=== PATIENT | female | born 1960 | race Caucasian/White ===

== ENCOUNTER 2017-09-23 06:08 | Day surgery (SDC) | payer OTHER ==
[~2017-09-23 06:08] MED LIST: Buffered Lidocaine 0.9% SYRIN* 5 ML/SYR SYRINGE INTRADERM ONE
[2017-09-23] MEDS ORDERED: Buffered Lidocaine 0.9% SYRIN* 5 ML/SYR SYRINGE ONE (06:41)
[2017-09-23] MEDS ORDERED: CeFAZolin 1 GM PREMIX(*) 1 GM BAG (REFRIGERATE) IVPB ONE (07:05)
[2017-09-23] MEDS ORDERED: ceFAZolin 2 GM PREMIX (*) 2 GM/50 ML BAG IVPB ONE (07:05)
[2017-09-23] MEDS ORDERED: Clindamycin 900 MG IVPREMIX(* 0 MG/0 ML SDV IV ONE (07:05)
[2017-09-23] MEDS ORDERED: Lidocaine 1% INJ* 10 MG/ML 30 ML SDV ONE (07:08)
[2017-09-23] MEDS ORDERED: fentaNYL* 50 MCG/ML 2 ML VIAL (100 MCG VIAL) ONE ×2 (07:51→08:31)
[2017-09-23] MEDS ORDERED: Midazolam* 1 MG/ML 5 ML VIAL (5 MG) ONE (07:51)
[2017-09-23] MEDS ORDERED: Propofol* 10 MG/ML 20 ML BTL IV PUSH ONE (08:05)
--- NOTE | 2017-09-23 09:02 | SURGPN ---
Brief Operative Note - Surgery Procedures: Procedures OPERATIVE REPORT PRE-OP: Uterine Sarcoma POST-OP: Same PROCEDURE: Insertion of left chest wall 8F percutaneous PowerPort, needle in SURGEON: MD Jessica ANESTHESIA:Local with MAC Dr. Christina ASST: none IVF: min EBL:min SPECIMEN: none DRAIN: none WOUND CLASS: One COMPLICATIONS: none TO PACU
[2017-09-23] MEDS ORDERED: oxyCODONE/Acetamin 5/325 MG* TAB ONE ×2 (09:05→09:27)
[2017-09-23] MEDS: oxyCODONE/Acetamin 5/325 MG* TAB PO PRN ×2 (09:07→09:27)
--- NOTE | 2017-09-23 09:44 | RAD ---
Indication: Central venous catheter placement. Single frontal view of the chest performed at 0915 hours was reviewed. Comparison is made with previous exam dated November 07, 2016. No mediastinal shift is noted. Cardiomegaly is noted. Central catheter is in place with the tip in the superior vena cava. No pneumothorax is noted. IMPRESSION: NO ACTIVE CARDIOPULMONARY DISEASE IS NOTED. CENTRAL CATHETER IN PLACE WITH NO PNEUMOTHORAX.
[2017-09-23 09:57] VITALS: BP 129/73
--- NOTE | 2017-09-23 10:10 | RAD ---
INDICATION: Power port placement. COMPARISON: Comparison is made with a prior chest x-ray study from November 07, 2016. TECHNIQUE: 59.8 seconds of intermittent fluoroscopic guidance were provided and 2 spot films of the chest were obtained in the operating room. FINDINGS: The films demonstrate a power port central venous catheter. The port is on the left side. The catheter tip projects over the right atrium. IMPRESSION: INTRAOPERATIVE CONTROL FILMS. CPT II Codes: 6045F
--- NOTE | 2017-09-24 04:02 | OP ---
CC: Dr. Viet Atkinson * DATE OF OPERATION: 09/23/17 - [facility] DATE OF : 64 SURGEON: Sachin Lopez MD DIE GRINDER: None. ANESTHESIOLOGIST: Dr. Christina. ANESTHESIA: Local with monitored anesthesia care. PRE-OP DIAGNOSIS: Uterine sarcoma. POST-OP DIAGNOSIS: Uterine sarcoma. OPERATIVE PROCEDURE: Insertion of a left chest wall percutaneous 8-Polish PowerPort, needle-in. ESTIMATED BLOOD LOSS: Minimal. SPECIMENS: None. DRAINS: None. COMPLICATIONS: None. WOUND CLASSIFICATION: I. DESCRIPTION OF PROCEDURE: Written and informed consent was obtained, preoperative antibiotics were administered and the left chest was marked with indelible ink. The patient was taken to the operating room and placed in the supine position. Sequential compression devices and a warming blanket were applied. The left and right chest and neck were prepped and draped in the usual sterile fashion. Time-out verification was completed. The patient was then placed in Trendelenburg position and 1% lidocaine with epinephrine was infiltrated in the left infraclavicular area at the midline and using an 18-gauge Tuohy needle after about 3 to 4 passes underneath the clavicle , I was able to puncture the subclavian vein with good blood return. The guidewire was inserted without difficulty and was then confirmed to be in the superior vena cava. Additional lidocaine was infiltrated inferior on the chest wall below the stick site and a transverse incision was made and subcutaneous pocket was made large enough to permit the port. The catheter was then tunnelled from the port pocket to the puncture site and using the sheath peel away device, the catheter was inserted into the right atrium under direct fluoroscopic vision. The catheter was pulled back slightly to optimize its position in the right part of the junction with the superior vena cava. The catheter was then cut to the appropriate length, attached to the port, which was then placed within the pocket. The catheter flushed well and withdrew blood with a Mandel needle without difficulty. Hemostasis was assured. The pocket site and the puncture site were then closed in 3-0 and 4-0 Polysorb suture. Steri-Strips were applied. At the completion of the case, a right angled Mandel needle was used to access the port and this was flushed with saline with subsequent heparin and a sterile dressing was applied. This was done in the anticipation of chemotherapy administration today. The patient tolerated the procedure well and was sent to the recovery room in stable condition. Postprocedural chest x-ray showed the catheter to be in good position without evidence of pneumothorax. [id number]/[facility] #: [id number] MTDD
== END 2017-09-23 09:57 | disposition home or self-care (01) ==
LOC: OR 06:08
PROVIDERS: ATTEND Surgery
DX: C54.2 Malignant neoplasm of myometrium (principal); E66.9 Obesity, unspecified; I10 Essential (primary) hypertension; J45.909 Unspecified asthma, uncomplicated; F41.9 Anxiety disorder, unspecified; Z88.1 Allergy status to other antibiotic agents; Z87.891 Personal history of nicotine dependence; E11.9 Type 2 diabetes mellitus without complications; Z68.42 Body mass index [BMI] 45.0-49.9, adult
CPT/HCPCS: 71010; A9270-GY; C1788; J0690; J1642; J2001; J2250; J2704; J3010

== ENCOUNTER 2018-01-16 09:22 | Inpatient (IN) | payer OTHER ==
[2018-01-16 09:57] LABS: Hematocrit 33 % (35-47); Hemoglobin 10.9 g/dl (12.0-16.0); Mean Corpuscular HGB Conc 34 g/dl (31-36); Mean Corpuscular Hemoglobin 31 pg (27-31); Mean Corpuscular Volume 93 fL (80-97); Mean Platelet Volume 9 um3 (7.4-10.4); Platelet Count 150 10^3/ul (150-450); Red Cell Distribution Width 21 % (10.5-15); White Blood Count 3.6 10^3/ul (3.5-10.8)
[2018-01-16 10:05] LABS: INR 1.21 (0.77-1.02)
[2018-01-16 10:12] LABS: EGFR Non-African American 117.2 (>60)
--- NOTE | 2018-01-16 10:30 | RAD ---
Indication: Shortness of breath. Single frontal view of the chest performed at 1010 hours was reviewed. Comparison is made with previous exam dated September 23, 2017. Cardiomegaly is noted. Interstitial edema consistent with vascular congestion is noted. Pacemaker leads are in place. IMPRESSION: CARDIOMEGALY WITH INTERSTITIAL EDEMA CONSISTENT WITH VASCULAR CONGESTION. CENTRAL LINE IN PLACE.
[2018-01-16 10:32] LABS: ABS Basophils 0 10^3/ul (0-0.2); ABS Eosinophils 0 10^3/ul (0-0.6); ABS Lymphocytes 1.1 10^3/ul (1.0-4.8); ABS Monocytes 1.3 10^3/ul (0-0.8); ABS Neutrophils 1.2 10^3/ul (1.5-7.7); ABS Nucleated RBC 0 10^3/ul; Eosinophil % 0.3 % (0-6); Lymphocyte % 30.4 % (25-47); Nucleated Red Blood Cells % 0
[2018-01-16] MEDS ORDERED: Furosemide IV* 10 MG/ML 10 ML VIAL (100 MG) IV ONE (10:44)
--- NOTE | 2018-01-16 11:00 | RAD ---
Indication: Shortness of breath. 2 views of the chest including dual energy PA views demonstrates cardiomegaly. Interstitial edema consistent with vascular congestion is noted. Central catheter is in place. When compared to September 23, 2017 increased interstitial edema is noted. IMPRESSION: Increased interstitial edema and cardiomegaly consistent with vascular congestion.
[2018-01-16] MEDS ORDERED: Nitroglycerin 2% OINT* 1 GM PAK TOPICAL ONE (11:06)
[2018-01-16] MEDS ORDERED: Docusate CAP* 100 MG PO PRN (11:46)
[2018-01-16] MEDS ORDERED: guaiFENesin/CODIEN 100MG-10MG* 5 ML UDC PO PRN (11:46)
[2018-01-16] MEDS ORDERED: Acetaminophen TAB* 325 MG PO PRN (11:49)
[2018-01-16] MEDS ORDERED: Ondansetron INJ* 2 MG/ML VIAL IV PRN (11:49)
[2018-01-16] MEDS ORDERED: Levalbuterol 1.25MG/0.5ML NEB INH PRN (11:53)
[2018-01-16] MEDS ORDERED: Albuterol HFA INHALER* 8 gm MDI INH SCH (12:00)
--- NOTE | 2018-01-16 12:03 | ED ---
Inge Wang Julia, scribed for Will Dickerson MD on 01/16/18 at 0933 . Shortness of Breath - HPI Summary HPI Summary: This patient is a 57 year old F presenting to [facility] from the [facility] due to low SaO2 of 60% and a respiratory rate between 31-38. Patient reports SOB and intermittent gradually worsening cough for the past month that is being treated with steroids. Patient denies fever, chills, lower extremity edema, and chest pain. Patient is currently at patient of Dr. Wharton for uterine cancer. Dr. Atkinson is expected to come visit this patient in the ED. - History of Current Complaint Hx Obtained From: Patient, Other: - nurse Onset/Duration: Lasting Weeks, Still Present Timing: Intermittent Episodes Lasting: Dyspnea At: Rest Associated Signs & Symptoms: Cough (Nonproductive) - Allergy/Home Medications Allergies/Adverse Reactions: Allergies Allergy/AdvReac Type Severity Reaction Status Date / Time doxycycline AdvReac Stomach Verified 12/30/17 09:29 Cramps Home Medications: Home Medications Cetirizine* [ZyrTEC 10 MG TAB*] 10 mg PO DAILY 01/16/18 [History Confirmed 01/16] Dexamethasone TAB* [Decadron TAB*] 4 mg PO BID PRN 01/16/18 [History Confirmed 01/16/18] Diltiazem CD CAP* [Cardizem CD CAP*] 120 mg PO DAILY 01/16/18 [History Confirmed 01/16/18] Docusate CAP* [Colace Cap*] 100 mg PO BID PRN 01/16/18 [History Confirmed ] Fluticasone HFA 220 mcg(NF) [Flovent HFA 220 Mcg(NF)] 1 puff INH BID 01/16/18 [ History Confirmed 01/16/18] Magic Mouth Was-KEVIN/MAAL/LIDO* 5 ml SWISH SPIT QID 01/16/18 [History Confirmed 01/16/18] Magnesium Oxide TAB* [MagOx 400 TAB*] 400 mg PO DAILY 01/16/18 [History Confirmed 01/16/18] Omeprazole CAP* [Prilosec CAP* 20 MG] 20 mg PO DAILY 01/16/18 [History Confirmed 01/16/18] Prochlorperazine TAB* [Compazine Tab*] 10 mg PO Q6H PRN 01/16/18 [History Confirmed 01/16/18] guaiFENesin/CODIEN 100MG-10MG* [Robitussin AC 100Mg-10Mg*] 10 ml PO Q4H PRN [History Confirmed 01/16/18] PMH/Surg Hx/FS Hx/Imm Hx Endocrine/Hematology History: Denies: Hx Diabetes, Hx Thyroid Disease Cardiovascular History: Reports: Hx Hypertension - ON MEDS, Other Cardiovascular Problems/Disorders - tachycardia Denies: Hx Congestive Heart Failure, Hx Pacemaker/ICD Respiratory History: Reports: Hx Asthma Denies: Hx Chronic Obstructive Pulmonary Disease (COPD) GI History: Denies: Hx Ulcer History: Reports: Other Problems/Disorders - Yearly UTI's Denies: Hx Dialysis, Hx Renal Disease Musculoskeletal History: Reports: Hx Arthritis, Hx Orthopedic Injury Sensory History: Reports: Hx Contacts or Glasses - not with Pt Denies: Hx Hearing Aid Opthamlomology History: Reports: Hx Contacts or Glasses - not with Pt Psychiatric History: Reports: Hx Anxiety, Hx Depression, Hx Panic Disorder - Cancer History Cancer Type, Location and Year: UTERINE Hx Chemotherapy: Yes - Surgical History Surgery Procedure, Year, and Place: 2010 - Right Rotator Cuff Surgery. 1981 - RIGHT knee surgery. trigger thumb-LEFT, RIGHT SHOULDER SURGERY, PARTIAL REMOVAL SMALL INTESTINES, PARTIAL BLADDER AND HYSTERECTOMY Hx Anesthesia Reactions: No - Immunization History Date of Tetanus Vaccine: up to date Date of Influenza Vaccine: 2014 Infectious Disease History: Denies: Hx Clostridium Difficile, Hx Hepatitis, Hx Human Immunodeficiency Virus (HIV), Hx of Known/Suspected MRSA, Hx Shingles, Hx Tuberculosis, Hx Known/ Suspected VRE, Hx Known/Suspected VRSA, History Other Infectious Disease - Family History Known Family History: Positive: Hypertension - Social History Alcohol Use: Daily Alcohol Amount: lots Hx Substance Use: No Substance Use Type: Reports: None Hx Tobacco Use: No Smoking Status (MU): Former Smoker Amount Used/How Often: < 1 ppd Length of Time of Smoking/Using Tobacco: 10 years Have You Smoked in the Last Year: No Review of Systems Negative: Fever, Chills Negative: Chest Pain Positive: Shortness Of Breath, Cough Negative: Edema All Other Systems Reviewed And Are Negative: Yes Physical Exam Triage Information Reviewed: Yes Vital Signs On Initial Exam: Initial Vitals Pulse Ox 99 01/16/18 09:30 Vital Signs Reviewed: Yes Appearance: Positive: Well-Appearing, No Pain Distress Skin: Positive: Warm, Skin Color Reflects Adequate Perfusion Head/Face: Positive: Normal Head/Face Inspection Eyes: Positive: EOMI ENT: Positive: Pharynx normal Neck: Positive: Supple, Nontender Respiratory/Lung Sounds: Positive: Clear to Auscultation, Breath Sounds Present Cardiovascular: Positive: RRR. Negative: Murmur Abdomen Description: Positive: Nontender Musculoskeletal: Positive: Strength/ROM Intact. Negative: Edema Left, Edema Right Neurological: Positive: Sensory/Motor Intact, Alert, Oriented to Person Place, Time, CN Intact II-III Psychiatric: Positive: Normal - Hesham Coma Scale Best Eye Response: 4 - Spontaneous Best Motor Response: 6 - Obeys Commands Best Verbal Response: 5 - Oriented Coma Scale Total: 15 Diagnostics - Vital Signs Vital Signs Temp Pulse Resp BP Pulse Ox 01/16/18 09:35 96 01/16/18 09:32 98.5 F 103 24 114/76 71 01/16/18 09:30 99 - Laboratory Result Diagrams: 01/16/18 09:45 01/16/18 09:45 Lab Statement: Any lab studies that have been ordered have been reviewed, and results considered in the medical decision making process. - Radiology CXR Radiology Interpretation Completed By: Radiologist - CARDIOMEGALY WITH INTERSTITIAL EDEMA CONSISTENT WITH VASCULAR CONGESTION. CENTRAL LINE IN PLACE. ED Physician has reviewed this report. CXR 2 Radiology Interpretation Completed By: Radiologist - Increased interstitial edema and cardiomegaly consistent with vascular congestion. ED Physician has viewed this report - EKG 0937 Cardiac Rate: NL - 98 BPM EKG Rhythm: Sinus Rhythm EKG Interpretation: nml OH, RBBB EKG Comparison: No Significant Change - RBBB present 12/24/16 Course/Dx - Course Course Of Treatment: Patient presents from [facility] for SOB with SaO2 of 60% and respiratory rate of 31-38. Patient is undergoing chemo for uterine cancer. An EKG reveals RBBB with no significant change from previous EKG. A CXR reveals cardiomegaly with interstitial fluid. A second CXR confirms these findings. Labs reveal a Lactic Acid of 3.2. Patient is given O2 therapy and Lasix. Dr. Atkinson saw this patient in the ED. He will admit the patient for further work up and management. - Diagnoses Provider Diagnoses: CHF (congestive heart failure), Hypoxia - Physician Notifications Discussed Care of Patient With: Viet Atkinson - oncology Time Discussed With Above Provider: 11:03 Instructed by Provider To: Will See In ED - Critical Care Time Critical Care Time: 30-74 min Discharge - Discharge Plan Condition: Good Disposition: ADMITTED TO [facility] Referrals: Fatoumata Lerner MD [Primary Care Provider] - The documentation as recorded by the Inge zamarripa Julia accurately reflects the service I personally performed and the decisions made by , Will Dickerson MD.
[2018-01-16] MEDS: LORazepam TAB(*) 1 MG PO PRN ×2 (13:04→20:16)
[2018-01-16] MEDS: methylPREDNISolone 125 MG* 2 ML VIAL IV SCH (13:04)
[2018-01-16] MEDS: Enoxaparin(*) 40 MG/0.4 ML SYR SUBCUT SCH (13:04)
[2018-01-16] MEDS: Magic Mouth Was-BEN/MAAL/LIDO SWISH SPIT SCH ×3 (14:05→20:17)
[2018-01-16] MEDS ORDERED: Loperamide CAP* 2 MG PO PRN (15:14)
[2018-01-16] MEDS: FLUTICASONE 100 MCG INH SCH (19:51)
[2018-01-16] MEDS: oxyCODONE/Acetamin 5/325 MG* TAB PO PRN (20:16)
[2018-01-16] MEDS: Senna TAB PO SCH (20:16)
[2018-01-16] MEDS ORDERED: Fluticasone HFA 220 mcg(NF) MDI INH SCH (21:00)
[2018-01-16] MEDS: D5W IVPB SCH (21:25)
[2018-01-16] MEDS: TRIMETH IVPB SCH (21:25)
[2018-01-16] MEDS: SULFAMETHOXAZOLE IVPB SCH (21:25)
[2018-01-17] MEDS: methylPREDNISolone 125 MG* 2 ML VIAL IV SCH ×2 (00:05→11:23)
--- NOTE | 2018-01-17 00:35 | HP ---
HISTORY AND PHYSICAL: DATE OF ADMISSION: 01/16/18 CHIEF COMPLAINT: Shortness of breath. 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 She was diagnosed in January 2018 and has had a very difficult course. She is currently on second line chemotherapy with gemcitabine and docetaxel, status post 2 cycles. She has had progressive shortness of breath has been on and off over the last 6 weeks. She responds well to steroids and has had some response to diuretics. In general, shortness of breath has been manageable. She was in the emergency room on 01/07/[address] angiogram. She has had diffuse interstitial pattern that was consistent with infection or pneumonia, could be a disease infiltration. Differential diagnosis included fluid overload with a BNP of 188. She had Lasix at that time and a short course of prednisone and improved significantly. She went up to [facility] last week for a second opinion and felt reasonably well during that trip; however, over the past several days, she has had progressive shortness of breath. She has difficulty with any ambulation and even some shortness of breath at rest. She is sleeping reasonably well at night. She has had no fevers or chills, she has had no cough , she is not having chest pain. No cardiac palpitations. No swelling in the ankles. No symptoms of orthostasis. She presented for an echocardiogram that was done earlier today. In the echocardiogram suite xygen saturation in the 70s on room air and was sent to the emergency room. A chest x-ray was done, which essentially is unchanged from prior studies. She had an oxygen saturation of 71% on room air, went up to 98% has required 6 to 8 L of oxygen per nasal cannula. Her blood pressure is 148/88 and vital signs are otherwise stable. Blood work shows hemoglobin of 10.9 and a white count of 3.6. She has a sodium that is down to 125 from a baseline of 135 and she had been 129 recently, she had a lactic acid slightly elevated to 3.2 and a BNP of 135. Notably, she has a LDH of 664. She is being admitted for further evaluation and shortness of breath. PAST MEDICAL HISTORY: 1. Uterine leiomyosarcoma as noted above. 2. Anxiety. 3. Diabetes type 2. 4. Hypertension. 5. Osteoarthritis. PAST SURGICAL HISTORY: 1. In July 2017, had partial tumor resection. 2. History of rotator cuff repair. MEDICATIONS: She takes: 1. Albuterol 1 to 2 puffs q.6 p.r.n. 2. Cetirizine 10 mg daily. 3. Colace 1 to 2 tablets daily. 4. Compazine 10 mg q.6 p.r.n. 5. Omeprazole 20 mg daily. 6. Fexofenadine 20 mg p.r.n. 7. Flovent inhaler 100 mcg 2 puffs daily. 8. Codeine based cough syrup 10 mL q.4 p.r.n. 9. Lasix 20 mg a day, recently up to 40 mg temporarily. 10. Lorazepam 1 mg a day. 11. Magnesium oxide 400 mg b.i.d. 12. Metoprolol ER 100 mg daily. ALLERGIES: DOXYCYCLINE. 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 FAMILY HISTORY: Mother with breast cancer at 65, sister with pancreatic cancer at 40, father with prostate cancer at 80. REVIEW OF SYSTEMS: General: Some fatigue. No fevers, chills or night sweats. HEENT: Negative. Pulmonary: Shortness of breath as noted above. Cardiac: No chest pain or palpitations. GI: Her appetite has been fine. She continues to eat well. She is moving her bowels. : Polyuria with Lasix, that has been difficult at times. Musculoskeletal: She has chronic arthritis, stable at this time. Neurologic: Negative. Skin: Negative. PHYSICAL EXAMINATION VITAL SIGNS: Saturating 96% on 8 L nasal cannula, temperature 98.9, BP 148/88, pulse 97, respirations 16. HEENT: Slightly cushingoid. Mucosa moist. No lesions, no JVD. LUNGS: She does not have any wheezes, some scattered crackles. Good air movement, both sides. HEART: Regular rhythm. S1, S2. Tachycardic. ABDOMEN: Obese, otherwise nonspecific exam. EXTREMITIES: +1 to trace edema, bilateral lower extremities. Good pulses x4. NEUROLOGIC: Alert and oriented x3, conversational and grossly nonfocal. SKIN: No rashes or lesions. DIAGNOSTIC STUDIES/LAB DATA: Relevant labs as noted above. She also had an LDH of 64. ASSESSMENT AND PLAN: A 57-year-old female with uterine leiomyosarcoma. She presents with shortness of breath, hyponatremia and elevated LDH. Differential diagnoses for diffuse air space disease includes atypical infection such as pneumococcus and PCP pneumonia, progressive malignancy, side effect of gemcitabine. While she has responded to steroids in the past, we are having diminishing effectiveness. 1. She will be admitted for respiratory failure. We will continue her on the nasal cannula oxygen. We will start her on Solu-Medrol 60 b.i.d. Because Pneumococcus is on the differential, we will start high dose Bactrim at 15 mg/ kg divided TID. I would like to have Dr. Simpson see her and perform bronchoscopy, but she is unavailable today and tomorrow. We will consider consultation on Saturday depending on patient's status. She is full code at this time. 2. Hyponatremia. Could be secondary to her pulmonary process, dehydration may be playing a role. We will hold on IV fluids, but also not give her any additional Lasix. We will check sodium tomorrow and if drops further, consider demeclocycline. 3. Cardiac. We will follow up on echocardiogram done today, telemetry. 4. Malignancy. She was seen at [facility] for second opinion [facility]. Strong family history of cancer. Tumor without microsatellite instability, she is PD-1+ at 30% of cells. Current plan was to continue with one additional cycle of chemotherapy, but it is questionable whether or not we will be able to proceed with that. 5. DVT prophylaxis. Per highest risk patients. . [id number]/[facility] #: [id number] [facility]
[2018-01-17] MEDS: oxyCODONE/Acetamin 5/325 MG* TAB PO PRN ×4 (01:10→21:36)
[2018-01-17] MEDS: D5W IVPB SCH ×3 (04:59→21:30)
[2018-01-17] MEDS: SULFAMETHOXAZOLE IVPB SCH ×3 (04:59→21:30)
[2018-01-17] MEDS: TRIMETH IVPB SCH ×3 (04:59→21:30)
[2018-01-17] MEDS: Senna TAB PO SCH ×2 (08:49→20:55)
[2018-01-17] MEDS: Metoprolol Succinate XL TAB* 100 MG PO SCH (08:56)
[2018-01-17] MEDS: Diltiazem CD CAP* 120 MG PO SCH (08:56)
[2018-01-17] MEDS: Omeprazole CAP* 20 MG PO SCH (08:56)
[2018-01-17] MEDS: Magic Mouth Was-BEN/MAAL/LIDO SWISH SPIT SCH ×4 (08:57→21:24)
[2018-01-17] MEDS: FLUTICASONE 100 MCG INH SCH ×2 (09:06→20:07)
[2018-01-17] MEDS: Enoxaparin(*) 40 MG/0.4 ML SYR SUBCUT SCH (11:24)
[2018-01-17] MEDS: Prochlorperazine TAB* 10 MG PO PRN (18:49)
--- NOTE | 2018-01-17 18:51 | PN ---
Progress Note - Progress Note Date of Service: 01/17/18 SOAP: Subjective: []Breathing is better today a little bit on steroids. She is eating. Still cannot do much, in bed. Not in pain. No fevers. Acetaminophen (Tylenol Tab*) 650 mg PO Q4H PRN PRN Reason: FEVER/PAIN Diltiazem HCl (Cardizem Cd Cap*) 120 mg PO DAILY [facility] Last Admin: 01/17/18 08:56 Dose: 120 mg Docusate Sodium (Colace Cap*) 100 mg PO BID PRN PRN Reason: CONSTIPATION Enoxaparin Sodium (Lovenox(*)) 40 mg SUBCUT Q24H [facility] Last Admin: 01/17/18 11:24 Dose: 40 mg Fluticasone Propionate (Flovent Diskus 100 Mcg(Nf)) 1 puff INH BID [facility] Last Admin: 01/17/18 09:06 Dose: 1 puff Guaifenesin/Codeine Phosphate (Robitussin Ac 100mg-10mg*) 10 ml PO Q4H PRN PRN Reason: COUGH Heparin Sodium (Porcine) (Heparin Flush Port (Ivad)) 5 ml FLUSH 0600,1800 [facility] PRN Reason: Protocol Last Admin: 01/17/18 16:00 Dose: 5 ml Trimethoprim/Sulfamethoxazole (580 mg/ Dextrose) 636.25 mls @ 254.5 mls/hr IVPB Q8H [facility] Last Admin: 01/17/18 12:55 Dose: 254.5 mls/hr Levalbuterol HCl (Xopenex 1.25 Mg/0.5 Ml Neb.Stella*) 1.25 mg INH Q2H PRN PRN Reason: SHORTNESS OF BREATH Last Admin: 01/16/18 19:49 Dose: 1.25 mg Loperamide HCl (Imodium Cap*) 2 mg PO .SEE DIRECTIONS PRN PRN Reason: DIARRHEA Lorazepam (Ativan Tab(*)) 1 mg PO TID PRN PRN Reason: ANXIETY Last Admin: 01/16/18 20:16 Dose: 1 mg Methylprednisolone Sodium Succinate (Solu-Medrol 125mg *) 60 mg IV Q12H [facility] Last Admin: 01/17/18 11:23 Dose: 60 mg Metoprolol Succinate (Toprol Xl Tab*) 100 mg PO QAM [facility] Last Admin: 01/17/18 08:56 Dose: 100 mg Multi-Ingredient Mouthwash/Gargle (Magic Mouth Was-Kevyn/Maal/Lido*) 5 ml SWISH SPIT QID [facility] Last Admin: 01/17/18 17:22 Dose: 5 ml Omeprazole (Prilosec Cap*) 20 mg PO DAILY@0730 [facility] Last Admin: 01/17/18 08:56 Dose: 20 mg Ondansetron HCl (Zofran Inj*) 4 mg IV Q4H PRN PRN Reason: NAUSEA/VOMITING Oxycodone/Acetaminophen (Percocet 5/325 Tab*) 1 tab PO Q4H PRN PRN Reason: Pain Last Admin: 01/17/18 15:57 Dose: 1 tab Prochlorperazine (Compazine Tab*) 10 mg PO Q6H PRN PRN Reason: NAUSEA Senna (Senokot Tab*) 1 tab PO BID [facility] Last Admin: 01/17/18 08:49 Dose: Not Given Objective: [] Vital Signs Temp Pulse Resp BP Pulse Ox 97.5 F 89 24 119/71 97 01/17/18 15:41 01/17/18 15:41 01/17/18 18:06 01/17/18 15:41 01/17/18 15:41 HEENT: No thrush, NC, no JVD Good air movement, scattered crackles. 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 She has progressive SOB and hypoxia with ground glass air space disease. Differential is reaction to chemotherapy, infection (possible PCP), this is atypical for malignancy. Admission and placed on steroids and HD Bactrim. Subjectively improved today. Plan: []1. Respiratory Failure. Empiric therapy with Bactrim and Prednisone. Will follow through weekend and pulmonary consultation on Saturday. Titrate O2 to sat 90%. 2. Hyponatremia. 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 Follow and check in am. 3. Card. Mild increase in BNP. Await read from [facility] on Saturday. 4. Full code
[2018-01-17] MEDS: LORazepam TAB(*) 1 MG PO PRN (21:29)
[2018-01-18] MEDS: methylPREDNISolone 125 MG* 2 ML VIAL IV SCH ×3 (00:07→23:29)
[2018-01-18] MEDS: SULFAMETHOXAZOLE IVPB SCH ×3 (04:42→20:54)
[2018-01-18] MEDS: TRIMETH IVPB SCH ×3 (04:42→20:54)
[2018-01-18] MEDS: D5W IVPB SCH ×3 (04:42→20:54)
[2018-01-18] MEDS: oxyCODONE/Acetamin 5/325 MG* TAB PO PRN ×4 (04:48→20:57)
[2018-01-18 04:52] LABS: Hematocrit 32 % (35-47); Hemoglobin 10.6 g/dl (12.0-16.0); Mean Corpuscular HGB Conc 34 g/dl (31-36); Mean Corpuscular Hemoglobin 31 pg (27-31); Mean Corpuscular Volume 93 fL (80-97); Mean Platelet Volume 9 um3 (7.4-10.4); Platelet Count 266 10^3/ul (150-450); Red Blood Count 3.39 10^6/ul (4.0-5.4); Red Cell Distribution Width 21 % (10.5-15); White Blood Count 4.4 10^3/ul (3.5-10.8)
[2018-01-18 05:02] LABS: EGFR Non-African American 84.1 (>60)
[2018-01-18 05:16] LABS: ABS Basophils 0 10^3/ul (0-0.2); ABS Eosinophils 0 10^3/ul (0-0.6); ABS Lymphocytes 0.6 10^3/ul (1.0-4.8); ABS Neutrophils 2.8 10^3/ul (1.5-7.7); ABS Nucleated RBC 0.1 10^3/ul; Eosinophil % 0 % (0-6); Lymphocyte % 13.6 % (25-47); Nucleated Red Blood Cells % 1.3
[2018-01-18] MEDS: FLUTICASONE 100 MCG INH SCH (07:43)
[2018-01-18] MEDS: Omeprazole CAP* 20 MG PO SCH (08:47)
[2018-01-18] MEDS: Diltiazem CD CAP* 120 MG PO SCH (08:47)
[2018-01-18] MEDS: Metoprolol Succinate XL TAB* 100 MG PO SCH (08:47)
[2018-01-18] MEDS: Senna TAB PO SCH ×2 (08:48→20:59)
[2018-01-18] MEDS: Magic Mouth Was-BEN/MAAL/LIDO SWISH SPIT SCH ×4 (08:48→20:59)
--- NOTE | 2018-01-18 08:49 | PN ---
Progress Note - Progress Note Date of Service: 01/18/18 SOAP: Subjective: []Breathing improved from admission but still very short. Cannot get out of bed without tachycardia and SOB. No fevers. Has mouth soars and difficulty eating. Drinking allot. Urinating well. Acetaminophen (Tylenol Tab*) 650 mg PO Q4H PRN PRN Reason: FEVER/PAIN Diltiazem HCl (Cardizem Cd Cap*) 120 mg PO DAILY [facility] Last Admin: 01/17/18 08:56 Dose: 120 mg Docusate Sodium (Colace Cap*) 100 mg PO BID PRN PRN Reason: CONSTIPATION Enoxaparin Sodium (Lovenox(*)) 40 mg SUBCUT Q24H [facility] Last Admin: 01/17/18 11:24 Dose: 40 mg Fluticasone Propionate (Flovent Diskus 100 Mcg(Nf)) 1 puff INH BID [facility] Last Admin: 01/18/18 07:43 Dose: 1 puff Guaifenesin/Codeine Phosphate (Robitussin Ac 100mg-10mg*) 10 ml PO Q4H PRN PRN Reason: COUGH Heparin Sodium (Porcine) (Heparin Flush Port (Ivad)) 5 ml FLUSH 0600,1800 [facility] PRN Reason: Protocol Last Admin: 01/18/18 05:12 Dose: Not Given Trimethoprim/Sulfamethoxazole (580 mg/ Dextrose) 636.25 mls @ 254.5 mls/hr IVPB Q8H [facility] Last Admin: 01/18/18 04:42 Dose: 254.5 mls/hr Levalbuterol HCl (Xopenex 1.25 Mg/0.5 Ml Neb.Stella*) 1.25 mg INH Q2H PRN PRN Reason: SHORTNESS OF BREATH Last Admin: 01/16/18 19:49 Dose: 1.25 mg Loperamide HCl (Imodium Cap*) 2 mg PO .SEE DIRECTIONS PRN PRN Reason: DIARRHEA Lorazepam (Ativan Tab(*)) 1 mg PO TID PRN PRN Reason: ANXIETY Last Admin: 01/17/18 21:29 Dose: 1 mg Methylprednisolone Sodium Succinate (Solu-Medrol 125mg *) 60 mg IV Q12H [facility] Last Admin: 01/18/18 00:07 Dose: 60 mg Metoprolol Succinate (Toprol Xl Tab*) 100 mg PO QAM [facility] Last Admin: 01/17/18 08:56 Dose: 100 mg Multi-Ingredient Mouthwash/Gargle (Magic Mouth Was-Kevyn/Maal/Lido*) 5 ml SWISH SPIT QID [facility] Last Admin: 01/17/18 21:24 Dose: 5 ml Omeprazole (Prilosec Cap*) 20 mg PO DAILY@0730 [facility] Last Admin: 01/17/18 08:56 Dose: 20 mg Ondansetron HCl (Zofran Inj*) 4 mg IV Q4H PRN PRN Reason: NAUSEA/VOMITING Oxycodone/Acetaminophen (Percocet 5/325 Tab*) 1 tab PO Q4H PRN PRN Reason: Pain Last Admin: 01/18/18 04:48 Dose: 1 tab Prochlorperazine (Compazine Tab*) 10 mg PO Q6H PRN PRN Reason: NAUSEA Last Admin: 01/17/18 18:49 Dose: 10 mg Senna (Senokot Tab*) 1 tab PO BID [facility] Last Admin: 01/17/18 20:55 Dose: Not Given Objective: [] Vital Signs Temp Pulse Resp BP Pulse Ox 98.4 F 83 20 112/75 99 01/18/18 07:52 01/18/18 07:52 01/18/18 07:52 01/18/18 07:52 01/18/18 07:52 4-5 L NC O2 HEENT: No thrush, NC, no JVD Good air movement, scattered crackles. 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 She has progressive SOB and hypoxia with ground glass air space disease. Differential is reaction to chemotherapy, infection (possible PCP), this is atypical for malignancy. Admission and placed on steroids and HD Bactrim. She is stable but without quantifiable improvement since admission. Plan: []1. Respiratory Failure. Empiric therapy with Bactrim and Prednisone. Will follow through weekend and pulmonary consultation on Saturday. Titrate O2 to sat 90%. Will hold Flovent while on Prednisone. 2. Hyponatremia. 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 Slightly improved 3. Card. Mild increase in BNP. Await read from Echo on Saturday. 4. Mouth soars. Using MMW, she is now day 11 from chemotherapy and expect improvement. 5. Increased Glucose on steroids with background insulin resistance. Will start Metformin at 500 mg bid. Hold for IVC.
[2018-01-18 11:12] LABS: EGFR Non-African American 80.2 (>60)
[2018-01-18] MEDS: Enoxaparin(*) 40 MG/0.4 ML SYR SUBCUT SCH (12:25)
[2018-01-18] MEDS: metFORMIN* 500 MG TAB PO SCH (17:13)
[2018-01-18] MEDS: Prochlorperazine TAB* 10 MG PO PRN (17:46)
[2018-01-18] MEDS: LORazepam TAB(*) 1 MG PO PRN (20:58)
[2018-01-19] MEDS: TRIMETH IVPB SCH ×4 (05:38→22:09)
[2018-01-19] MEDS: oxyCODONE/Acetamin 5/325 MG* TAB PO PRN ×4 (05:38→21:20)
[2018-01-19] MEDS: D5W IVPB SCH ×4 (05:38→22:09)
[2018-01-19] MEDS: SULFAMETHOXAZOLE IVPB SCH ×4 (05:38→22:09)
[2018-01-19 05:44] LABS: Hematocrit 31 % (35-47); Hemoglobin 10.5 g/dl (12.0-16.0); Mean Corpuscular HGB Conc 34 g/dl (31-36); Mean Corpuscular Hemoglobin 31 pg (27-31); Mean Corpuscular Volume 93 fL (80-97); Mean Platelet Volume 8 um3 (7.4-10.4); Platelet Count 335 10^3/ul (150-450); Red Blood Count 3.38 10^6/ul (4.0-5.4); Red Cell Distribution Width 21 % (10.5-15); White Blood Count 6.9 10^3/ul (3.5-10.8)
[2018-01-19 06:16] LABS: ABS Basophils 0 10^3/ul (0-0.2); ABS Eosinophils 0 10^3/ul (0-0.6); ABS Lymphocytes 0.7 10^3/ul (1.0-4.8); ABS Neutrophils 5.2 10^3/ul (1.5-7.7); ABS Nucleated RBC 0 10^3/ul; Eosinophil % 0 % (0-6); Lymphocyte % 9.8 % (25-47); Nucleated Red Blood Cells % 0.5
[2018-01-19] MEDS: metFORMIN* 500 MG TAB PO SCH ×2 (07:32→16:12)
[2018-01-19] MEDS: Omeprazole CAP* 20 MG PO SCH (07:32)
[2018-01-19] MEDS: Diltiazem CD CAP* 120 MG PO SCH (08:32)
[2018-01-19] MEDS: Metoprolol Succinate XL TAB* 100 MG PO SCH (08:33)
[2018-01-19] MEDS: Magic Mouth Was-BEN/MAAL/LIDO SWISH SPIT SCH ×4 (08:33→21:53)
[2018-01-19] MEDS: Senna TAB PO SCH ×2 (08:46→21:52)
--- NOTE | 2018-01-19 09:00 | PN ---
Progress Note - Progress Note Date of Service: 01/19/18 SOAP: Subjective: []Maybe a little better. Still very short of breath walking. Ok laying in bed. Has not been up much. Urination is fine. No fevers. Acetaminophen (Tylenol Tab*) 650 mg PO Q4H PRN PRN Reason: FEVER/PAIN Diltiazem HCl (Cardizem Cd Cap*) 120 mg PO DAILY [facility] Last Admin: 01/19/18 08:32 Dose: 120 mg Docusate Sodium (Colace Cap*) 100 mg PO BID PRN PRN Reason: CONSTIPATION Enoxaparin Sodium (Lovenox(*)) 40 mg SUBCUT Q24H [facility] Last Admin: 01/18/18 12:25 Dose: 40 mg Guaifenesin/Codeine Phosphate (Robitussin Ac 100mg-10mg*) 10 ml PO Q4H PRN PRN Reason: COUGH Heparin Sodium (Porcine) (Heparin Flush Port (Ivad)) 5 ml FLUSH 0600,1800 [facility] PRN Reason: Protocol Last Admin: 01/19/18 08:38 Dose: 5 ml Trimethoprim/Sulfamethoxazole (580 mg/ Dextrose) 636.25 mls @ 254.5 mls/hr IVPB Q8H [facility] Last Admin: 01/19/18 05:38 Dose: 254.5 mls/hr Levalbuterol HCl (Xopenex 1.25 Mg/0.5 Ml Neb.Stella*) 1.25 mg INH Q2H PRN PRN Reason: SHORTNESS OF BREATH Last Admin: 01/16/18 19:49 Dose: 1.25 mg Loperamide HCl (Imodium Cap*) 2 mg PO .SEE DIRECTIONS PRN PRN Reason: DIARRHEA Last Admin: 01/18/18 09:31 Dose: 2 mg Lorazepam (Ativan Tab(*)) 1 mg PO TID PRN PRN Reason: ANXIETY Last Admin: 01/18/18 20:58 Dose: 1 mg Metformin HCl (Glucophage*) 500 mg PO 0800,1700 [facility] Last Admin: 01/19/18 07:32 Dose: 500 mg Methylprednisolone Sodium Succinate (Solu-Medrol 125mg *) 60 mg IV Q12H [facility] Last Admin: 01/18/18 23:29 Dose: 60 mg Metoprolol Succinate (Toprol Xl Tab*) 100 mg PO QAM [facility] Last Admin: 01/19/18 08:33 Dose: 100 mg Multi-Ingredient Mouthwash/Gargle (Magic Mouth Was-Kevyn/Maal/Lido*) 5 ml SWISH SPIT QID [facility] Last Admin: 01/19/18 08:33 Dose: 5 ml Omeprazole (Prilosec Cap*) 20 mg PO DAILY@0730 [facility] Last Admin: 01/19/18 07:32 Dose: 20 mg Ondansetron HCl (Zofran Inj*) 4 mg IV Q4H PRN PRN Reason: NAUSEA/VOMITING Oxycodone/Acetaminophen (Percocet 5/325 Tab*) 1 tab PO Q4H PRN PRN Reason: Pain Last Admin: 01/19/18 05:38 Dose: 1 tab Prochlorperazine (Compazine Tab*) 10 mg PO Q6H PRN PRN Reason: NAUSEA Last Admin: 01/18/18 17:46 Dose: 10 mg Senna (Senokot Tab*) 1 tab PO BID [facility] Last Admin: 01/19/18 08:46 Dose: Not Given Objective: [] Vital Signs Temp Pulse Resp BP Pulse Ox 97.7 F 82 20 116/70 99 01/19/18 08:16 01/19/18 08:16 01/19/18 08:16 01/19/18 08:16 01/19/18 08:16 3 L NC O2, sta 97%, HEENT: No thrush, NC, no JVD Good air movement, scattered crackles. 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 She has progressive SOB and hypoxia with ground glass air space disease. Differential is reaction to chemotherapy, infection (possible PCP), this is atypical for malignancy. Admission and placed on steroids and HD Bactrim. May be slightly improved today. I am hopefull that antibiotics are effective. Plan: []1. Respiratory Failure. Empiric therapy with Bactrim and steriods. Will follow through weekend and pulmonary consultation on Saturday. Titrate O2 to sat 90%. Will hold Flovent on systemic steroids. Will to to Prednisone from Solu- medrol. 2. Hyponatremia. 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 Labs pending today 3. Card. Echo done, await read. 4. Mouth soars. Using MMW, a little better today. 5. Increased Glucose on steroids with background insulin resistance - Metformin at 500 mg bid. - Labs pending today
[2018-01-19 09:04] LABS: Hematocrit 32 % (35-47); Hemoglobin 10.8 g/dl (12.0-16.0); Mean Corpuscular HGB Conc 33 g/dl (31-36); Mean Corpuscular Hemoglobin 31 pg (27-31); Mean Corpuscular Volume 94 fL (80-97); Mean Platelet Volume 8 um3 (7.4-10.4); Platelet Count 382 10^3/ul (150-450); Red Blood Count 3.46 10^6/ul (4.0-5.4); Red Cell Distribution Width 21 % (10.5-15)
[2018-01-19 09:14] LABS: EGFR Non-African American 82.8 (>60)
[2018-01-19] MEDS ORDERED: predniSONE TAB* 20 MG PO SCH (10:00)
[2018-01-19 10:02] LABS: ABS Basophils 0 10^3/ul (0-0.2); ABS Eosinophils 0 10^3/ul (0-0.6); ABS Lymphocytes 0.9 10^3/ul (1.0-4.8); ABS Monocytes 1.2 10^3/ul (0-0.8); ABS Neutrophils 5.9 10^3/ul (1.5-7.7); ABS Nucleated RBC 0 10^3/ul; Eosinophil % 0 % (0-6); Lymphocyte % 10.7 % (25-47); Nucleated Red Blood Cells % 0.4
[2018-01-19] MEDS: Enoxaparin(*) 40 MG/0.4 ML SYR SUBCUT SCH (11:07)
[2018-01-19] MEDS: Prochlorperazine TAB* 10 MG PO PRN (19:31)
--- NOTE | 2018-01-19 20:03 | CONSULT ---
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 Pt also reports cough productive of yellow phleghm in the beginning, currently with dry cough. Pt denies fevers or chills. Pt was treated with prednisone in the past with improvement in sx. She was noted to be hypoxic while having ECHO and was transferred for admission. She has needed supplemental O2 at 6L/min on admission, currently tapered to 3L/min. Pt reports slight improvement in sx. Denies chest pain, palipitations, loss of weight or appetite. CTA of chest was personally reviewed in comparison with prior CT chest from 2016 that showed GGO b/l along with nodules measuring max of 0.9 cm mostly in left lung noted on prior CT chest, tiny left pl effusion, mild bronchiectasis at bases b/l, no significant mediastinal or hilar adenopathy noted. Pt also noted to have hyponatremia and elevated LDH. No leucocytosis or elevated eosnophil count was noted. Pt was started on empiric therapy for Pneumocystis with Bactrim, Solumedrol. She was also being diuresed for possible fluid overload. ECHo didnot show significant change. PMHx: Uterne cancer Anxiety HTN DM OA Partial tumor resection Rotator cuff repair All: Doxyxycline Meds: LORazepam TAB(*) [Ativan 1 MG TAB (*)] 1 mg PO TID PRN Metoprolol Succinate XL TAB* [Toprol XL TAB*] 100 mg PO QAM Albuterol HFA INHALER* [Ventolin HFA Inhaler*] 2 puff INH Q6HR Fluticasone DISKUS 100 MCG(NF) [Flovent Diskus 100 MCG(NF)] 1 puff INH BID PRN Furosemide TAB* [Lasix TAB*] 40 mg PO QAM Cetirizine* [ZyrTEC 10 MG TAB*] 10 mg PO DAILY Dexamethasone TAB* [Decadron TAB*] 4 mg PO BID PRN Diltiazem CD CAP* [Cardizem CD CAP*] 120 mg PO DAILY Docusate CAP* [Colace Cap*] 100 mg PO BID PRN Fluticasone HFA 220 mcg(NF) [Flovent HFA 220 Mcg(NF)] 1 puff INH BID Magic Mouth Was-KEVIN/MAAL/LIDO* 5 ml SWISH SPIT QID Magnesium Oxide TAB* [MagOx 400 TAB*] 400 mg PO DAILY Omeprazole CAP* [Prilosec CAP* 20 MG] 20 mg PO DAILY Prochlorperazine TAB* [Compazine Tab*] 10 mg PO Q6H PRN guaiFENesin/CODIEN 100MG-10MG* [Robitussin AC 100Mg-10Mg*] 10 ml PO Q4H PRN Social Hx: , non-smoker FHx: Mother with breast cancer, father with prostate cancer, sister with pancreatic cancer ROS; All 14 systems reviewed, pertient positives and negatives as above in HPI Vital Signs Temp Pulse Resp BP Pulse Ox 97.4 F 88 22 123/56 96 01/19/18 19:28 01/19/18 19:28 01/19/18 19:32 01/19/18 19:28 01/19/18 19:28 O/E: Pt in NAD, alert, awake HEENT: PERRLA, No JVD Lungs: Crackles at bases b/l CVS: S1, S+, regular Abd: SOft, BS+ Neuro: No focal defecits Skin: NO rash or bruise Laboratory Results - last 24 hr 01/19/18 01/19/18 01/19/18 05:25 05:25 08:35 WBC 6.9 8.0 RBC 3.38 L 3.46 L Hgb 10.5 L 10.8 L Hct 31 L 32 L MCV 93 94 MCH 31 31 MCHC 34 33 RDW 21 H 21 H Plt Count 335 382 MPV 8 8 Neut % (Auto) 75.2 73.8 Lymph % (Auto) 9.8 L 10.7 L [place] % (Auto) 14.9 H 15.4 H Eos % (Auto) 0 0 Baso % (Auto) 0.1 0.1 Absolute Neuts (auto) 5.2 5.9 Absolute Lymphs (auto) 0.7 L 0.9 L Absolute Monos (auto) 1.0 H 1.2 H Absolute Eos (auto) 0 0 Absolute Basos (auto) 0 0 Absolute Nucleated RBC 0 0 Nucleated RBC % 0.5 0.4 Large Platelets Present Sodium Potassium Chloride Carbon Dioxide Anion Gap BUN Creatinine Est GFR ( Amer) Est GFR (Non-Af Amer) BUN/Creatinine Ratio Glucose Calcium Magnesium 2.0 Total Bilirubin AST ALT Alkaline Phosphatase Lactate Dehydrogenase 499 H Total Protein Albumin Globulin Albumin/Globulin Ratio 01/19/18 08:35 WBC RBC Hgb Hct MCV MCH MCHC RDW Plt Count MPV Neut % (Auto) Lymph % (Auto) [place] % (Auto) Eos % (Auto) Baso % (Auto) Absolute Neuts (auto) Absolute Lymphs (auto) Absolute Monos (auto) Absolute Eos (auto) Absolute Basos (auto) Absolute Nucleated RBC Nucleated RBC % Large Platelets Sodium 124 L Potassium 3.7 Chloride 86 L Carbon Dioxide 28 Anion Gap 10 BUN 8 Creatinine 0.73 Est GFR ( Amer) 106.4 Est GFR (Non-Af Amer) 82.8 BUN/Creatinine Ratio 11.0 Glucose 202 H Calcium 10.3 Magnesium Total Bilirubin 0.30 AST 29 ALT 61 H Alkaline Phosphatase 72 Lactate Dehydrogenase Total Protein 6.2 L Albumin 3.6 Globulin 2.6 Albumin/Globulin Ratio 1.4 CT chest as described above in HPI I/R: 57 y o f with h/o Uterine leiomyoma a/w worsening SOB, dry cough. Pt was treated with prednisone in the past with improvement in sx, recurred again Infectious(bacterial vs viral vs PCP) vs inflammatory(BOOP/RECOVERY ASSISTANT) versus lymphangetic spread of malignancy versus chemotherapy side effect Improvement with prednisone more in favor of PCP versus BOOP/RECOVERY ASSISTANT Pt with nodules in lung and in liver nodule concerning for metastatic disease and lymphangetic spread Pt improving clinically, FiO2 requirements trending down Will wait on bronchoscopy at this time Will complete 21 day course of Bactrim and prednisone Hyponatremia- SIADH, fluid restriction WIll monitor closely and consider bronchoscopy if sx recur and no significant improvement
[2018-01-19] MEDS ORDERED: TRIMETH IVPB SCH (21:44)
[2018-01-19] MEDS ORDERED: SULFAMETHOXAZOLE IVPB SCH (21:44)
[2018-01-19] MEDS ORDERED: D5W IVPB SCH (21:44)
[2018-01-19] MEDS: LORazepam TAB(*) 1 MG PO PRN (21:53)
[2018-01-20] MEDS: TRIMETH IVPB SCH (05:38)
[2018-01-20] MEDS: D5W IVPB SCH (05:38)
[2018-01-20] MEDS: SULFAMETHOXAZOLE IVPB SCH (05:38)
[2018-01-20 05:43] LABS: Hematocrit 33 % (35-47); Mean Corpuscular HGB Conc 33 g/dl (31-36); Mean Corpuscular Hemoglobin 31 pg (27-31); Mean Corpuscular Volume 93 fL (80-97); Mean Platelet Volume 8 um3 (7.4-10.4); Platelet Count 461 10^3/ul (150-450); Red Cell Distribution Width 21 % (10.5-15); White Blood Count 11.2 10^3/ul (3.5-10.8)
[2018-01-20] MEDS: oxyCODONE/Acetamin 5/325 MG* TAB PO PRN (05:50)
[2018-01-20 06:11] LABS: EGFR Non-African American 85.5 (>60)
[2018-01-20 06:29] LABS: ABS Basophils 0 10^3/ul (0-0.2); ABS Eosinophils 0 10^3/ul (0-0.6); ABS Lymphocytes 1.3 10^3/ul (1.0-4.8); ABS Monocytes 1.7 10^3/ul (0-0.8); ABS Neutrophils 8.2 10^3/ul (1.5-7.7); ABS Nucleated RBC 0 10^3/ul; Eosinophil % 0 % (0-6); Lymphocyte % 11.3 % (25-47); Nucleated Red Blood Cells % 0.2
--- NOTE | 2018-01-20 08:40 | PN ---
Progress Note - Progress Note Date of Service: 01/20/18 SOAP: Subjective: []Thinks is getting a little better. Able to walk yesterday. Tolerating 3-4L NC O2. No fevers. Eating Acetaminophen (Tylenol Tab*) 650 mg PO Q4H PRN PRN Reason: FEVER/PAIN Diltiazem HCl (Cardizem Cd Cap*) 120 mg PO DAILY [facility] Last Admin: 01/19/18 08:32 Dose: 120 mg Docusate Sodium (Colace Cap*) 100 mg PO BID PRN PRN Reason: CONSTIPATION Enoxaparin Sodium (Lovenox(*)) 40 mg SUBCUT Q24H [facility] Last Admin: 01/19/18 11:07 Dose: 40 mg Guaifenesin/Codeine Phosphate (Robitussin Ac 100mg-10mg*) 10 ml PO Q4H PRN PRN Reason: COUGH Heparin Sodium (Porcine) (Heparin Flush Port (Ivad)) 5 ml FLUSH 0600,1800 [facility] PRN Reason: Protocol Last Admin: 01/20/18 05:52 Dose: Not Given Trimethoprim/Sulfamethoxazole (580 mg/ Dextrose) 586.25 mls @ 234.5 mls/hr IVPB Q8HR [facility] Last Admin: 01/20/18 05:38 Dose: 234.5 mls/hr Levalbuterol HCl (Xopenex 1.25 Mg/0.5 Ml Neb.Stella*) 1.25 mg INH Q2H PRN PRN Reason: SHORTNESS OF BREATH Last Admin: 01/16/18 19:49 Dose: 1.25 mg Loperamide HCl (Imodium Cap*) 2 mg PO .SEE DIRECTIONS PRN PRN Reason: DIARRHEA Last Admin: 01/18/18 09:31 Dose: 2 mg Lorazepam (Ativan Tab(*)) 1 mg PO TID PRN PRN Reason: ANXIETY Last Admin: 01/19/18 21:53 Dose: 1 mg Metformin HCl (Glucophage*) 500 mg PO 0800,1700 [facility] Last Admin: 01/19/18 16:12 Dose: 500 mg Metoprolol Succinate (Toprol Xl Tab*) 100 mg PO QAM [facility] Last Admin: 01/19/18 08:33 Dose: 100 mg Multi-Ingredient Mouthwash/Gargle (Magic Mouth Was-Kevyn/Maal/Lido*) 5 ml SWISH SPIT QID [facility] Last Admin: 01/19/18 21:53 Dose: 5 ml Omeprazole (Prilosec Cap*) 20 mg PO DAILY@0730 [facility] Last Admin: 01/19/18 07:32 Dose: 20 mg Ondansetron HCl (Zofran Inj*) 4 mg IV Q4H PRN PRN Reason: NAUSEA/VOMITING Oxycodone/Acetaminophen (Percocet 5/325 Tab*) 1 tab PO Q4H PRN PRN Reason: Pain Last Admin: 01/20/18 05:50 Dose: 1 tab Prednisone (Deltasone Tab*) 40 mg PO DAILY [facility] Last Admin: 01/19/18 11:07 Dose: 40 mg Prochlorperazine (Compazine Tab*) 10 mg PO Q6H PRN PRN Reason: NAUSEA Last Admin: 01/19/18 19:31 Dose: 10 mg Senna (Senokot Tab*) 1 tab PO BID [facility] Last Admin: 01/19/18 21:52 Dose: Not Given Objective: [] Vital Signs Temp Pulse Resp BP Pulse Ox 97.9 F 78 24 127/68 96 01/20/18 07:34 01/20/18 07:34 01/20/18 07:34 01/20/18 07:34 01/20/18 07:34 3 L NC O2, sta 96%, HEENT: No thrush, NC, no JVD Good air movement, scattered crackles. 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 She has progressive SOB and hypoxia with ground glass air space disease. Differential is reaction to chemotherapy, infection (possible PCP), this is atypical for malignancy. Admission and placed on steroids and HD Bactrim. Has some improvement in hospital but cannot tell if from antibiotics or prednisone. Appreceate input from pulmonary, hold on bronchoscopy and continue Bactrim/Prednisone. Plan: []1. Respiratory Failure. Empiric therapy with Bactrim (03/15) and steriods. - Taper Prednisone to 30 mg - Chage Bactrim to po, 4 DS tabs TID - Zofran for nausea. 2. Hyponatremia. 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 - Fluid restriction and follow 3. Card. Echo done, called [facility] 4. Mouth soars. Using MMW 5. Increased Glucose on steroids with background insulin resistance - Metformin at 500 mg bid. 6. Plan discharge tomorrow if tolerates PO Bactrim
[2018-01-20] MEDS ORDERED: Sulfamethox/Trimethoprim DS 800/160* TAB PO SCH (09:00)
[2018-01-20] MEDS: Senna TAB PO SCH ×2 (09:09→20:51)
[2018-01-20] MEDS: metFORMIN* 500 MG TAB PO SCH ×2 (09:09→17:47)
[2018-01-20] MEDS: Metoprolol Succinate XL TAB* 100 MG PO SCH (09:09)
[2018-01-20] MEDS: Diltiazem CD CAP* 120 MG PO SCH (09:10)
[2018-01-20] MEDS: Omeprazole CAP* 20 MG PO SCH (09:10)
[2018-01-20] MEDS: predniSONE TAB* 20 MG PO SCH (09:11)
[2018-01-20] MEDS: Magic Mouth Was-BEN/MAAL/LIDO SWISH SPIT SCH ×4 (09:12→20:53)
[2018-01-20] MEDS: Enoxaparin(*) 40 MG/0.4 ML SYR SUBCUT SCH (12:23)
[2018-01-20] MEDS: Sulfamethox/Trimethoprim DS 800/160* TAB PO SCH ×2 (14:14→20:51)
--- NOTE | 2018-01-20 15:36 | PN ---
Progress Note - Progress Note Date of Service: 01/20/18 - Pulm f/u note Note: Pt seen and examined at bedside. Pt reports feeling better. Had ambulatory O2 testing, needs 2L at rest and 4L with exertion. denies cough, chest pain Active Medications Generic Name Dose Route Start Last Admin Trade Name Freq PRN Reason Stop Dose Admin Acetaminophen 650 mg 01/16/18 11:49 Tylenol Tab* PO Q4H PRN FEVER/PAIN Diltiazem HCl 120 mg 01/17/18 09:00 01/20/18 09:10 Cardizem Cd Cap* PO 120 mg DAILY [facility] Administration Docusate Sodium 100 mg 01/16/18 11:46 Colace Cap* PO BID PRN CONSTIPATION Enoxaparin Sodium 40 mg 01/16/18 12:00 01/20/18 12:23 Lovenox(*) SUBCUT 40 mg Q24H [facility] Administration Guaifenesin/Codeine Phosphate 10 ml 01/16/18 11:46 Robitussin Ac 100mg-10mg* PO Q4H PRN COUGH Heparin Sodium (Porcine) 5 ml 01/16/18 20:30 01/20/18 09:12 Heparin Flush Port (Ivad) FLUSH 5 ml 0600,1800 [facility] Administration Protocol Levalbuterol HCl 1.25 mg 01/16/18 11:53 01/16/18 19:49 Xopenex 1.25 Mg/0.5 Ml Neb.Stella* INH 1.25 mg Q2H PRN Administration SHORTNESS OF BREATH Loperamide HCl 2 mg 01/16/18 15:14 01/18/18 09:31 Imodium Cap* PO 2 mg .SEE DIRECTIONS PRN Administration DIARRHEA Lorazepam 1 mg 01/16/18 11:46 01/19/18 21:53 Ativan Tab(*) PO 1 mg TID PRN Administration ANXIETY Metformin HCl 500 mg 01/18/18 17:00 01/20/18 09:09 Glucophage* PO 500 mg 0800,1700 [facility] Administration Metoprolol Succinate 100 mg 01/17/18 09:00 01/20/18 09:09 Toprol Xl Tab* PO 100 mg QAM [facility] Administration Multi-Ingredient Mouthwash/Gargle 5 ml 01/16/18 13:00 01/20/18 14:14 Magic Mouth Was-Kevyn/Maal/Lido* SWISH SPIT 5 ml QID [facility] Administration Omeprazole 20 mg 01/17/18 07:30 01/20/18 09:10 Prilosec Cap* PO 20 mg DAILY@0730 [facility] Administration Ondansetron HCl 4 mg 01/16/18 11:49 Zofran Inj* IV Q4H PRN NAUSEA/VOMITING Oxycodone/Acetaminophen 1 tab 01/16/18 11:49 01/20/18 05:50 Percocet 5/325 Tab* PO 1 tab Q4H PRN Administration Pain Prednisone 30 mg 01/20/18 08:41 01/20/18 09:11 Deltasone Tab* PO 30 mg DAILY [facility] Administration Prochlorperazine 10 mg 01/16/18 11:46 01/19/18 19:31 Compazine Tab* PO 10 mg Q6H PRN Administration NAUSEA Senna 1 tab 01/16/18 21:00 01/20/18 09:09 Senokot Tab* PO 1 tab BID [facility] Administration Trimethoprim/Sulfamethoxazole 3 tab 01/20/18 14:00 01/20/18 14:14 Bactrim Ds 800/160 Tab* PO 3 tab TID [facility] Administration Vital Signs Temp Pulse Resp BP Pulse Ox 97.3 F 84 20 133/81 95 01/20/18 12:07 01/20/18 12:18 01/20/18 12:18 01/20/18 12:07 01/20/18 12:18 O/E: Pt in bed in NAD HEENT: PERRLA, mucus membranes mosit Lungs: Clear to auscultation b/l CVS: S1, S2+ Abd: Obese, BS+ Ext: No edema Neuro: No focal defecits Laboratory Results - last 24 hr 01/20/18 01/20/18 05:30 05:30 WBC 11.2 H RBC 3.60 L Hgb 11.0 L Hct 33 L MCV 93 MCH 31 MCHC 33 RDW 21 H Plt Count 461 H D MPV 8 Neut % (Auto) 73.6 Lymph % (Auto) 11.3 L [place] % (Auto) 15.0 H Eos % (Auto) 0 Baso % (Auto) 0.1 Absolute Neuts (auto) 8.2 H Absolute Lymphs (auto) 1.3 Absolute Monos (auto) 1.7 H Absolute Eos (auto) 0 Absolute Basos (auto) 0 Absolute Nucleated RBC 0 Nucleated RBC % 0.2 Sodium 125 L Potassium 3.7 Chloride 88 L Carbon Dioxide 28 Anion Gap 9 BUN 9 Creatinine 0.71 Est GFR ( Amer) 109.9 Est GFR (Non-Af Amer) 85.5 BUN/Creatinine Ratio 12.7 Glucose 116 H Calcium 10.4 H Magnesium 2.1 Total Bilirubin 0.30 AST 35 ALT 61 H Alkaline Phosphatase 77 Lactate Dehydrogenase 480 H Total Protein 6.2 L Albumin 3.6 Globulin 2.6 Albumin/Globulin Ratio 1.4 57 y o obese f with Uterine leiomyoma on chemo, admitted with hypoxia, SOB for 6 weeks Infectious versus inflammatory versus chemo induced Pt on Bactrim treatment with Bactrim and steroids Sx are improving, needing less FiO2 Will c/w Bactrim for total of 21 days Will do slow prednisone taper by lowering 5 mg weekly, will d/c on 30mg Will f/u in 2 weeks in pulm clinic No plan for bronchoscopy at this time
--- NOTE | 2018-01-20 15:42 | CONS ---
CONSULTATION REPORT: DATE OF CONSULT: 01/20/18 REQUESTING PHYSICIAN: Viet Atkinson MD. CONSULTING SERVICE: Infectious Disease. REASON FOR CONSULT: Hypoxemic respiratory failure, question pneumonia. IMPRESSION: 1. Acute hypoxemic respiratory failure, present on admission. 2. Cough, bilateral ground glass opacification on CT scan January 07. LDH of 500. Influenza PCR negative and she is on chemotherapy. The differential diagnosis does include Pneumocystis. Other infections including viral like adenovirus or human metapneumovirus are consideration, parainfluenza as well. Noninfectious including HERBICIDE SPRAYER as raised by Dr. Simpson. 3. 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 4. Type 2 diabetes. RECOMMENDATIONS: 1. Agree with prednisone and Bactrim, which I will decrease the dose of three double strength tablet three times a day just as it maybe hard for her to tolerate high dose. Her oxygen requirement has been decreasing since restarting corticosteroids and bactrim treatment. 2. Nasopharyngeal swab for human metapneumovirus and adenovirus PCR. HISTORY OF PRESENT ILLNESS: This is a 57-year-old woman with uterine leiomyosarcoma on chemotherapy admitted with shortness of breath. She has had it for about few months, which has been from [id number] steroid responsive. It does correspond with the duration of her chemotherapy. She has had worsening of her symptoms over the last week or two to the point that she is short of breath even at rest. She had had the CT scan on the as an outpatient that showed bilateral ground glass opacification, to my eye looks like mostly upper lobes. The study was negative for pulmonary embolus. There were some parenchymal nodules. Because of oxygen saturation in the 70s at the time of an echocardiogram, she was referred to the emergency department. She had x-ray that showed bilateral interstitial infiltrates read as vascular congestion. She had some diuresis and had her steroids restarted. She has had a cough, which has since resolved with those changes. Her shortness of breath is a little bit better at rest, and her oxygen requirement decreased from 8 L down to 2.5 L. White blood cell count 11,000. Her LDH is 499. ALT is slightly elevated at 69, down from 111 on admission, and influenza PCR is negative. Blood cultures are negative. PAST MEDICAL HISTORY: 1. Uterine leiomyosarcoma, on chemotherapy via left chest port. 2. Anxiety. 3 Type 2 diabetes. 4. Hypertension. 5. Obesity. 6. Osteoarthritis. 7. Status post partial tumor resection in July,. 8. Status post rotator cuff repair. MEDICATIONS: 1. Tylenol. 2. Diltiazem. 3. Docusate. 4. Enoxaparin. 5. Guaifenesin. 6. Heparin flushes through the port. 7. Albuterol inhaler. 8. Loperamide as needed. 9. Ativan as needed. 10. Metformin. 11. Magic Mouthwash. 12. Metoprolol. 13. Omeprazole. 14. Percocet. 15. Prednisone 30 mg a day. 16. Prochlorperazine. 17. Senna tablet. 18. Bactrim four tablets double strength by mouth 3 times a day. ALLERGIES: DOXYCYCLINE cause nausea and diarrhea. FAMILY HISTORY: Mother had breast cancer at 65. Sister with pancreatic cancer at 40. Father with prostate cancer at 80. SOCIAL HISTORY: She lives with her outside of [place]. She has had no sick contacts or travel. She is a nonsmoker. REVIEW OF SYSTEMS: A 14-point review of systems was negative except as noted above. PHYSICAL EXAM: Vital Signs: Temperature is 36.6, heart rate is 90, respiratory rate 20, blood pressure is 127/68, oxygen saturation 92% on 2 L, it was down to 74% on room air. General: She is awake, not in distress. Neurologic: She is oriented x3. Follows all commands. HEENT: There is no conjunctival hemorrhage. Oropharynx without lesions. Neck: Supple without nuchal rigidity or mass. Lymph Nodes: There is no inguinal, axillary, or epitrochlear lymphadenopathy. Heart: Regular rate and rhythm without murmurs, rubs, or gallops. There is a left chest port, which was accessed. Lungs: There are no wheeze or rales. There are decreased breath sounds in the lower lung bolivar bilaterally. Abdomen: Soft, nontender, and nondistended. There are bowel sounds present. Skin: There are no rashes or splinter hemorrhages. Musculoskeletal: There is no spinal tenderness to palpation or joint synovitis. DIAGNOSTIC STUDIES/LAB DATA: White blood cell count 11, hemoglobin 11, MCV 90, and platelets 461. Creatinine is 0.7. Please see impressions and recommendations outlined above, which I have discussed with Dr. Atkinson. Thanks for asking me to see Ms. Conner in consultation. [id number]/[facility] #: [id number] FAN
[2018-01-20] MEDS: Prochlorperazine TAB* 10 MG PO PRN (17:46)
[2018-01-20] MEDS: LORazepam TAB(*) 1 MG PO PRN ×2 (17:47→22:47)
[2018-01-21 07:08] LABS: EGFR Non-African American 88.3 (>60)
[2018-01-21] MEDS: Omeprazole CAP* 20 MG PO SCH (07:26)
[2018-01-21] MEDS: metFORMIN* 500 MG TAB PO SCH (07:26)
[2018-01-21 08:15] VITALS: BP 129/72
[2018-01-21] MEDS: Sulfamethox/Trimethoprim DS 800/160* TAB PO SCH (09:01)
[2018-01-21] MEDS: Diltiazem CD CAP* 120 MG PO SCH (09:01)
[2018-01-21] MEDS: Magic Mouth Was-BEN/MAAL/LIDO SWISH SPIT SCH (09:01)
[2018-01-21] MEDS: Metoprolol Succinate XL TAB* 100 MG PO SCH (09:01)
[2018-01-21] MEDS: Senna TAB PO SCH (09:01)
[2018-01-21] MEDS: predniSONE TAB* 20 MG PO SCH (09:01)
== END 2018-01-21 10:52 | disposition home or self-care (01) | DRG 177 ==
LOC: ED 09:22 → MEDTELE 11:49
PROVIDERS: ADMIT Internal Medicine Hematology & Oncology; ATTEND Internal Medicine Hematology & Oncology
DX: B59 Pneumocystosis (principal); J96.01 Acute respiratory failure with hypoxia; J84.116 Cryptogenic organizing pneumonia; E22.2 Syndrome of inappropriate secretion of antidiuretic hormone; Z68.41 Body mass index [BMI] 40.0-44.9, adult; C55 Malignant neoplasm of uterus, part unspecified; E66.01 Morbid (severe) obesity due to excess calories; F41.9 Anxiety disorder, unspecified; E11.9 Type 2 diabetes mellitus without complications; I10 Essential (primary) hypertension; M19.90 Unspecified osteoarthritis, unspecified site; Z79.84 Long term (current) use of oral hypoglycemic drugs; Z79.899 Other long term (current) drug therapy; Z88.8 Allergy status to other drugs, medicaments and biological substances; Z80.3 Family history of malignant neoplasm of breast; Z80.42 Family history of malignant neoplasm of prostate; Z80.0 Family history of malignant neoplasm of digestive organs
CPT/HCPCS: 36415; 71045; 71046; 80048; 80053; 82803; 83605; 83615; 83735; 83880; 84484; 85025; 85379; 85610; 85730; 87040; 87502; 87798; 93005; 93306; 94640; 94760; 99223; 99232; 99239; 99284; A9270-GY; C8929; J1642; J1650; J1940; J2405; J2930; J7512; Q0164

== ENCOUNTER 2018-03-07 09:32 | Observation (INO) | payer OTHER ==
[2018-03-07] MEDS ORDERED: Acetaminophen TAB* 325 MG PO PRN (09:56)
[2018-03-07] MEDS ORDERED: Albuterol HFA INHALER* 8 gm MDI INH PRN (10:23)
[2018-03-07] MEDS: LORazepam TAB(*) 0.5 MG PO PRN ×4 (10:37→23:46)
[2018-03-07] MEDS ORDERED: Dexamethasone IV* 20 MG in NS 0.9% 50 ML* 50 ML IVPB ONE ×2 (11:00)
[2018-03-07] MEDS ORDERED: Palonosetron* 0.25 MG in NS 0.9% 50 ML* 50 ML IVPB ONE ×4 (11:00)
[2018-03-07] MEDS: Prochlorperazine TAB* 10 MG PO PRN ×2 (11:14→18:44)
[2018-03-07] MEDS: Enoxaparin(*) 40 MG/0.4 ML SYR SUBCUT SCH (11:16)
[2018-03-07] MEDS ORDERED: NS 0.9% IVPB ONE ×4 (12:00)
[2018-03-07] MEDS ORDERED: [UNRECOGNIZED DRUG - OTHER] IVPB ONE ×4 (12:00)
[2018-03-07] MEDS: oxyCODONE TAB* 5 MG TAB PO PRN (16:36)
[2018-03-07] MEDS: oxyCODONE/Acetamin 5/325 MG* TAB PO SCH (18:39)
[2018-03-07] MEDS ORDERED: Ondansetron INJ* 2 MG/ML VIAL IV ONE (20:19)
[2018-03-07] MEDS: LORazepam TAB(*) 0.5 MG PO SCH ×2 (20:50→21:23)
[2018-03-07] MEDS: Docusate CAP* 100 MG PO SCH (20:50)
[2018-03-07] MEDS ORDERED: OLANzapine TAB* 10 MG PO SCH (21:00)
[2018-03-07] MEDS ORDERED: Mometasone 220 MCG MDI INH SCH (21:00)
[2018-03-07] MEDS ORDERED: Ondansetron ODT TAB* 4 MG SL ONE (22:00)
[2018-03-07] MEDS ORDERED: Scopolamine 1.5 mg* PATCH TRANSDERM SCH (23:30)
[2018-03-08] MEDS: Prochlorperazine TAB* 10 MG PO PRN ×3 (00:48→13:17)
[2018-03-08] MEDS: Ondansetron ODT TAB* 4 MG SL PRN ×2 (04:56→11:27)
[2018-03-08] MEDS: LORazepam TAB(*) 0.5 MG PO PRN ×3 (04:56→13:17)
[2018-03-08] MEDS: oxyCODONE TAB* 5 MG TAB PO PRN (05:07)
[2018-03-08 05:34] LABS: Hematocrit 34 % (35-47); Mean Corpuscular HGB Conc 35 g/dl (31-36); Mean Corpuscular Hemoglobin 34 pg (27-31); Mean Corpuscular Volume 98 fL (80-97); Mean Platelet Volume 6.9 um3 (7.4-10.4); Platelet Count 442 10^3/ul (150-450); Red Blood Count 3.49 10^6/ul (4.0-5.4); Red Cell Distribution Width 18 % (10.5-15); White Blood Count 22.2 10^3/ul (3.5-10.8)
[2018-03-08 05:53] LABS: EGFR Non-African American 99.9 (>60)
[2018-03-08 06:52] LABS: ABS Basophils 0.1 10^3/ul (0-0.2); ABS Eosinophils 0 10^3/ul (0-0.6); ABS Lymphocytes 1.5 10^3/ul (1.0-4.8); ABS Monocytes 1.5 10^3/ul (0-0.8); ABS Neutrophils 19.1 10^3/ul (1.5-7.7); ABS Nucleated RBC 0 10^3/ul; Eosinophil % 0 % (0-6); Lymphocyte % 6.6 % (25-47); Nucleated Red Blood Cells % 0
[2018-03-08] MEDS: Docusate CAP* 100 MG PO SCH (08:27)
[2018-03-08] MEDS: Enoxaparin(*) 40 MG/0.4 ML SYR SUBCUT SCH (08:38)
[2018-03-08] MEDS: oxyCODONE/Acetamin 5/325 MG* TAB PO SCH (08:41)
[2018-03-08] MEDS ORDERED: Metoprolol Succinate XL TAB* 100 MG PO SCH (09:00)
[2018-03-08] MEDS ORDERED: Furosemide TAB* 20 MG PO SCH (09:00)
[2018-03-08] MEDS ORDERED: Cetirizine* 10 MG TAB PO SCH (09:00)
[2018-03-08] MEDS ORDERED: Metoprolol Succinate XL TAB* 50 MG PO SCH (09:00)
[2018-03-08] MEDS ORDERED: Omeprazole CAP* 20 MG PO SCH (09:00)
[2018-03-08 13:43] VITALS: BP 125/76
--- NOTE | 2018-03-23 23:15 | DS ---
DISCHARGE SUMMARY: DATE OF ADMISSION: 03/07/18 DATE OF DISCHARGE: 03/08/18 DISCHARGE DIAGNOSES: 1. 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 2. Tachycardia. 3. Obesity. 4. Recent PCP pneumonia. HOSPITAL COURSE: The patient was brought into the hospital and received her first dose of trabectedin 1.5 mg per meter square over 24-hour period. She received Decadron aloxi and emend for emetic control. She received IV fluids. She seems to tolerate this chemotherapy well and was able to be discharged to home following completion of the chemotherapy. MEDICATIONS AT THE TIME OF DISCHARGE: Included: 1. Olanzapine 10 mg at h.s. 2. Zofran 8 mg sublingual q.6 hours p.r.n. 3. Compazine 10 mg q.6 hours p.r.n. 4. Percocet 1 tablet b.i.d., not to exceed 3 per day. 5. The patient was as asked to continue on her furosemide 20 mg in the morning. 6. Fluticasone 1 puff b.i.d. 7. Colace 2 pills per day as needed. 8. Cetirizine 10 mg daily. 9. Magnesium oxide 400 mg b.i.d. 10. Metoprolol 100 mg daily. 11. Spironolactone 25 mg daily. 12. Diltiazem 180 mg daily. 13. The patient was asked to stop her second dose of metoprolol 50 mg daily. [id number]/[facility] #: [id number] MTDD
== END 2018-03-08 16:10 | disposition home or self-care (01) ==
LOC: MEDTELE 10:19 → INTOOBSV 10:19
PROVIDERS: ADMIT Internal Medicine Hematology & Oncology; ATTEND Internal Medicine Hematology & Oncology
DX: Z51.11 Encounter for antineoplastic chemotherapy (principal); C54.1 Malignant neoplasm of endometrium; F41.9 Anxiety disorder, unspecified; E11.9 Type 2 diabetes mellitus without complications; I10 Essential (primary) hypertension; M19.91 Primary osteoarthritis, unspecified site; R00.0 Tachycardia, unspecified; E66.9 Obesity, unspecified
CPT/HCPCS: 36415; 80053; 85025; 94640; 94760; 96413; 99217; 99219; 99238; A9270-GY; G0378; J1100; J1650; J2405; J2469; J9352; Q0164

== ENCOUNTER 2018-03-12 16:33 | Inpatient (IN) | payer OTHER ==
[2018-03-12] MEDS ORDERED: oxyCODONE/Acetamin 5/325 MG* TAB PO PRN (16:48)
[2018-03-12] MEDS: PROCHLORPERAZINE INJ 5 MG/ML 2 ML VIAL IV SCH ×2 (18:30→22:17)
[2018-03-12] MEDS: Clotrimazole TROCHE* 10 MG TROCHE PO SCH ×2 (18:31→22:17)
[2018-03-12] MEDS: Enoxaparin(*) 30 MG/0.3 ML SYR SUBCUT SCH (18:42)
[2018-03-12] MEDS: NS 0.9% 1000 ML* 1,000 ML IV SCH (18:45)
[2018-03-12 19:45] LABS: EGFR Non-African American 31.4 (>60)
[2018-03-12] MEDS: Mometasone 220 MCG MDI INH SCH (20:40)
[2018-03-12] MEDS: Ondansetron INJ* 2 MG/ML VIAL IV PRN (21:01)
[2018-03-13] MEDS: NS 0.9% 1000 ML* 1,000 ML IV SCH ×3 (03:40→20:04)
[2018-03-13 04:45] LABS: EGFR Non-African American 27.8 (>60)
[2018-03-13 04:56] LABS: ABS Basophils 0.1 10^3/ul (0-0.2); ABS Eosinophils 0 10^3/ul (0-0.6); ABS Lymphocytes 0.5 10^3/ul (1.0-4.8); ABS Monocytes 0.1 10^3/ul (0-0.8); ABS Nucleated RBC 0 10^3/ul; Eosinophil % 0.1 % (0-6); Hematocrit 32 % (35-47); Hemoglobin 10.7 g/dl (12.0-16.0); Lymphocyte % 3.9 % (25-47); Mean Corpuscular HGB Conc 34 g/dl (31-36); Mean Corpuscular Hemoglobin 34 pg (27-31); Mean Corpuscular Volume 99 fL (80-97); Mean Platelet Volume 7.3 um3 (7.4-10.4); Nucleated Red Blood Cells % 0.1; Platelet Count 142 10^3/ul (150-450); Red Blood Count 3.19 10^6/ul (4.0-5.4); Red Cell Distribution Width 17 % (10.5-15); White Blood Count 12.6 10^3/ul (3.5-10.8)
[2018-03-13] MEDS: Clotrimazole TROCHE* 10 MG TROCHE PO SCH ×5 (05:16→21:26)
[2018-03-13] MEDS: PROCHLORPERAZINE INJ 5 MG/ML 2 ML VIAL IV SCH ×4 (05:16→22:53)
[2018-03-13] MEDS: Metoprolol Succinate XL TAB* 100 MG PO SCH (08:49)
[2018-03-13] MEDS: Ondansetron INJ* 2 MG/ML VIAL IV PRN ×3 (08:50→21:12)
[2018-03-13] MEDS: Diltiazem CD CAP* 180 MG PO SCH (08:50)
[2018-03-13] MEDS ORDERED: Senna TAB PO ONE (09:13)
[2018-03-13] MEDS: Polyethylene Glycol 3350* 17 GM PACKET PO SCH (09:53)
[2018-03-13] MEDS: Docusate CAP* 100 MG PO SCH ×2 (09:53→21:13)
[2018-03-13] MEDS: LORazepam INJ* 2 MG/ML 1 ML VIAL IV PUSH PRN ×2 (11:21→16:36)
--- NOTE | 2018-03-13 11:43 | PN ---
Progress Note - Progress Note Date of Service: 03/13/18 SOAP: Subjective: [57 yo female with leiomyosarcoma admitted with hyponatremia and intractable n/ v following C1 Trabectedin. She has been receiving IV fluids and started on scheduled Compazine with prn Zofran and Ativan. Still having intermittent n/v this am. She has not had a BM in several days, she reports increased bloating and abdominal pain than what is usual for her. She is feeling anxious this am. Chronic, mild SOB. Chronic tachycardia.] Objective: [ Clotrimazole (Mycelex Bethanie*) 10 mg PO FIVE TIMES DAILY [facility] Last Admin: 03/13/18 11:24 Dose: 10 mg Diltiazem HCl (Cardizem Cd Cap*) 180 mg PO DAILY [facility] Last Admin: 03/13/18 08:50 Dose: 180 mg Docusate Sodium (Colace Cap*) 100 mg PO BID [facility] Last Admin: 03/13/18 09:53 Dose: 100 mg Enoxaparin Sodium (Lovenox(*)) 30 mg SUBCUT Q24H [facility] Last Admin: 03/12/18 18:42 Dose: 30 mg Heparin Sodium (Porcine) (Heparin Flush Port (Ivad)) 5 ml FLUSH DAILY [facility] PRN Reason: Protocol Last Admin: 03/13/18 09:40 Dose: Not Given Sodium Chloride (Ns 0.9% 1000 Ml*) 1,000 mls @ 150 mls/hr IV PER RATE [facility] Last Admin: 03/13/18 03:40 Dose: 150 mls/hr Lorazepam (Ativan Inj*) 0.5 mg IV PUSH Q4H PRN PRN Reason: Anxiety or Nausea/vomiting Last Admin: 03/13/18 11:21 Dose: 0.5 mg Metoprolol Succinate (Toprol Xl Tab*) 100 mg PO DAILY [facility] Last Admin: 03/13/18 08:49 Dose: 100 mg Mometasone Furoate (Asmanex 220 Mcg Mdi *) 2 puff INH QPM [facility] Last Admin: 03/12/18 20:40 Dose: 2 puff Omeprazole (Prilosec Cap*) 20 mg PO BID [facility] Ondansetron HCl (Zofran Inj*) 4 mg IV Q4H PRN PRN Reason: nausea or vomiting Last Admin: 03/13/18 08:50 Dose: 4 mg Oxycodone/Acetaminophen (Percocet 5/325 Tab*) 1 tab PO 0730,1800 PRN PRN Reason: PAIN Polyethylene Glycol/Electrolytes (Miralax*) 17 gm PO DAILY [facility] Last Admin: 03/13/18 09:53 Dose: 17 gm Prochlorperazine Edisylate (Compazine Inj*) 10 mg IV Q6H [facility] Last Admin: 03/13/18 11:21 Dose: 10 mg Scopolamine (Transderm-Scop 1.5 Mg Patch*) 1 patch TRANSDERM Q72H [facility] Senna (Senokot Tab*) 1 tab PO BEDTIME [facility] Laboratory Results - last 24 hr 03/12/18 03/13/18 03/13/18 18:40 04:20 04:20 WBC 12.6 H RBC 3.19 L Hgb 10.7 L Hct 32 L MCV 99 H MCH 34 H MCHC 34 RDW 17 H Plt Count 142 L MPV 7.3 L Neut % (Auto) 94.9 H Lymph % (Auto) 3.9 L [place] % (Auto) 0.7 Eos % (Auto) 0.1 Baso % (Auto) 0.4 Absolute Neuts (auto) 12.0 H Absolute Lymphs (auto) 0.5 L Absolute Monos (auto) 0.1 Absolute Eos (auto) 0 Absolute Basos (auto) 0.1 Absolute Nucleated RBC 0 Nucleated RBC % 0.1 Sodium 118 L* 119 L* Potassium 4.6 4.8 Chloride 78 L 80 L Carbon Dioxide 31 29 Anion Gap 9 10 BUN 50 H 53 H Creatinine 1.69 H 1.88 H Est GFR ( Amer) 40.4 35.7 Est GFR (Non-Af Amer) 31.4 27.8 BUN/Creatinine Ratio 29.6 H 28.2 H Glucose 178 H 178 H Calcium 8.7 8.7 Magnesium 2.2 Total Bilirubin 2.10 H Direct Bilirubin 1.40 H Indirect Bilirubin 0.7 AST 75 H ALT 105 H Alkaline Phosphatase 157 H Total Creatine Kinase 59 Total Protein 5.2 L Albumin 2.5 L Globulin 2.7 Albumin/Globulin Ratio 0.9 L Vital Signs: Temp Pulse Resp BP Pulse Ox 97.6 F 112 18 113/75 97 03/13/18 07:47 03/13/18 07:47 03/13/18 11:21 04/19/18 07:47 03/13/18 07:47 Exam: Gen: Chronically ill appearing 57 yo female in NAD HEENT: mildly dry MM CV: tachycardic, RRR, no murmurs appreciated Resp: Limited exam, CTA Abd: somewhat distended but soft, diffuse TTP, hypoactive BS Ext: trace edema ] Assessment: [57 yo female with leiomyosarcoma s/p C1 Trabectedin (3rd line therapy) with intractable n/v, hyponatremia and transaminitis and PAULINO. Hyponatremia is quite severe, but likely due to severe volume loss.] Plan: [- Cont NS IVF - Repeat metabolic panel later today to ensure Na continues to climb - Monitor Tbili and transaminases - Add scopolamine patch for nausea control - Bowel meds for constipation as this is likely contributing to her persistent n /v - Monitor CBC for treatment related myelosuppression - No evidence for acute infectious process]
[2018-03-13] MEDS: Omeprazole CAP* 20 MG PO SCH ×2 (11:50→21:13)
[2018-03-13] MEDS ORDERED: Scopolamine 1.5 mg* PATCH TRANSDERM SCH (12:00)
[2018-03-13] MEDS ORDERED: Scopolamine PATCH Remove* 1 NOTE MISC PATCH OFF SCH (12:00)
[2018-03-13] MEDS: Enoxaparin(*) 30 MG/0.3 ML SYR SUBCUT SCH (16:35)
[2018-03-13 17:52] LABS: EGFR Non-African American 26.6 (>60)
[2018-03-13] MEDS ORDERED: NS 0.9% 500 ML* 500 ML IV ONE (18:00)
[2018-03-13] MEDS: Senna TAB PO SCH (21:13)
[2018-03-13] MEDS: Mometasone 220 MCG MDI INH SCH (21:17)
[2018-03-14] MEDS: Ondansetron INJ* 2 MG/ML VIAL IV PRN ×2 (01:35→05:21)
[2018-03-14] MEDS: LORazepam INJ* 2 MG/ML 1 ML VIAL IV PUSH PRN ×3 (01:36→15:33)
[2018-03-14] MEDS: NS 0.9% 1000 ML* 1,000 ML IV SCH ×4 (01:39→21:26)
[2018-03-14] MEDS: Clotrimazole TROCHE* 10 MG TROCHE PO SCH ×6 (05:21→21:18)
[2018-03-14] MEDS: PROCHLORPERAZINE INJ 5 MG/ML 2 ML VIAL IV SCH ×2 (05:21→14:27)
[2018-03-14 08:32] LABS: ABS Basophils 0 10^3/ul (0-0.2); ABS Eosinophils 0 10^3/ul (0-0.6); ABS Lymphocytes 0.3 10^3/ul (1.0-4.8); ABS Monocytes 0.1 10^3/ul (0-0.8); ABS Nucleated RBC 0 10^3/ul; Eosinophil % 0.2 % (0-6); Hematocrit 29 % (35-47); Hemoglobin 9.9 g/dl (12.0-16.0); Lymphocyte % 7.6 % (25-47); Mean Corpuscular HGB Conc 34 g/dl (31-36); Mean Corpuscular Hemoglobin 34 pg (27-31); Mean Corpuscular Volume 100 fL (80-97); Mean Platelet Volume 7.3 um3 (7.4-10.4); Nucleated Red Blood Cells % 0; Platelet Count 102 10^3/ul (150-450); Red Blood Count 2.89 10^6/ul (4.0-5.4); Red Cell Distribution Width 17 % (10.5-15); White Blood Count 4.5 10^3/ul (3.5-10.8)
[2018-03-14 08:55] LABS: EGFR Non-African American 24.2 (>60)
[2018-03-14] MEDS ORDERED: PROCHLORPERAZINE INJ 5 MG/ML 2 ML VIAL IV PRN (11:11)
--- NOTE | 2018-03-14 11:28 | RAD ---
HISTORY: Evaluate pelvic mass and 4 hydronephrosis COMPARISONS: CT dated February 24, 2018 TECHNIQUE: Multiple transverse and longitudinal ultrasound images were obtained of the abdomen using grayscale, color Doppler, and spectral Doppler imaging. FINDINGS: The study is technically limited LIVER: The liver measures 20.1 cm in long axis. There is no appreciable focal hepatic parenchymal mass. There is normal hepatopedal flow of the portal vein on Doppler imaging. BILIARY TREE: There is no intrahepatic or extrahepatic biliary dilatation. The common duct measures 0.6 cm. GALLBLADDER: The gallbladder is well-visualized. There is no cholelithiasis, gallbladder wall thickening, pericholecystic fluid, or sonographic Christie sign. PANCREAS: The pancreas is obscured by overlying bowel gas. SPLEEN: The spleen is not well visualized. RIGHT KIDNEY: Evaluation is technically limited. There is no appreciable hydronephrosis or nephrolithiasis. The right kidney measures 12.1 x 5.9 x 4.3 cm. LEFT KIDNEY: Evaluation is limited. There is no appreciable hydronephrosis or nephrolithiasis. The left kidney measures 12.1 x 5.9 x 4.3 cm. AORTA AND IVC: The vessels are not well visualized. FLUID: There is a moderate amount ascites. OTHER FINDINGS: There are multiple heterogeneously hypoechoic, centrally necrotic masses throughout the peritoneal cavity corresponding to the peritoneal and plans noted on the previous CT examination. The largest is noted within the pelvis measuring approximately 22 cm in greatest dimension, though evaluation is technically limited. IMPRESSION: 1. ASCITES. 2. AGAIN NOTED ARE MULTIPLE PERITONEAL MASSES CONSISTENT WITH THE PERITONEAL IMPLANTS DESCRIBED ON THE PREVIOUS CT EXAMINATION. 3. NO APPRECIABLE HYDRONEPHROSIS OR NEPHROLITHIASIS.
[2018-03-14] MEDS: Omeprazole CAP* 20 MG PO SCH ×2 (12:27→21:17)
[2018-03-14] MEDS: Diltiazem CD CAP* 180 MG PO SCH (12:27)
[2018-03-14] MEDS: Metoprolol Succinate XL TAB* 100 MG PO SCH (12:27)
[2018-03-14] MEDS: Dexamethasone IV* 4 MG/ML 1 ML (4 MG) IV SLOW PU SCH ×2 (12:27→23:53)
[2018-03-14] MEDS: Ondansetron INJ* 2 MG/ML VIAL IV SCH ×2 (12:27→21:18)
[2018-03-14] MEDS: Polyethylene Glycol 3350* 17 GM PACKET PO SCH (12:28)
[2018-03-14] MEDS: Bisacodyl SUPP* 10 MG SUPP PR SCH (12:28)
[2018-03-14] MEDS: Docusate CAP* 100 MG PO SCH ×2 (12:28→21:18)
[2018-03-14] MEDS: Enoxaparin(*) 30 MG/0.3 ML SYR SUBCUT SCH (17:25)
[2018-03-14] MEDS: Mometasone 220 MCG MDI INH SCH ×2 (21:06→21:28)
[2018-03-14] MEDS: Senna TAB PO SCH (21:17)
[2018-03-15] MEDS: NS 0.9% 1000 ML* 1,000 ML IV SCH (03:53)
[2018-03-15] MEDS: Ondansetron INJ* 2 MG/ML VIAL IV SCH (03:55)
[2018-03-15] MEDS: Clotrimazole TROCHE* 10 MG TROCHE PO SCH ×2 (05:49→09:46)
[2018-03-15 06:14] LABS: ABS Neutrophils 0.9 10^3/ul (1.5-7.7); Hematocrit 26 % (35-47); Hemoglobin 8.8 g/dl (12.0-16.0); Mean Corpuscular HGB Conc 35 g/dl (31-36); Mean Corpuscular Hemoglobin 35 pg (27-31); Mean Corpuscular Volume 101 fL (80-97); Mean Platelet Volume 7.2 um3 (7.4-10.4); Platelet Count 81 10^3/ul (150-450); Red Blood Count 2.53 10^6/ul (4.0-5.4); Red Cell Distribution Width 16 % (10.5-15); White Blood Count 1.3 10^3/ul (3.5-10.8)
[2018-03-15 06:25] LABS: EGFR Non-African American 30.4 (>60)
[2018-03-15 06:54] LABS: ABS Basophils 0 10^3/ul (0-0.2); ABS Eosinophils 0 10^3/ul (0-0.6); ABS Lymphocytes 0.3 10^3/ul (1.0-4.8); ABS Monocytes 0.1 10^3/ul (0-0.8); ABS Nucleated RBC 0 10^3/ul; Eosinophil % 0 % (0-6); Lymphocyte % 21.9 % (25-47); Nucleated Red Blood Cells % 0.1
--- NOTE | 2018-03-15 07:41 | DS ---
- Discharge Summary ADMIT DATE: 03/12/18 DISCHARGE DATE: 03/15/18 DISCHARGE DIAGNOSIS: 1. Acute renal failure, prerenal azotemia from nausea and vomiting 2. severe hyponatremia,improving 3. acute liver failure, medication induced 4. metastatic uterine leiomyosarcoma, on palliative trabectedin 5. chemotherapy induced pancytopenia DISCHARGE MEDICATIONS: Home Medications Medication Instructions Recorded Confirmed Type Cetirizine* [ZyrTEC 10 MG TAB*] 10 mg PO DAILY 01/16/18 03/12/18 History Docusate CAP* [Colace Cap*] 100 mg PO BID PRN 01/16/18 03/12/18 History Fluticasone HFA 220 mcg(NF) 1 puff INH BID 01/16/18 03/12/18 History [Flovent Hfa 220 Mcg(NF)] Magnesium Oxide TAB* [MagOx 400 400 mg PO BID 01/16/18 03/12/18 History TAB*] Diltiazem CD CAP* [Cardizem CD 180 mg PO DAILY 03/07/18 03/12/18 History CAP*] Metoprolol Succinate XL TAB* 100 mg PO DAILY 03/07/18 03/12/18 History [Toprol XL TAB*] OLANzapine TAB* [Zyprexa 10 MG 10 mg PO BEDTIME tab 03/08/18 03/12/18 Rx TAB*] Ondansetron ODT TAB* [Zofran 4 MG 8 mg SL Q6H PRN tab 03/08/18 03/12/18 Rx Odt TAB*] Prochlorperazine TAB* [Compazine 10 mg PO Q6H PRN tab 03/08/18 03/12/18 Rx Tab*] oxyCODONE/Acetamin 5/325 MG* 1 tab PO 0730,1800 PRN tab MDD 3 03/08/18 Rx [Percocet 5/325 TAB*] Clotrimazole BETHANIE* [Mycelex 10 mg PO FIVE TIMES DAILY #50 03/15/18 Rx Bethanie*] bethanie Docusate CAP* [Colace Cap*] 100 mg PO BID cap 03/15/18 Rx Omeprazole CAP* [Prilosec CAP* 20 20 mg PO BID cap. 03/15/18 Rx MG] Polyethylene Glycol 3350* 17 gm PO DAILY packet 03/15/18 Rx [Miralax*] Scopolamine 1.5 mg* PATCH* 1 patch TRANSDERM Q72H #10 patch 03/15/18 Rx [Transderm-Scop 1.5 mg Patch*] Senna TAB* [Senokot TAB*] 1 tab PO BEDTIME tab 03/15/18 Rx HOLD LASIX AND SPIRONOLACTONE DISCHARGE FOLLOW UP: Dr. Atkinson's main office Sunday 03/18 at 10 am for labs/nurse visit HOSPITAL COURSE: Please see full admit H+P, briefly, 57 yo F sp cycle 1 of palliative trabectedin , presenting with intractable nausea and vomiting, acute on chronic severe hyponatremia, acute renal failure and new acute liver failure, all felt to be related to her new therapy. She was slow to improve initially related to ongoing nausea and vomiting. Her abdominal US showed a normal liver. She was aggressively treated with antiemetics and fluids and is markedly improved, with no nausea in ~18 hours, and able to tolerate POs. Her Na is up to 123, which is close to her baseline of 125. Her renal function is improving, with a creatinine of 1.74. She is confident that she can go home and take adequate oral intake. She did contract to come back if vomiting resumed, and to come to the office on Saturday for re-evaluation of labs. She will hold her diuretics until that visit. Her bilirubin was still climbing at discharge but was under 3. This will likely be a dose limiting side effect. She was expectedly neutropenic on discharge but afebrile and given neutropenic precautions. >30 mins spent, >50% in face to face counseling
[2018-03-15] MEDS: Bisacodyl SUPP* 10 MG SUPP PR SCH (09:43)
[2018-03-15] MEDS: Docusate CAP* 100 MG PO SCH (09:44)
[2018-03-15] MEDS: Polyethylene Glycol 3350* 17 GM PACKET PO SCH (09:45)
[2018-03-15] MEDS: Metoprolol Succinate XL TAB* 100 MG PO SCH (09:46)
[2018-03-15] MEDS: Diltiazem CD CAP* 180 MG PO SCH (09:46)
[2018-03-15] MEDS: Omeprazole CAP* 20 MG PO SCH (09:46)
[2018-03-15 09:47] VITALS: BP 127/72
== END 2018-03-15 11:36 | disposition home or self-care (01) | DRG 682 ==
LOC: MEDTELE 17:10
PROVIDERS: ADMIT Internal Medicine Hematology & Oncology; ATTEND Internal Medicine Hematology & Oncology
DX: N17.9 Acute kidney failure, unspecified (principal); D61.811 Other drug-induced pancytopenia; E87.1 Hypo-osmolality and hyponatremia; Z68.42 Body mass index [BMI] 45.0-49.9, adult; K71.10 Toxic liver disease with hepatic necrosis, without coma; T45.1X5A Adverse effect of antineoplastic and immunosuppressive drugs, initial encounter; C55 Malignant neoplasm of uterus, part unspecified; F41.9 Anxiety disorder, unspecified; E11.9 Type 2 diabetes mellitus without complications; I10 Essential (primary) hypertension; M19.90 Unspecified osteoarthritis, unspecified site; B37.9 Candidiasis, unspecified; K59.00 Constipation, unspecified; R11.2 Nausea with vomiting, unspecified; E66.9 Obesity, unspecified; R74.0 Nonspecific elevation of levels of transaminase and lactic acid dehydrogenase [LDH]; Y92.009 Unspecified place in unspecified non-institutional (private) residence as the place of occurrence of the external cause; Z88.8 Allergy status to other drugs, medicaments and biological substances; Z79.1 Long term (current) use of non-steroidal anti-inflammatories (NSAID); Z79.891 Long term (current) use of opiate analgesic; Z79.899 Other long term (current) drug therapy; Z87.891 Personal history of nicotine dependence; Z80.3 Family history of malignant neoplasm of breast; Z80.42 Family history of malignant neoplasm of prostate; Z80.0 Family history of malignant neoplasm of digestive organs
CPT/HCPCS: 36415; 76700; 80048; 80053; 82248; 82550; 83735; 85025; 85060; 94640; 94667; 94760; 96361; 96365; 96375; 99215; 99223; 99233; 99239; A9270-GY; G0463; J0780; J1100; J1642; J1650; J2060; J2405; J2997

== ENCOUNTER 2018-03-15 16:12 | Inpatient (IN) | payer OTHER ==
[2018-03-15 18:45] LABS: INR 1.01 (0.77-1.02)
[2018-03-15 18:49] LABS: ABS Basophils 0 10^3/ul (0-0.2); ABS Eosinophils 0 10^3/ul (0-0.6); ABS Lymphocytes 0.5 10^3/ul (1.0-4.8); ABS Monocytes 0.2 10^3/ul (0-0.8); ABS Nucleated RBC 0 10^3/ul; Eosinophil % 0.2 % (0-6); Hematocrit 27 % (35-47); Hemoglobin 9.2 g/dl (12.0-16.0); Mean Corpuscular HGB Conc 34 g/dl (31-36); Mean Corpuscular Hemoglobin 34 pg (27-31); Mean Corpuscular Volume 100 fL (80-97); Mean Platelet Volume 7.6 um3 (7.4-10.4); Nucleated Red Blood Cells % 0.2; Platelet Count 96 10^3/ul (150-450); Red Blood Count 2.68 10^6/ul (4.0-5.4); Red Cell Distribution Width 16 % (10.5-15); White Blood Count 1.3 10^3/ul (3.5-10.8)
--- NOTE | 2018-03-15 19:13 | RAD ---
Indication: Shortness of breath. Single frontal view of the chest performed at 1722 hours was reviewed. Comparison is made with previous exam dated February 13, 2018. Cardiomegaly is noted. Central line is in place. No alveolar consolidation is noted. IMPRESSION: NO ACTIVE CARDIOPULMONARY DISEASE IS NOTED.
[2018-03-15] MEDS ORDERED: LORazepam TAB(*) 1 MG PO ONE (19:43)
[2018-03-15] MEDS ORDERED: Docusate CAP* 100 MG PO PRN (20:37)
[2018-03-15] MEDS ORDERED: Prochlorperazine TAB* 10 MG PO PRN (20:37)
[2018-03-15] MEDS ORDERED: Fluticasone HFA 220 mcg(NF) MDI INH SCH (21:00)
[2018-03-15] MEDS: Omeprazole CAP* 20 MG PO SCH (22:06)
[2018-03-15] MEDS: Heparin VIAL(*) 5000 UNITS/ML VIAL (FIVE THOUSAND) SUBCUT SCH (22:06)
[2018-03-15] MEDS: Senna TAB PO SCH (22:06)
[2018-03-15] MEDS: Magnesium Oxide TAB* 400 MG PO SCH (22:06)
[2018-03-15] MEDS: Docusate CAP* 100 MG PO SCH (22:06)
[2018-03-15] MEDS: Scopolamine 1.5 mg* PATCH TRANSDERM SCH (22:07)
[2018-03-15] MEDS: OLANzapine TAB* 10 MG PO SCH (22:07)
[2018-03-15] MEDS: Clotrimazole TROCHE* 10 MG TROCHE PO SCH (22:08)
[2018-03-15 22:12] LABS: ABS Neutrophils 0.7 10^3/ul (1.5-7.7)
[2018-03-15] MEDS: NS 0.9% 1000 ML* 1,000 ML IV SCH (22:14)
--- NOTE | 2018-03-15 23:22 | HP ---
HISTORY AND PHYSICAL: DATE OF ADMISSION: 03/15/18 TIME OF ADMISSION: 8:45 p.m. ONCOLOGIST: Dr. Atkinson. HISTORY OF PRESENT ILLNESS: This is a 57-year-old female with a history of metastatic uterine leiomyosarcoma receiving palliative chemotherapy who presents today after being discharged this morning back to the emergency department. She was admitted from 03/12/18 to 03/15/18 for nausea and vomiting and was found to have PAULINO, hyponatremia, and trabectedin related hepatotoxicity. She was discharged this morning to home with her , Dick, however, when they got home they quickly realized that she was too weak for Dick to manage by himself. Dick is not currently in the room and Gayatri provides me this history. She states that prior to her admission this week, she was able to ambulate to the bathroom "barely" and today she was hardly able to walk a few steps before becoming too weak. She says that the nausea, vomiting, and constipation were much better, however, her was unable to help her get around the house, so they decided to come back to the emergency department. Additionally, her works Saturday through Saturday, so they knew that they would need more help especially starting this week. PAST MEDICAL HISTORY: 1. Uterine leiomyosarcoma, currently undergoing chemotherapy with palliative intent. 2. Type 2 diabetes. 3. Hypertension. 4. Anxiety. Regarding her oncologic history, she was diagnosed in January 2017, underwent debulking surgery and has since undergone 3 different chemotherapy regimens, most recently is on trabectedin with palliative intent which based on her admission over the past 3 days may now be limited by drug toxicity. She is currently scheduled to see Dr. Atkinson on Saturday to discuss further treatment. FAMILY HISTORY: She has a significant family history of malignancy including breast cancer in her mom, pancreatic cancer in her sister and prostate cancer in her father. SOCIAL HISTORY: She lives in [facility] with her , Dick, who is her healthcare proxy. She is a former smoker remotely. REVIEW OF SYSTEMS: Nausea, vomiting, and constipation are improved. She has been able to drink some fluids today. She denies any abdominal pain, chest pain , shortness of breath, fevers, chills, melena, hematochezia. She notes leg swelling and leg discoloration that are at baseline for her and unchanged. She denies shortness of breath, orthopnea or weight change. PHYSICAL EXAMINATION GENERAL: Alert, ill appearing obese female, in no acute distress. VITAL SIGNS: Blood pressure 151/81, pulse ox 97% on 2 L, respiratory rate 20, heart rate 97, temperature 97.1. HEENT: Pupils 4 mm bilaterally and equally reactive to light. No nystagmus. Very dry mucosa. No pharyngeal exudate or erythema. Few white palatal plaques. NECK: No cervical or supraclavicular lymphadenopathy. LUNGS: Decreased breath sounds in the bases bilaterally. CHEST: A chemo port is located in the left chest wall. She is in a regular rate and rhythm with no murmurs. PMI is nondisplaced. ABDOMEN: Distended with healed midline laparotomy incision. No fluid wave. Liver nonpalpable. Nontender diffusely. Bowel sounds hypoactive, but present in all 4 quadrants. No rebound. EXTREMITIES: 2+ lower extremity edema to the thighs. Hyperpigmentation in bilateral lower extremities. Strength is 4/5 in both lower extremities. Sensation is intact. Proprioception is intact. NEUROLOGIC: Oriented x3. Strength and sensation and coordination are intact with the exception of the minimally decreased hip strength in bilateral lower extremities. LABORATORY DATA: White blood cell 1.3, hemoglobin 9.2, platelets 96,000, absolute neutrophil count 700. INR 1.01. PTT 27.9. Sodium 122. Sodium was 117 on 03/12/18 and baseline sodium appears to be approximately 125. Potassium 4.1, chloride 89, BUN 52, creatinine 1.62, creatinine was 1.76 on last admission and her baseline appears to be 0.6, glucose 145. Total bilirubin 2.4 , ALT 70, AST 54, alk phos 181. DIAGNOSTIC STUDIES: Chest x-ray, no active cardiopulmonary disease. Abdominal ultrasound from 03/14/18: Ascites, multiple peritoneal masses consistent with the peritoneal implants described on previous CT and no hydronephrosis or nephrolithiasis. Chest, abdomen and pelvis CT from 02/24/18, interval increase in size and number of the left-sided pulmonary nodules consistent with pulmonary metastases. Interval development in the size and number of peritoneal soft tissue implants, the largest now measuring 9.6 x 16.1 cm in the axial plane accompanied by scattered peritoneal ascites. The constellation of findings is consistent with worsening metastatic disease. ASSESSMENT AND PLAN: This is a 57-year-old female with progressive metastatic uterine leiomyosarcoma who is currently undergoing trabectedin chemotherapy with palliative intent who was admitted from 03/12/18 until this morning for nausea, vomiting, who presents back to the emergency department with weakness. 1. Weakness. This appears to have been a subacute decline as she reports she has only been able to walk very short distances over the past several months with great help from her and after her recent admission, is only able to walk a few steps. I suspect that she has been declining for some time and this recent 3-day admission led to more acute decline in her functional capacity. She has no focal neurological findings and her symptoms have improved since she was admitted. Of note, her renal function remains above baseline and her sodium below baseline, so she may achieve some improvement in her strength with ongoing improvement in these 2 numbers, however, it is possible that she simply needs rehab prior to returning home. I do not see any new change from a laboratory standpoint since this morning. However, I will continue to treat her renal failure and hyponatremia and encourage p.o. intake which may also help her strength. She has no evidence of infection; however, this should certainly be considered given her immunosuppression. I am consulting physical therapy for consideration of short- term rehab, which she is agreeable to. 2. Acute renal failure. Again, this was present on her admission on the , and an ultrasound and CT performed on this admission over the past 3 days ruled out hydronephrosis, however, she does appear volume deplete still on my exam, so I am continuing IV fluid resuscitation. This is likely due to chemotherapy related nausea and vomiting versus chemotherapy side effect directly. 3. Hepatotoxicity as noted in Dr. Landry's discharge summary from this morning. This will likely be medication limiting for her chemotherapy moving forward and is thought to be a result of her trabectedin that she received last week. 4. Hyponatremia. She is hypovolemic and will benefit from continued volume resuscitation, however, she is noted to be hyponatremic at baseline, so there is a chronic component to this and may be paraneoplastic in nature. I will continue normal saline and recheck in the morning. 5. Chronic hypoxic respiratory failure. This has been present since a December admission during which she was found to have bilateral pneumonia with concern for PCP pneumonia, which was treated empirically. Given her immunosuppression, she remains on 2 L of oxygen since that time. 6. Hypertension. Continue metoprolol and Cardizem as per her discharge from this morning. 7. Metastatic uterine leiomyosarcoma. She is scheduled to see Dr. Atkinson this week for treatment discussion and options now that she has completed third line chemotherapy. 8. Chemo-associated nausea and vomiting. Continue Zofran and Compazine p.r.n. as per her discharge summary from this morning. 9. Chemotherapy associated pancytopenia noted. 10. Full code. DISPOSITION: Admitted to the medical service with PT consultation. [id number]/[facility] #: [id number] MTDD
[2018-03-16] MEDS ORDERED: Albuterol 2.5 MG/3 ML NEB.SOL* (0.083%) INH PRN (00:08)
[2018-03-16] MEDS ORDERED: Albuterol HFA INHALER* 8 gm MDI INH PRN (01:48)
--- NOTE | 2018-03-16 03:29 | ED ---
Scott Wang Jennifer, scribed for Christian Gomez MD on 03/15/18 at 1737 . Shortness of Breath - HPI Summary HPI Summary: The patient is a 57 year old female who presents with shortness of breath after being discharged this morning. The patient had been in [facility] for the past three days due to chemotherapy for stage four uterine cancer. The patient states that she went home and became increasingly short of breath and was unable to walk due to weakness. The patient is now unable to sit up, stand, or walk, and is completely dependent on others for her care. She additionally complains of inability to keep food down, a little agitation, and constipation that is better now. The patient denies chest pain, cough, abdominal pain, fever, and chills. She normally uses 2L of oxygen at home. - History of Current Complaint Chief Complaint: EDShortnessOfBreath Time Seen by Provider: 03/15/18 17:23 Hx Obtained From: Patient Onset/Duration: Gradual Onset, Lasting Hours, Still Present, Worse Since Timing: Constant Current Severity: Moderate Dyspnea At: Rest Aggrevating Factors: Movement, Deep Breaths, Other - Sitting upright, standing Alleviating Factors: Nothing Associated Signs & Symptoms: Negative - Fever, chills, chest pain, cough, abdominal pain - Allergy/Home Medications Allergies/Adverse Reactions: Allergies Allergy/AdvReac Type Severity Reaction Status Date / Time doxycycline AdvReac Stomach Verified 02/24/18 11:17 Cramps PMH/Surg Hx/FS Hx/Imm Hx Endocrine/Hematology History: Reports: Hx Anemia Denies: Hx Diabetes, Hx Thyroid Disease Cardiovascular History: Reports: Hx Congestive Heart Failure, Hx Hypercholesterolemia, Hx Hypertension - ON MEDS, Other Cardiovascular Problems/ Disorders - tachycardia Denies: Hx Pacemaker/ICD Respiratory History: Reports: Hx Asthma Denies: Hx Chronic Obstructive Pulmonary Disease (COPD), Hx Pulmonary Embolism GI History: Denies: Hx Ulcer History: Reports: Other Problems/Disorders - Yearly UTI's Denies: Hx Dialysis, Hx Renal Disease Musculoskeletal History: Reports: Hx Arthritis, Hx Orthopedic Injury Sensory History: Denies: Hx Contacts or Glasses, Hx Hearing Aid Opthamlomology History: Denies: Hx Contacts or Glasses Neurological History: Denies: Hx Transient Ischemic Attacks (TIA) Psychiatric History: Reports: Hx Anxiety, Hx Depression, Hx Panic Disorder - Cancer History Cancer Type, Location and Year: UTERINE CA Hx Chemotherapy: Yes - Surgical History Surgery Procedure, Year, and Place: 2010 - Right Rotator Cuff Surgery. 1982 - RIGHT knee surgery. trigger thumb-LEFT, RIGHT SHOULDER SURGERY, PARTIAL REMOVAL SMALL INTESTINES, PARTIAL BLADDER AND HYSTERECTOMY Hx Anesthesia Reactions: No - Immunization History Date of Tetanus Vaccine: up to date Date of Influenza Vaccine: 2014 Infectious Disease History: No Infectious Disease History: Denies: Hx Clostridium Difficile, Hx Hepatitis, Hx Human Immunodeficiency Virus (HIV), Hx of Known/Suspected MRSA, Hx Shingles, Hx Tuberculosis, Hx Known/ Suspected VRE, Hx Known/Suspected VRSA, History Other Infectious Disease, Traveled Outside the [place] in Last 30 Days - Family History Known Family History: Positive: Hypertension - Social History Alcohol Use: Rare Alcohol Amount: lots Hx Substance Use: No Substance Use Type: Reports: None Hx Tobacco Use: No Smoking Status (MU): Former Smoker Amount Used/How Often: < 1 ppd Length of Time of Smoking/Using Tobacco: 10 years Have You Smoked in the Last Year: No Review of Systems Positive: Other - Can't sit up, stand, walk. Negative: Fever, Chills Positive: Shortness Of Breath. Negative: Cough Positive: Vomiting, Other - Constipation. Negative: Abdominal Pain Positive: Weakness Positive: Other - Agitated All Other Systems Reviewed And Are Negative: Yes Physical Exam - Summary Physical Exam Summary: GENERAL: ~Patient is a well developed and nourished F who is lying comfortable in the stretcher. ~Patient is not in any acute respiratory distress. HEAD AND FACE: Normocephalic EYES: PERRLA, EOMI x 2. EARS: Hearing grossly intact. MOUTH: Oropharynx within normal limits. NECK: Supple, trachea is midline, no adenopathy, no JVD, no carotid bruit. CHEST: Symmetric, no tenderness at palpation LUNGS: Clear to auscultation anteriorly - limited because the patient could not sit forward. No wheezing or crackles. CVS: Regular rate and rhythm, S1 and S2 present, no murmurs or gallops appreciated. ABDOMEN: The abdomen is distended, nontender. There is a big surgical scar intact on the abdomen. Bowel sounds are normal. No abdominal abnormal pulsations. EXTREMITIES: Full ROM in all major joints, 2+ pitting edema bilaterally, no cyanosis or clubbing. NEURO: Alert and oriented x 3. No acute neurological deficits. Speech is normal and follows commands. SKIN: Dry and warm Triage Information Reviewed: Yes Vital Signs On Initial Exam: Initial Vitals Temp Pulse Resp BP Pulse Ox 97.1 F 96 21 125/81 100 03/15/18 16:32 18 16:32 18 16:32 18 16:32 03/15/18 16:32 Vital Signs Reviewed: Yes Diagnostics - Vital Signs Vital Signs Temp Pulse Resp BP Pulse Ox 03/15/18 16:32 97.1 F 96 21 125/81 100 - Laboratory Lab Results: Lab Results 03/15/18 03/15/18 03/15/18 Range/Units 18:20 18:20 18:20 WBC 1.3 L (3.5-10.8) 10^3/ul RBC 2.68 L (4.0-5.4) 10^6/ul Hgb 9.2 L (12.0-16.0) g/dl Hct 27 L (35-47) % MCV 100 H (80-97) fL MCH 34 H (27-31) pg MCHC 34 (31-36) g/dl RDW 16 H (10.5-15) % Plt Count 96 L D (150-450) 10^3/ul MPV 7.6 (7.4-10.4) um3 Neut % (Auto) 52.2 (38-83) % Lymph % (Auto) 34.0 (25-47) % [place] % (Auto) 12.7 H (0-7) % Eos % (Auto) 0.2 (0-6) % Baso % (Auto) 0.9 (0-2) % Absolute Neuts (auto) 0.7 L* (1.5-7.7) 10^3/ul Absolute Lymphs (auto) 0.5 L (1.0-4.8) 10^3/ul Absolute Monos (auto) 0.2 (0-0.8) 10^3/ul Absolute Eos (auto) 0 (0-0.6) 10^3/ul Absolute Basos (auto) 0 (0-0.2) 10^3/ul Absolute Nucleated RBC 0 10^3/ul Nucleated RBC % 0.2 INR (Anticoag Therapy) 1.01 (0.77-1.02) APTT 27.9 (26.0-36.3) seconds Sodium (139-145) mmol/L Potassium (3.5-5.0) mmol/L Chloride (101-111) mmol/L Carbon Dioxide (22-32) mmol/L Anion Gap (2-11) mmol/L BUN (6-24) mg/dL Creatinine (0.51-0.95) mg/dL Est GFR ( Amer) (>60) Est GFR (Non-Af Amer) (>60) BUN/Creatinine Ratio (8-20) Glucose (70-100) mg/dL Lactic Acid (0.5-2.0) mmol/L Calcium (8.6-10.3) mg/dL Total Bilirubin (0.2-1.0) mg/dL AST (13-39) U/L ALT (7-52) U/L Alkaline Phosphatase (34-104) U/L Troponin I (<0.04) ng/mL B-Natriuretic Peptide 155 H ( - 100) pg/mL Total Protein (6.4-8.9) g/dL Albumin (3.2-5.2) g/dL Globulin (2-4) g/dL Albumin/Globulin Ratio (1-3) 03/15/18 03/15/18 Range/Units 18:20 18:20 WBC (3.5-10.8) 10^3/ul RBC (4.0-5.4) 10^6/ul Hgb (12.0-16.0) g/dl Hct (35-47) % MCV (80-97) fL MCH (27-31) pg MCHC (31-36) g/dl RDW (10.5-15) % Plt Count (150-450) 10^3/ul MPV (7.4-10.4) um3 Neut % (Auto) (38-83) % Lymph % (Auto) (25-47) % [place] % (Auto) (0-7) % Eos % (Auto) (0-6) % Baso % (Auto) (0-2) % Absolute Neuts (auto) (1.5-7.7) 10^3/ul Absolute Lymphs (auto) (1.0-4.8) 10^3/ul Absolute Monos (auto) (0-0.8) 10^3/ul Absolute Eos (auto) (0-0.6) 10^3/ul Absolute Basos (auto) (0-0.2) 10^3/ul Absolute Nucleated RBC 10^3/ul Nucleated RBC % INR (Anticoag Therapy) (0.77-1.02) APTT (26.0-36.3) seconds Sodium 122 L (139-145) mmol/L Potassium 4.1 (3.5-5.0) mmol/L Chloride 89 L (101-111) mmol/L Carbon Dioxide 25 (22-32) mmol/L Anion Gap 8 (2-11) mmol/L BUN 52 H (6-24) mg/dL Creatinine 1.62 H (0.51-0.95) mg/dL Est GFR ( Amer) 42.4 (>60) Est GFR (Non-Af Amer) 33.0 (>60) BUN/Creatinine Ratio 32.1 H (8-20) Glucose 145 H (70-100) mg/dL Lactic Acid 0.7 (0.5-2.0) mmol/L Calcium 8.8 (8.6-10.3) mg/dL Total Bilirubin 2.40 H (0.2-1.0) mg/dL AST 54 H (13-39) U/L ALT 70 H (7-52) U/L Alkaline Phosphatase 181 H (34-104) U/L Troponin I 0.03 (<0.04) ng/mL B-Natriuretic Peptide ( - 100) pg/mL Total Protein 5.1 L (6.4-8.9) g/dL Albumin 2.4 L (3.2-5.2) g/dL Globulin 2.7 (2-4) g/dL Albumin/Globulin Ratio 0.9 L (1-3) Result Diagrams: 03/15/18 18:20 03/15/18 18:20 Lab Statement: Any lab studies that have been ordered have been reviewed, and results considered in the medical decision making process. - EKG 17:55 Cardiac Rate: NL EKG Rhythm: Sinus Rhythm - 94 bPM EKG Interpretation: Premature atrial complexes, RBBB Course/Dx - Course Course Of Treatment: Patient re-admitted to hospitalist team. - Diagnoses Provider Diagnoses: Weakness generalized Discharge - Sign-Out/Discharge Documenting (check all that apply): Discharge - Discharge Plan Condition: Stable Disposition: ADMITTED TO [facility] - Billing Disposition and Condition Condition: STABLE Disposition: HOSP-[facility] The documentation as recorded by the Scott zamarripa Jennifer accurately reflects the service I personally performed and the decisions made by , Christian Gomez MD.
[2018-03-16] MEDS ORDERED: LORazepam TAB(*) 0.5 MG PO ONE (03:50)
[2018-03-16] MEDS: Heparin VIAL(*) 5000 UNITS/ML VIAL (FIVE THOUSAND) SUBCUT SCH ×3 (05:04→22:14)
[2018-03-16] MEDS: NS 0.9% 1000 ML* 1,000 ML IV SCH (05:04)
[2018-03-16] MEDS: Clotrimazole TROCHE* 10 MG TROCHE PO SCH ×5 (05:14→22:13)
[2018-03-16 05:52] LABS: ABS Basophils 0 10^3/ul (0-0.2); ABS Eosinophils 0 10^3/ul (0-0.6); ABS Lymphocytes 0.5 10^3/ul (1.0-4.8); ABS Monocytes 0.2 10^3/ul (0-0.8); ABS Neutrophils 0.5 10^3/ul (1.5-7.7); ABS Nucleated RBC 0 10^3/ul; Eosinophil % 0.4 % (0-6); Hematocrit 26 % (35-47); Lymphocyte % 41.7 % (25-47); Mean Corpuscular HGB Conc 35 g/dl (31-36); Mean Corpuscular Hemoglobin 35 pg (27-31); Mean Corpuscular Volume 100 fL (80-97); Mean Platelet Volume 7.7 um3 (7.4-10.4); Nucleated Red Blood Cells % 0.6; Platelet Count 94 10^3/ul (150-450); Red Blood Count 2.59 10^6/ul (4.0-5.4); Red Cell Distribution Width 16 % (10.5-15); White Blood Count 1.2 10^3/ul (3.5-10.8)
[2018-03-16 05:53] LABS: INR 0.94 (0.77-1.02)
[2018-03-16 06:00] LABS: EGFR Non-African American 40.4 (>60)
[2018-03-16] MEDS: Metoprolol Succinate XL TAB* 100 MG PO SCH (10:07)
[2018-03-16] MEDS: Docusate CAP* 100 MG PO SCH ×2 (10:07→20:47)
[2018-03-16] MEDS: Magnesium Oxide TAB* 400 MG PO SCH ×2 (10:07→20:47)
[2018-03-16] MEDS: Cetirizine* 10 MG TAB PO SCH (10:07)
[2018-03-16] MEDS: Omeprazole CAP* 20 MG PO SCH ×2 (10:07→20:49)
[2018-03-16] MEDS: Polyethylene Glycol 3350* 17 GM PACKET PO SCH (10:08)
[2018-03-16] MEDS: Diltiazem CD CAP* 180 MG PO SCH (10:08)
[2018-03-16] MEDS ORDERED: NS 0.9% 1000 ML* 1,000 ML IV SCH (12:21)
--- NOTE | 2018-03-16 12:30 | PN ---
Subjective Date of Service: 03/16/18 Interval History: C/O weakness. Appetite OK. Pain control OK. Had BM today. Uses O2 at home. ?? more SOB than usual. Objective Active Medications: Albuterol (Ventolin 2.5 Mg/3 Ml Neb.Stella*) 2.5 mg INH Q4H PRN PRN Reason: SOB/WHEEZING Last Admin: 03/16/18 05:29 Dose: 2.5 mg Albuterol (Ventolin Hfa Inhaler*) 2 puff INH Q4H PRN PRN Reason: SOB/WHEEZING Last Admin: 03/16/18 03:34 Dose: 2 inh Cetirizine HCl (Zyrtec*) 10 mg PO DAILY [facility] PRN Reason: Protocol Last Admin: 03/16/18 10:07 Dose: 10 mg Clotrimazole (Mycelex Bethanie*) 10 mg PO FIVE TIMES DAILY [facility] Last Admin: 03/16/18 11:13 Dose: Not Given Diltiazem HCl (Cardizem Cd Cap*) 180 mg PO DAILY [facility] Last Admin: 03/16/18 10:08 Dose: 180 mg Docusate Sodium (Colace Cap*) 100 mg PO BID PRN PRN Reason: CONSTIPATION Docusate Sodium (Colace Cap*) 100 mg PO BID [facility] Last Admin: 03/16/18 10:07 Dose: 100 mg Heparin Sodium (Porcine) (Heparin Vial(*)) 5,000 units SUBCUT Q8HR [facility] Last Admin: 03/16/18 05:04 Dose: 5,000 units Sodium Chloride (Ns 0.9% 1000 Ml*) 1,000 mls @ 75 mls/hr IV PER RATE [facility] Magnesium Oxide (Magox 400 Tab*) 400 mg PO BID [facility] Last Admin: 03/16/18 10:07 Dose: 400 mg Metoprolol Succinate (Toprol Xl Tab*) 100 mg PO DAILY [facility] Last Admin: 03/16/18 10:07 Dose: 100 mg Mometasone Furoate (Asmanex 220 Mcg Mdi *) 2 puff INH 2100 [facility] Olanzapine (Zyprexa Tab*) 10 mg PO BEDTIME [facility] Last Admin: 03/15/18 22:07 Dose: 10 mg Omeprazole (Prilosec Cap*) 20 mg PO BID [facility] Last Admin: 03/16/18 10:07 Dose: 20 mg Ondansetron HCl (Zofran Odt Tab*) 8 mg SL Q6H PRN PRN Reason: NAUSEA Oxycodone/Acetaminophen (Percocet 5/325 Tab*) 1 tab PO 0730,1800 PRN PRN Reason: PAIN Polyethylene Glycol/Electrolytes (Miralax*) 17 gm PO DAILY [facility] Last Admin: 03/16/18 10:08 Dose: 17 gm Prochlorperazine (Compazine Tab*) 10 mg PO Q6H PRN PRN Reason: NAUSEA Scopolamine (Transderm-Scop 1.5 Mg Patch*) 1 patch TRANSDERM Q72H [facility] Last Admin: 03/15/18 22:07 Dose: 1 patch Senna (Senokot Tab*) 1 tab PO BEDTIME [facility] Last Admin: 03/15/18 22:06 Dose: 1 tab Vital Signs - 8 hr 03/16/18 03/16/18 03/16/18 05:29 07:17 11:17 Temperature 97.5 F Pulse Rate 97 104 Respiratory 20 28 22 Rate Blood Pressure 126/70 (mmHg) O2 Sat by Pulse 98 95 Oximetry Oxygen Devices in Use Now: Nasal Cannula Appearance: Alert, partly up in bed. In fair spirits. Tachypneic, otherwise looks comfortable. Eyes: No Scleral Icterus Neck: NL Appearance and Movements; NL JVP, No Thyroid Enlargement, Masses Respiratory: Symmetrical Chest Expansion and Respiratory Effort, Clear to Auscultation, Clear to Percussion, - - tachypneic--breathes per sentence at rest Cardiovascular: NL Sounds; No Murmurs; No JVD, RRR, No Edema, - Extremities: No Edema, No Clubbing, Cyanosis, - Skin: No Rash or Ulcers, No Nodules or Sclerosis, - Neurological: Alert and Oriented x 3, NL Sensation Result Diagrams: 03/16/18 05:10 03/16/18 05:10 Additional Lab and Data: Lab Results 03/15/18 03/15/18 03/15/18 Range/Units 18:20 18:20 18:20 WBC 1.3 L (3.5-10.8) 10^3/ul RBC 2.68 L (4.0-5.4) 10^6/ul Hgb 9.2 L (12.0-16.0) g/dl Hct 27 L (35-47) % MCV 100 H (80-97) fL MCH 34 H (27-31) pg MCHC 34 (31-36) g/dl RDW 16 H (10.5-15) % Plt Count 96 L D (150-450) 10^3/ul MPV 7.6 (7.4-10.4) um3 Neut % (Auto) 52.2 (38-83) % Lymph % (Auto) 34.0 (25-47) % [place] % (Auto) 12.7 H (0-7) % Eos % (Auto) 0.2 (0-6) % Baso % (Auto) 0.9 (0-2) % Absolute Neuts (auto) 0.7 L* (1.5-7.7) 10^3/ul Absolute Lymphs (auto) 0.5 L (1.0-4.8) 10^3/ul Absolute Monos (auto) 0.2 (0-0.8) 10^3/ul Absolute Eos (auto) 0 (0-0.6) 10^3/ul Absolute Basos (auto) 0 (0-0.2) 10^3/ul Absolute Nucleated RBC 0 10^3/ul Nucleated RBC % 0.2 INR (Anticoag Therapy) 1.01 (0.77-1.02) APTT 27.9 (26.0-36.3) seconds Sodium (139-145) mmol/L Potassium (3.5-5.0) mmol/L Chloride (101-111) mmol/L Carbon Dioxide (22-32) mmol/L Anion Gap (2-11) mmol/L BUN (6-24) mg/dL Creatinine (0.51-0.95) mg/dL Est GFR ( Amer) (>60) Est GFR (Non-Af Amer) (>60) BUN/Creatinine Ratio (8-20) Glucose (70-100) mg/dL Lactic Acid (0.5-2.0) mmol/L Calcium (8.6-10.3) mg/dL Total Bilirubin (0.2-1.0) mg/dL AST (13-39) U/L ALT (7-52) U/L Alkaline Phosphatase (34-104) U/L Troponin I (<0.04) ng/mL B-Natriuretic Peptide 155 H ( - 100) pg/mL Total Protein (6.4-8.9) g/dL Albumin (3.2-5.2) g/dL Globulin (2-4) g/dL Albumin/Globulin Ratio (1-3) 03/15/18 03/15/18 Range/Units 18:20 18:20 WBC (3.5-10.8) 10^3/ul RBC (4.0-5.4) 10^6/ul Hgb (12.0-16.0) g/dl Hct (35-47) % MCV (80-97) fL MCH (27-31) pg MCHC (31-36) g/dl RDW (10.5-15) % Plt Count (150-450) 10^3/ul MPV (7.4-10.4) um3 Neut % (Auto) (38-83) % Lymph % (Auto) (25-47) % [place] % (Auto) (0-7) % Eos % (Auto) (0-6) % Baso % (Auto) (0-2) % Absolute Neuts (auto) (1.5-7.7) 10^3/ul Absolute Lymphs (auto) (1.0-4.8) 10^3/ul Absolute Monos (auto) (0-0.8) 10^3/ul Absolute Eos (auto) (0-0.6) 10^3/ul Absolute Basos (auto) (0-0.2) 10^3/ul Absolute Nucleated RBC 10^3/ul Nucleated RBC % INR (Anticoag Therapy) (0.77-1.02) APTT (26.0-36.3) seconds Sodium 122 L (139-145) mmol/L Potassium 4.1 (3.5-5.0) mmol/L Chloride 89 L (101-111) mmol/L Carbon Dioxide 25 (22-32) mmol/L Anion Gap 8 (2-11) mmol/L BUN 52 H (6-24) mg/dL Creatinine 1.62 H (0.51-0.95) mg/dL Est GFR ( Amer) 42.4 (>60) Est GFR (Non-Af Amer) 33.0 (>60) BUN/Creatinine Ratio 32.1 H (8-20) Glucose 145 H (70-100) mg/dL Lactic Acid 0.7 (0.5-2.0) mmol/L Calcium 8.8 (8.6-10.3) mg/dL Total Bilirubin 2.40 H (0.2-1.0) mg/dL AST 54 H (13-39) U/L ALT 70 H (7-52) U/L Alkaline Phosphatase 181 H (34-104) U/L Troponin I 0.03 (<0.04) ng/mL B-Natriuretic Peptide ( - 100) pg/mL Total Protein 5.1 L (6.4-8.9) g/dL Albumin 2.4 L (3.2-5.2) g/dL Globulin 2.7 (2-4) g/dL Albumin/Globulin Ratio 0.9 L (1-3) Assess/Plan/Problems-Billing Assessment: - Patient Problems (1) Weakness Current Visit: Yes Status: Acute Code(s): R53.1 - WEAKNESS SNOMED Code(s) : 17866016 Comment: Possibly due to her neuropathy, COPD, anemia, uremia. PT eval postponed by pt to Saturday 03/17. (2) Uterine sarcoma Current Visit: No Status: Acute Code(s): C54.9 - MALIGNANT NEOPLASM OF CORPUS UTERI, UNSPECIFIED SNOMED Code(s): 881840151 Comment: Pancytopenia from chemo. CBC 03/17. (3) CKD (chronic kidney disease) stage 3, GFR 30-59 ml/min Current Visit: Yes Status: Acute Code(s): N18.3 - CHRONIC KIDNEY DISEASE, STAGE 3 (MODERATE) SNOMED Code(s): 634094381 Comment: Est GFR 40.4 on 03/16/18. (4) Hyponatremia Current Visit: No Status: Acute Code(s): E87.1 - HYPO-OSMOLALITY AND HYPONATREMIA SNOMED Code(s): 38696675 Comment: Improved. NSS at 75 ml/hr 03/17. (5) HTN (hypertension) Current Visit: No Status: Acute Code(s): I10 - ESSENTIAL (PRIMARY) HYPERTENSION SNOMED Code(s): 25351884 Comment: Continue diltiazem and Metoprolol.
[2018-03-16] MEDS: ALPRAZolam TAB* 0.5 MG PO PRN (18:05)
[2018-03-16] MEDS: oxyCODONE/Acetamin 5/325 MG* TAB PO PRN (18:10)
[2018-03-16] MEDS: Mometasone 220 MCG MDI INH SCH (19:58)
[2018-03-16] MEDS: OLANzapine TAB* 10 MG PO SCH (20:47)
[2018-03-16] MEDS: Senna TAB PO SCH (20:47)
[2018-03-17] MEDS: ALPRAZolam TAB* 0.5 MG PO PRN (03:02)
[2018-03-17] MEDS: Heparin VIAL(*) 5000 UNITS/ML VIAL (FIVE THOUSAND) SUBCUT SCH ×3 (05:40→22:58)
[2018-03-17 06:18] LABS: ABS Basophils 0 10^3/ul (0-0.2); ABS Eosinophils 0 10^3/ul (0-0.6); ABS Lymphocytes 0.6 10^3/ul (1.0-4.8); ABS Monocytes 0.2 10^3/ul (0-0.8); ABS Neutrophils 0.6 10^3/ul (1.5-7.7); ABS Nucleated RBC 0 10^3/ul; Eosinophil % 0.3 % (0-6); Hematocrit 26 % (35-47); Hemoglobin 8.7 g/dl (12.0-16.0); Lymphocyte % 40.9 % (25-47); Mean Corpuscular HGB Conc 34 g/dl (31-36); Mean Corpuscular Hemoglobin 35 pg (27-31); Mean Corpuscular Volume 102 fL (80-97); Mean Platelet Volume 8.4 um3 (7.4-10.4); Nucleated Red Blood Cells % 0; Platelet Count 98 10^3/ul (150-450); Red Cell Distribution Width 16 % (10.5-15); White Blood Count 1.4 10^3/ul (3.5-10.8)
[2018-03-17 06:21] LABS: EGFR Non-African American 47.1 (>60)
[2018-03-17] MEDS: Clotrimazole TROCHE* 10 MG TROCHE PO SCH ×5 (06:21→22:59)
[2018-03-17] MEDS: oxyCODONE/Acetamin 5/325 MG* TAB PO PRN (08:48)
[2018-03-17] MEDS: Cetirizine* 10 MG TAB PO SCH (09:09)
[2018-03-17] MEDS: Diltiazem CD CAP* 180 MG PO SCH (09:10)
[2018-03-17] MEDS: Magnesium Oxide TAB* 400 MG PO SCH ×2 (09:10→22:55)
[2018-03-17] MEDS: Docusate CAP* 100 MG PO SCH ×2 (09:10→22:55)
[2018-03-17] MEDS: Omeprazole CAP* 20 MG PO SCH ×2 (09:10→22:56)
[2018-03-17] MEDS: Metoprolol Succinate XL TAB* 100 MG PO SCH (09:10)
[2018-03-17] MEDS: Polyethylene Glycol 3350* 17 GM PACKET PO SCH (09:11)
[2018-03-17] MEDS ORDERED: Furosemide IV* 10 MG/ML VIAL (40 MG) IV SLOW PU ONE (10:25)
--- NOTE | 2018-03-17 10:55 | PN ---
Progress Note - Progress Note Date of Service: 03/17/18 SOAP: Subjective: []Gayatri was admitted 03/12 with hyponatremia and acute renal failure secondary to dehydration r/t nausea, vomiting, and anorexia following C1 Trabectedin (03/07). Discharged home 03/15 per pt. preference however unfortunately it appears she mislead the care team regarding her ability to manage independently as once home she was unable to ambulate d/t weakness and was brought back to the ER that evening. Tells me she is feeling OK though admits to feeling full and somewhat uncomfortable. Biggest complain is dry mouth making it difficult to talk. Peeing a lot and very thristy Medications: Albuterol (Ventolin 2.5 Mg/3 Ml Neb.Stella*) 2.5 mg INH Q4H PRN PRN Reason: SOB/WHEEZING Last Admin: 03/16/18 05:29 Dose: 2.5 mg Albuterol (Ventolin Hfa Inhaler*) 2 puff INH Q4H PRN PRN Reason: SOB/WHEEZING Last Admin: 03/16/18 03:34 Dose: 2 inh Alprazolam (Xanax Tab*) 0.5 mg PO Q6H PRN PRN Reason: ANXIETY Last Admin: 03/17/18 03:02 Dose: 0.5 mg Cetirizine HCl (Zyrtec*) 10 mg PO DAILY [facility] PRN Reason: Protocol Last Admin: 03/17/18 09:09 Dose: 10 mg Clotrimazole (Mycelex Bethanie*) 10 mg PO FIVE TIMES DAILY [facility] Last Admin: 03/17/18 09:11 Dose: 10 mg Diltiazem HCl (Cardizem Cd Cap*) 180 mg PO DAILY [facility] Last Admin: 03/17/18 09:10 Dose: 180 mg Docusate Sodium (Colace Cap*) 100 mg PO BID PRN PRN Reason: CONSTIPATION Docusate Sodium (Colace Cap*) 100 mg PO BID [facility] Last Admin: 03/17/18 09:10 Dose: 100 mg Furosemide (Lasix Iv*) 40 mg IV SLOW PU ONCE ONE Stop: 03/17/18 10:26 Heparin Sodium (Porcine) (Heparin Vial(*)) 5,000 units SUBCUT Q8HR [facility] Last Admin: 03/17/18 05:40 Dose: 5,000 units Lorazepam (Ativan Inj*) 0.5 mg IV PUSH Q4H PRN PRN Reason: Anxiety/nausea/discomfort Magnesium Oxide (Magox 400 Tab*) 400 mg PO BID [facility] Last Admin: 03/17/18 09:10 Dose: 400 mg Metoprolol Succinate (Toprol Xl Tab*) 100 mg PO DAILY [facility] Last Admin: 03/17/18 09:10 Dose: 100 mg Mometasone Furoate (Asmanex 220 Mcg Mdi *) 2 puff INH 2100 [facility] Last Admin: 03/16/18 19:58 Dose: 2 puff Omeprazole (Prilosec Cap*) 20 mg PO BID [facility] Last Admin: 03/17/18 09:10 Dose: 20 mg Ondansetron HCl (Zofran Odt Tab*) 8 mg SL Q6H PRN PRN Reason: NAUSEA Oxycodone/Acetaminophen (Percocet 5/325 Tab*) 1 tab PO 0730,1800 PRN PRN Reason: PAIN Last Admin: 03/17/18 08:48 Dose: 1 tab Polyethylene Glycol/Electrolytes (Miralax*) 17 gm PO DAILY [facility] Last Admin: 03/17/18 09:11 Dose: 17 gm Prochlorperazine (Compazine Tab*) 10 mg PO Q6H PRN PRN Reason: NAUSEA Scopolamine (Transderm-Scop 1.5 Mg Patch*) 1 patch TRANSDERM Q72H [facility] Last Admin: 03/15/18 22:07 Dose: 1 patch Senna (Senokot Tab*) 1 tab PO BEDTIME [facility] Last Admin: 03/16/18 20:47 Dose: 1 tab Objective: [] Vital Signs Temp Pulse Resp BP Pulse Ox 98.1 F 97 24 122/68 99 03/16/18 23:38 03/17/18 07:26 03/17/18 08:48 03/17/18 07:26 03/17/18 07:26 A&Ox3, EOMI, PERRLA, CN II-XII intact Strength = bilat. 4/5 +conjunctival irritation similar to pt. baseline with icterus HRR, S1S2, distant heart sounds, no murmur noted LS dim. to bases (x-ray on admission without effusion) +BS, abd. round and distended +fluid wave, soft though taught +2 firm edema bilat. ankles with approx. +1 non-pitting wrists Soft voice communicating clearly Dry mouth without ulcerations, no patching noted Laboratory Results - last 24 hr 03/17/18 03/17/18 05:36 05:36 WBC 1.4 L RBC 2.50 L Hgb 8.7 L Hct 26 L MCV 102 H MCH 35 H MCHC 34 RDW 16 H Plt Count 98 L MPV 8.4 Neut % (Auto) 40.6 Lymph % (Auto) 40.9 [place] % (Auto) 17.9 H Eos % (Auto) 0.3 Baso % (Auto) 0.3 Absolute Neuts (auto) 0.6 L* Absolute Lymphs (auto) 0.6 L Absolute Monos (auto) 0.2 Absolute Eos (auto) 0 Absolute Basos (auto) 0 Absolute Nucleated RBC 0 Nucleated RBC % 0 Sodium 125 L Potassium 4.3 Chloride 93 L Carbon Dioxide 25 Anion Gap 7 BUN 40 H Creatinine 1.19 H Est GFR ( Amer) 60.6 Est GFR (Non-Af Amer) 47.1 BUN/Creatinine Ratio 33.6 H Glucose 138 H Calcium 8.8 Assessment: []57 yo female with advanced uterine leiomyosarcoma now D11 of C1 Trabectedin with significant toxicity including hyperbilirubemia and severe nausea, vomiting , and anorexia causing severe dehydration, hyponatremia, and subsequent acute renal failure. Unfortunately with managed we have held her diuretics and she now appears to be in fluid overload. Weakness and failure at home likely related to overload as well as slow recovery of acute renal failure and cont. hyponatermia. Pt.'s condition discussed at length with Gayatri as I am very concerned this may represent a failure of her ability to tolerate treatment and an underlying progression of her already very aggressive disease. She still wishes to be full code though understands the acuity of her situation. Plan: []1. Fluid Overload: IV lasix 40 mg x1, OK to place byrne for short period 2. Ascites: STAT US guided paracentesis, goal of 4-5 L off if possible, though peritoneal implants may make it difficult (lending to need for US). OK to do with plt. as long as >75K but will hold heparin until after procedure 3. Oconnell-cytopenia: secondary to chemotherapy, expected recovery over the next week, neutropenic precautions 4. Renal failure: acute with slow recovery, follow daily labs and will avoid fluids if possible d/t overload 5. Hyponatremia: stable at this time, however may want to consider sodium tablets if needed, hold NS with overload 6. SOB: stable without evidence for effusion 7. Weakness: related to above and advanced disease, PT/OT eval. as likely will need sub-acute rehab, though with acuity today will hold off 8. Cancer: advanced disease and depending on recovery from above will direct if she can cont. treatment, may benefit from palliative consult during admission, though we will hold off today with above care (re-eval. tomorrow if she shows any improvement after paracentesis and diuretic) >60 min spent with majority face to face management
[2018-03-17] MEDS: LORazepam INJ* 2 MG/ML 1 ML VIAL IV PUSH PRN ×2 (11:27→22:07)
[2018-03-17] MEDS: Ondansetron ODT TAB* 4 MG SL PRN (17:38)
[2018-03-17] MEDS: Mometasone 220 MCG MDI INH SCH (20:39)
[2018-03-17] MEDS: Ondansetron INJ* 2 MG/ML VIAL IV PRN (22:07)
[2018-03-17] MEDS: Senna TAB PO SCH (22:55)
[2018-03-18] MEDS ORDERED: PROCHLORPERAZINE INJ 5 MG/ML 2 ML VIAL ONE (00:12)
[2018-03-18] MEDS: LORazepam INJ* 2 MG/ML 1 ML VIAL IV PUSH PRN ×6 (02:28→20:09)
[2018-03-18] MEDS: Clotrimazole TROCHE* 10 MG TROCHE PO SCH ×5 (04:49→22:34)
[2018-03-18] MEDS: Heparin VIAL(*) 5000 UNITS/ML VIAL (FIVE THOUSAND) SUBCUT SCH ×3 (04:59→22:50)
[2018-03-18 05:31] LABS: Hematocrit 27 % (35-47); Mean Corpuscular HGB Conc 34 g/dl (31-36); Mean Corpuscular Hemoglobin 35 pg (27-31); Mean Corpuscular Volume 102 fL (80-97); Mean Platelet Volume 8.1 um3 (7.4-10.4); Platelet Count 137 10^3/ul (150-450); Red Blood Count 2.61 10^6/ul (4.0-5.4); Red Cell Distribution Width 16 % (10.5-15); White Blood Count 1.7 10^3/ul (3.5-10.8)
[2018-03-18 05:33] LABS: ABS Basophils 0 10^3/ul (0-0.2); ABS Eosinophils 0 10^3/ul (0-0.6); ABS Lymphocytes 0.6 10^3/ul (1.0-4.8); ABS Monocytes 0.5 10^3/ul (0-0.8); ABS Nucleated RBC 0 10^3/ul; Eosinophil % 0.3 % (0-6); Lymphocyte % 32.7 % (25-47); Nucleated Red Blood Cells % 0.2
[2018-03-18 05:36] LABS: ABS Neutrophils 0.7 10^3/ul (1.5-7.7)
[2018-03-18] MEDS: PROCHLORPERAZINE INJ 5 MG/ML 2 ML VIAL IV PRN ×2 (06:10→12:38)
[2018-03-18] MEDS: Ondansetron INJ* 2 MG/ML VIAL IV PRN (07:34)
[2018-03-18] MEDS ORDERED: Dexamethasone IV* 4 MG/ML 1 ML (4 MG) IV SLOW PU ONE (10:00)
--- NOTE | 2018-03-18 10:26 | RAD ---
CPT II Codes: 6100F ULTRASOUND-GUIDED PARACENTESIS. INDICATION: Shortness of breath due to ascites in a patient with history of uterine sarcoma COMPARISON: Abdominal ultrasound March 14, 2018 IMAGING FINDINGS AND PROCEDURE NOTE: The benefits of the and risks of procedure explained to the patient. The patient consented of the exam. At the patient's bedside in Room 412 multiple images of the peritoneal fluid were obtained. There was a large amount of ascites present throughout the abdomen. The largest pocket of fluid was chosen for the paracentesis which was in the left lower quadrant. A time out was performed before beginning the procedure. The patient was prepped and draped in the usual sterile fashion. The patient?s abdominal wall at the site was anesthetized with 1% lidocaine. A small skin cory was made to admit the paracentesis needle and catheter. Under sonographic control the drainage catheter was advanced into the ascites pocket. An image was saved. Approximately 5 Liters of a yellow tinged fluid was removed. The patient tolerated procedure well without incident. IMPRESSION: UNCOMPLICATED ULTRASOUND-GUIDED PARACENTESIS DESCRIBED ABOVE.
[2018-03-18] MEDS: Diltiazem CD CAP* 180 MG PO SCH (10:33)
[2018-03-18] MEDS: Metoprolol Succinate XL TAB* 100 MG PO SCH (10:33)
[2018-03-18] MEDS: Docusate CAP* 100 MG PO SCH (10:36)
[2018-03-18] MEDS: Cetirizine* 10 MG TAB PO SCH (10:36)
[2018-03-18] MEDS: Omeprazole CAP* 20 MG PO SCH (10:36)
[2018-03-18] MEDS: Magnesium Oxide TAB* 400 MG PO SCH ×2 (10:36→20:04)
[2018-03-18] MEDS: Polyethylene Glycol 3350* 17 GM PACKET PO SCH (10:37)
--- NOTE | 2018-03-18 11:42 | PN ---
Progress Note - Progress Note Date of Service: 03/18/18 SOAP: Subjective: [Gayatri has developed severe nausea and vomiting overnight. Remains extremely ill feeling despite freq IV antiemetics and has vomited 3 times this am. No BM this am. No change in chronic abd pain. She underwent US guided paracentesis this am with drainage of 5L fluid. No change in her symptoms post procedure.] Objective: [ Albuterol (Ventolin 2.5 Mg/3 Ml Neb.Stella*) 2.5 mg INH Q4H PRN PRN Reason: SOB/WHEEZING Last Admin: 03/16/18 05:29 Dose: 2.5 mg Albuterol (Ventolin Hfa Inhaler*) 2 puff INH Q4H PRN PRN Reason: SOB/WHEEZING Last Admin: 03/16/18 03:34 Dose: 2 inh Alprazolam (Xanax Tab*) 0.5 mg PO Q6H PRN PRN Reason: ANXIETY Last Admin: 03/17/18 03:02 Dose: 0.5 mg Cetirizine HCl (Zyrtec*) 10 mg PO DAILY [facility] PRN Reason: Protocol Last Admin: 03/18/18 10:36 Dose: Not Given Clotrimazole (Mycelex Bethanie*) 10 mg PO FIVE TIMES DAILY [facility] Last Admin: 03/18/18 10:37 Dose: Not Given Dexamethasone Sodium Phosphate (Decadron Iv*) 8 mg IV SLOW PU BID [facility] Diltiazem HCl (Cardizem Cd Cap*) 180 mg PO DAILY [facility] Last Admin: 03/18/18 10:33 Dose: 180 mg Docusate Sodium (Colace Cap*) 100 mg PO BID PRN PRN Reason: CONSTIPATION Docusate Sodium (Colace Cap*) 100 mg PO BID [facility] Last Admin: 03/18/18 10:36 Dose: Not Given Dronabinol (Marinol Cap*) 2.5 mg PO AC [facility] Heparin Sodium (Porcine) (Heparin Vial(*)) 5,000 units SUBCUT Q8HR [facility] Last Admin: 03/18/18 04:59 Dose: 5,000 units Lorazepam (Ativan Inj*) 0.5 mg IV PUSH Q4H PRN PRN Reason: Anxiety/nausea/discomfort Last Admin: 03/18/18 10:19 Dose: 0.5 mg Magnesium Oxide (Magox 400 Tab*) 400 mg PO BID [facility] Last Admin: 03/18/18 10:36 Dose: Not Given Metoprolol Succinate (Toprol Xl Tab*) 100 mg PO DAILY [facility] Last Admin: 03/18/18 10:33 Dose: 100 mg Mometasone Furoate (Asmanex 220 Mcg Mdi *) 2 puff INH 2100 [facility] Last Admin: 03/17/18 20:39 Dose: 2 puff Olanzapine (Zyprexa Tab*) 10 mg PO BEDTIME [facility] Omeprazole (Prilosec Cap*) 20 mg PO BID [facility] Last Admin: 03/18/18 10:36 Dose: Not Given Ondansetron HCl (Zofran Odt Tab*) 8 mg SL Q6H PRN PRN Reason: NAUSEA Last Admin: 03/17/18 17:38 Dose: 8 mg Ondansetron HCl (Zofran Inj*) 8 mg IV Q8H PRN PRN Reason: NAUSEA Last Admin: 03/18/18 07:34 Dose: 8 mg Oxycodone/Acetaminophen (Percocet 5/325 Tab*) 1 tab PO 0730,1800 PRN PRN Reason: PAIN Last Admin: 03/17/18 08:48 Dose: 1 tab Pantoprazole Sodium (Protonix Iv*) 40 mg IV DAILY [facility] Polyethylene Glycol/Electrolytes (Miralax*) 17 gm PO DAILY [facility] Last Admin: 03/18/18 10:37 Dose: Not Given Prochlorperazine (Compazine Tab*) 10 mg PO Q6H PRN PRN Reason: NAUSEA Prochlorperazine Edisylate (Compazine Inj*) 10 mg IV Q6H PRN PRN Reason: NAUSEA/VOMITING Last Admin: 03/18/18 06:10 Dose: 10 ml Scopolamine (Transderm-Scop 1.5 Mg Patch*) 1 patch TRANSDERM Q72H [facility] Last Admin: 03/15/18 22:07 Dose: 1 patch Senna (Senokot Tab*) 1 tab PO BEDTIME [facility] Last Admin: 03/17/18 22:55 Dose: 1 tab Laboratory Results - last 24 hr 03/18/18 03/18/18 05:05 05:05 WBC 1.7 L RBC 2.61 L Hgb 9.0 L Hct 27 L MCV 102 H MCH 35 H MCHC 34 RDW 16 H Plt Count 137 L MPV 8.1 Neut % (Auto) 40.8 Lymph % (Auto) 32.7 [place] % (Auto) 26.0 H Eos % (Auto) 0.3 Baso % (Auto) 0.2 Absolute Neuts (auto) 0.7 L* Absolute Lymphs (auto) 0.6 L Absolute Monos (auto) 0.5 Absolute Eos (auto) 0 Absolute Basos (auto) 0 Absolute Nucleated RBC 0 Nucleated RBC % 0.2 Sodium 127 L Potassium 3.7 Chloride 93 L Carbon Dioxide 25 Anion Gap 9 BUN 38 H Creatinine 1.17 H Est GFR ( Amer) 61.8 Est GFR (Non-Af Amer) 48.0 BUN/Creatinine Ratio 32.5 H Glucose 121 H Calcium 8.9 Magnesium 2.4 Total Bilirubin 1.70 H AST 36 ALT 54 H Alkaline Phosphatase 175 H Total Protein 5.2 L Albumin 2.4 L Globulin 2.8 Albumin/Globulin Ratio 0.9 L Vital Signs: Temp Pulse Resp BP Pulse Ox 97.7 F 118 24 116/74 97 03/18/18 10:38 03/18/18 10:38 03/18/18 10:38 03/18/18 10:38 03/18/18 10:38 Exam: Gen: acutely ill appearing 57 yo female HEENT: MM mildly dry Resp: lungs CTA, exam somewhat limited CV: RRR, no m/r/g Abd: soft, hypoactive BS Ext: trace edema] Assessment: [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 Nausea/vomiting - redeveloped n/v overnight - check abd XR to eval for obstruction - cont IV antiemetics - added Dronabinol and Olanzapine if she is able to tolerate some oral medications - start IV protonix 2. Leiomyosarcoma with ascites - patient has tolerated treatment extremely poorly - s/p paracentesis today, with 5L drained - she is an appropriate candidate for palliative consult, but patient would like to wait a couple of days prior to discussing next steps - PT/OT eval when acute emesis improves ]
[2018-03-18] MEDS: Pantoprazole IV* 40 MG IV SCH (12:39)
--- NOTE | 2018-03-18 14:36 | RAD ---
HISTORY: Nausea, vomiting, small bowel obstruction COMPARISONS: CT dated February 24, 2018 VIEWS: Frontal views of the abdomen. FINDINGS: BOWEL: There is gastric distention. There is marked dilatation of loops of small bowel with the upper abdomen measuring up to 9.5 cm transversely. There is a paucity of distal bowel gas. CALCULI: There are no abnormal calculi. BONES AND SOFT TISSUES: There are no osseous abnormalities. OTHER FINDINGS: The lung bases are clear. There is no subphrenic gas. IMPRESSION: FINDINGS CONSISTENT WITH PROXIMAL SMALL BOWEL OBSTRUCTION.
--- NOTE | 2018-03-18 15:38 | CONSULT ---
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 I saw her at [facility] a few weeks ago for palliative consultation, and in the company of her she filled out a [facility] form specifying DNR/DNI status. She no longer has that [facility] form, and says she meant for the DNR to be "when I was older, and on 's doorstep". She is now electing to be full code. She says she hopes the bowel obstruction is not due to her palliative chemotherapy because she does not want to discontinue the chemo. She wants to pursue every option to remain alive. She underwent paracentesis today with removal of 5 L fluid but no relief of her dyspnea. Xray shows a complete proximal small bowel obstruction and very distended small bowel loops and stomach. . Lab Values: Abnormal Lab Results 03/18/18 03/18/18 05:05 05:05 WBC 1.7 L RBC 2.61 L Hgb 9.0 L Hct 27 L MCV 102 H MCH 35 H MCHC 34 RDW 16 H Plt Count 137 L MPV 8.1 Neut % (Auto) 40.8 Lymph % (Auto) 32.7 [place] % (Auto) 26.0 H Eos % (Auto) 0.3 Baso % (Auto) 0.2 Absolute Neuts (auto) 0.7 L* Absolute Lymphs (auto) 0.6 L Absolute Monos (auto) 0.5 Absolute Eos (auto) 0 Absolute Basos (auto) 0 Absolute Nucleated RBC 0 Nucleated RBC % 0.2 Sodium 127 L Potassium 3.7 Chloride 93 L Carbon Dioxide 25 Anion Gap 9 BUN 38 H Creatinine 1.17 H Est GFR ( Amer) 61.8 Est GFR (Non-Af Amer) 48.0 BUN/Creatinine Ratio 32.5 H Glucose 121 H Calcium 8.9 Magnesium 2.4 Total Bilirubin 1.70 H AST 36 ALT 54 H Alkaline Phosphatase 175 H Total Protein 5.2 L Albumin 2.4 L Globulin 2.8 Albumin/Globulin Ratio 0.9 L Laboratory Last Values WBC 1.7 10^3/ul (3.5-10.8) L 03/18/18 05:05 RBC 2.61 10^6/ul (4.0-5.4) L 03/18/18 05:05 Hgb 9.0 g/dl (12.0-16.0) L 03/18/18 05:05 Hct 27 % (35-47) L 03/18/18 05:05 MCV 102 fL (80-97) H 03/18/18 05:05 MCH 35 pg (27-31) H 03/18/18 05:05 MCHC 34 g/dl (31-36) 03/18/18 05:05 RDW 16 % (10.5-15) H 03/18/18 05:05 Plt Count 137 10^3/ul (150-450) L 03/18/18 05:05 MPV 8.1 um3 (7.4-10.4) 03/18/18 05:05 Neut % (Auto) 40.8 % (38-83) 03/18/18 05:05 Lymph % (Auto) 32.7 % (25-47) 03/18/18 05:05 [place] % (Auto) 26.0 % (0-7) H 03/18/18 05:05 Eos % (Auto) 0.3 % (0-6) 03/18/18 05:05 Baso % (Auto) 0.2 % (0-2) 03/18/18 05:05 Absolute Neuts (auto) 0.7 10^3/ul (1.5-7.7) L* 03/18/18 05:05 Absolute Lymphs (auto) 0.6 10^3/ul (1.0-4.8) L 03/18/18 05:05 Absolute Monos (auto) 0.5 10^3/ul (0-0.8) 03/18/18 05:05 Absolute Eos (auto) 0 10^3/ul (0-0.6) 03/18/18 05:05 Absolute Basos (auto) 0 10^3/ul (0-0.2) 03/18/18 05:05 Absolute Nucleated RBC 0 10^3/ul 03/18/18 05:05 Nucleated RBC % 0.2 03/18/18 05:05 INR (Anticoag Therapy) 0.94 (0.77-1.02) 03/16/18 05:10 APTT 27.9 seconds (26.0-36.3) 03/15/18 18:20 Sodium 127 mmol/L (139-145) L 03/18/18 05:05 Potassium 3.7 mmol/L (3.5-5.0) 03/18/18 05:05 Chloride 93 mmol/L (101-111) L 03/18/18 05:05 Carbon Dioxide 25 mmol/L (22-32) 03/18/18 05:05 Anion Gap 9 mmol/L (2-11) 03/18/18 05:05 BUN 38 mg/dL (6-24) H 03/18/18 05:05 Creatinine 1.17 mg/dL (0.51-0.95) H 03/18/18 05:05 Est GFR ( Amer) 61.8 (>60) 03/18/18 05:05 Est GFR (Non-Af Amer) 48.0 (>60) 03/18/18 05:05 BUN/Creatinine Ratio 32.5 (8-20) H 03/18/18 05:05 Glucose 121 mg/dL (70-100) H 03/18/18 05:05 Lactic Acid 0.7 mmol/L (0.5-2.0) 03/15/18 18:20 Calcium 8.9 mg/dL (8.6-10.3) 03/18/18 05:05 Magnesium 2.4 mg/dL (1.9-2.7) 03/18/18 05:05 Total Bilirubin 1.70 mg/dL (0.2-1.0) H 03/18/18 05:05 Direct Bilirubin 1.60 mg/dL (0.03-0.18) H 03/16/18 05:10 Indirect Bilirubin 0.6 mg/dL (0.3-1.0) 03/16/18 05:10 AST 36 U/L (13-39) 03/18/18 05:05 ALT 54 U/L (7-52) H 03/18/18 05:05 Alkaline Phosphatase 175 U/L (34-104) H 03/18/18 05:05 Troponin I 0.03 ng/mL (<0.04) 03/15/18 18:20 B-Natriuretic Peptide 155 pg/mL (-100) H 03/15/18 18:20 Total Protein 5.2 g/dL (6.4-8.9) L 03/18/18 05:05 Albumin 2.4 g/dL (3.2-5.2) L 03/18/18 05:05 Globulin 2.8 g/dL (2-4) 03/18/18 05:05 Albumin/Globulin Ratio 0.9 (1-3) L 03/18/18 05:05 - Objective Active Medications: Albuterol (Ventolin 2.5 Mg/3 Ml Neb.Stella*) 2.5 mg INH Q4H PRN PRN Reason: SOB/WHEEZING Last Admin: 03/16/18 05:29 Dose: 2.5 mg Albuterol (Ventolin Hfa Inhaler*) 2 puff INH Q4H PRN PRN Reason: SOB/WHEEZING Last Admin: 03/16/18 03:34 Dose: 2 inh Alprazolam (Xanax Tab*) 0.5 mg PO Q6H PRN PRN Reason: ANXIETY Last Admin: 03/17/18 03:02 Dose: 0.5 mg Clotrimazole (Mycelex Bethanie*) 10 mg PO FIVE TIMES DAILY [facility] Last Admin: 03/18/18 12:31 Dose: Not Given Dexamethasone Sodium Phosphate (Decadron Iv*) 8 mg IV SLOW PU BID [facility] Diltiazem HCl (Cardizem Cd Cap*) 180 mg PO DAILY [facility] Last Admin: 03/18/18 10:33 Dose: 180 mg Heparin Sodium (Porcine) (Heparin Vial(*)) 5,000 units SUBCUT Q8HR [facility] Last Admin: 03/18/18 12:39 Dose: 5,000 units Heparin Sodium (Porcine) (Heparin Flush Port (Ivad)) 5 ml FLUSH DAILY [facility] PRN Reason: Protocol Sodium Chloride (Ns 0.9% 1000 Ml*) 1,000 mls @ 75 mls/hr IV PER RATE [facility] Lorazepam (Ativan Inj*) 0.5 mg IV PUSH Q4H PRN PRN Reason: Anxiety/nausea/discomfort Last Admin: 03/18/18 15:00 Dose: 1 mg Magnesium Oxide (Magox 400 Tab*) 400 mg PO BID [facility] Last Admin: 03/18/18 10:36 Dose: Not Given Metoprolol Succinate (Toprol Xl Tab*) 100 mg PO DAILY [facility] Last Admin: 03/18/18 10:33 Dose: 100 mg Mometasone Furoate (Asmanex 220 Mcg Mdi *) 2 puff INH 2100 [facility] Last Admin: 03/17/18 20:39 Dose: 2 puff Ondansetron HCl (Zofran Odt Tab*) 8 mg SL Q6H PRN PRN Reason: NAUSEA Last Admin: 03/17/18 17:38 Dose: 8 mg Ondansetron HCl (Zofran Inj*) 8 mg IV Q8H PRN PRN Reason: NAUSEA Last Admin: 03/18/18 07:34 Dose: 8 mg Pantoprazole Sodium (Protonix Iv*) 40 mg IV DAILY [facility] Last Admin: 03/18/18 12:39 Dose: 40 mg Prochlorperazine Edisylate (Compazine Inj*) 10 mg IV Q6H PRN PRN Reason: NAUSEA/VOMITING Last Admin: 03/18/18 12:38 Dose: 10 mg Scopolamine (Transderm-Scop 1.5 Mg Patch*) 1 patch TRANSDERM Q72H [facility] Last Admin: 03/15/18 22:07 Dose: 1 patch Vital Signs: Vital Signs: Temp Pulse Resp BP Pulse Ox 97.7 F 122 18 121/69 92 03/18/18 10:38 03/18/18 13:00 03/18/18 15:00 03/18/18 13:00 03/18/18 13:00 Patient Weight: Weight 262 lb Intake and Output: Intake & Output 03/16/18 03/17/18 03/18/18 03/19/18 06:59 06:59 06:59 06:59 Intake Total 990 1512 1320 340 Output Total 0 50 1550 225 Balance 990 1462 -230 115 Weight 262 lb Intake: IV Fluids 990 732 NS (0.9%) 990 732 Oral 0 780 1320 340 Output: Urine 0 50 [place] 1550 225 Other: Estimated Void Small Small Medium # Bowel Movements 0 0 0 0 # Voids 0 2 ADLs: Meal Record Start: 03/15/18 21: 13 Freq: DAILY@0900,1400,1800 Status: Active Protocol: Document 03/16/18 09:00 [id number] (Rec: 03/16/18 15:21 [id number] MED-C09) Document 03/16/18 14:00 [id number] (Rec: 03/16/18 15:24 [id number] MED-C09) Document 03/16/18 18:00 [id number] (Rec: 03/16/18 23:44 [id number] MED-C14) Document 03/17/18 09:00 [id number] (Rec: 03/17/18 09:28 [id number] MED-C11) Document 03/17/18 14:00 [id number] (Rec: 03/17/18 15:42 [id number] MED-C04) Document 03/17/18 18:00 [id number] (Rec: 03/17/18 19:49 [id number] MED-C14) Document 03/18/18 09:00 [id number] (Rec: 03/18/18 09:43 [id number] MED-C04) Document 03/18/18 14:00 [id number] (Rec: 03/18/18 14:50 [id number] MED-C04) Intake and Output Start: 03/15/18 21: 13 Freq: DAILY@0600,1400,2200 Status: Active Protocol: Document 03/15/18 22:00 [id number] (Rec: 03/15/18 22:40 [id number] MED-C07) Document 03/16/18 06:00 [id number] (Rec: 03/16/18 06:26 [id number] MED-C11) Document 03/16/18 14:00 [id number] (Rec: 03/16/18 15:24 [id number] MED-C09) Document 03/16/18 22:00 [id number] (Rec: 03/16/18 23:49 [id number] MED-C14) Document 03/17/18 14:00 [id number] (Rec: 03/17/18 15:42 [id number] MED-C04) Document 03/17/18 22:00 [id number] (Rec: 03/17/18 23:40 [id number] MED-C14) Document 03/18/18 05:17 [id number] (Rec: 03/18/18 05:17 [id number] MED-C11) Document 03/18/18 14:00 [id number] (Rec: 03/18/18 14:50 [id number] MED-C04) General Impression: Obese, dyspneic woman fighting to remain awake, with difficulty talking due to dry mouth and shortness of breath. Eyes: No Scleral Icterus Neck: NL Appearance and Movements; NL JVP, No Thyroid Enlargement, Masses Cardiovascular: NL Sounds; No Murmurs; No JVD, RRR, No Edema, - Extremities: No Edema, No Clubbing, Cyanosis, - Neurological: Alert and Oriented x 3, NL Sensation - Assessment Assessment: This patient seems to me to have either very limited understanding of her illness or massive denial. I was unable to penetrate her insistence on attempting all efforts at rescue even though her prognosis is very grim, and limited. She believes her bowel obstruction may resolve with current conservative measures, and she asked me to check in with her again later in the week. She is not willing to discuss MOLST orders or any advance directives. She is neutropenic and hypoalbuminemic, and would be an extremely poor surgical candidate. If her obstruction is relieved, I would be glad to speak with her more fully later in the week. - Plan Consult Plan (MU): Palliative - Time On Unit Date of Evaluation: 03/18/18 Hospice Consult Time in: 14:50 Hospice Consult Time Out: 15:30 Hospice Consult Time Total: 40 > 50% of Time Spend In Counseling or Coordinating Care: Yes
[2018-03-18] MEDS ORDERED: Dronabinol CAP* 2.5 MG PO SCH (16:30)
--- NOTE | 2018-03-18 16:49 | RAD ---
Indication: Confirm NG tube placement. Single frontal view of the chest performed at 1623 hours was reviewed. Comparison is made with previous exam dated March 15, 2018. Cardiomegaly is noted. Mild interstitial edema is noted. Nasogastric tube is in place. Port-A-Cath is in place. IMPRESSION: CARDIOMEGALY WITH CENTRAL CATHETER IN THE SUPERIOR VENA CAVA. NASOGASTRIC TUBE IS IN PLACE.
[2018-03-18] MEDS ORDERED: OLANzapine TAB* 10 MG PO SCH (21:00)
[2018-03-18] MEDS: Mometasone 220 MCG MDI INH SCH (21:06)
[2018-03-18] MEDS: Dexamethasone IV* 4 MG/ML 1 ML (4 MG) IV SLOW PU SCH (22:47)
[2018-03-18] MEDS: Scopolamine 1.5 mg* PATCH TRANSDERM SCH (22:47)
[2018-03-19] MEDS: Clotrimazole TROCHE* 10 MG TROCHE PO SCH ×5 (05:22→20:25)
[2018-03-19] MEDS: Heparin VIAL(*) 5000 UNITS/ML VIAL (FIVE THOUSAND) SUBCUT SCH ×3 (06:01→22:03)
[2018-03-19] MEDS: NS 0.9% 1000 ML* 1,000 ML IV SCH ×2 (06:07→20:28)
[2018-03-19] MEDS: Dexamethasone IV* 4 MG/ML 1 ML (4 MG) IV SLOW PU SCH ×2 (07:20→20:25)
[2018-03-19] MEDS: LORazepam INJ* 2 MG/ML 1 ML VIAL IV PUSH PRN ×2 (07:21→15:00)
[2018-03-19] MEDS: Pantoprazole IV* 40 MG IV SCH (07:21)
[2018-03-19] MEDS: Diltiazem CD CAP* 180 MG PO SCH (07:28)
[2018-03-19] MEDS: Metoprolol Succinate XL TAB* 100 MG PO SCH (07:28)
[2018-03-19] MEDS: Magnesium Oxide TAB* 400 MG PO SCH ×2 (07:28→20:25)
--- NOTE | 2018-03-19 08:26 | RAD ---
HISTORY: Evaluate small bowel obstruction COMPARISONS: March 18, 2018 VIEWS: Frontal views of the abdomen. FINDINGS: The study is technically limited by positioning and body habitus. BOWEL: There is been interval reduction of the dilatation of the proximal small bowel with decreased gastric distention. Currently there is nondilated small bowel within the left upper abdomen. There is a paucity of distal bowel gas. CALCULI: There are no abnormal calculi. BONES AND SOFT TISSUES: There are no osseous abnormalities. OTHER FINDINGS: The lung bases are clear. There is no subphrenic gas. A gastric tube is noted in prepyloric position. IMPRESSION: THERE HAS BEEN INTERVAL RESOLUTION OF THE GASTRIC DISTENTION AND REDUCTION IN CALIBER OF THE SMALL BOWEL, WITH NONDILATED SMALL BOWEL GAS NOTED IN THE LEFT UPPER QUADRANT
[2018-03-19 08:29] LABS: Hematocrit 26 % (35-47); Hemoglobin 8.6 g/dl (12.0-16.0); Mean Corpuscular HGB Conc 34 g/dl (31-36); Mean Corpuscular Hemoglobin 35 pg (27-31); Mean Corpuscular Volume 102 fL (80-97); Mean Platelet Volume 8.2 um3 (7.4-10.4); Platelet Count 169 10^3/ul (150-450); Red Blood Count 2.49 10^6/ul (4.0-5.4); Red Cell Distribution Width 16 % (10.5-15)
[2018-03-19 08:34] LABS: ABS Basophils 0 10^3/ul (0-0.2); ABS Eosinophils 0 10^3/ul (0-0.6); ABS Lymphocytes 0.6 10^3/ul (1.0-4.8); ABS Monocytes 0.6 10^3/ul (0-0.8); ABS Neutrophils 0.8 10^3/ul (1.5-7.7); ABS Nucleated RBC 0 10^3/ul; Eosinophil % 0.1 % (0-6); Lymphocyte % 29.6 % (25-47); Nucleated Red Blood Cells % 0.2
--- NOTE | 2018-03-19 09:38 | PN ---
Progress Note - Progress Note Date of Service: 03/19/18 SOAP: Subjective: feels 100% better, and wants liquids now. no nausea, vomiting or abdominal pain. XRAY with resolved SBO. does NOT want to be full code because she wants to continue to fight her cancer. realizes however that she is too weak to do so at this time. breathing improving. abdominal girth better after 5L paracentesis yesterday. Objective: Vital Signs Temp Pulse Resp BP Pulse Ox 99.2 F 108 18 124/63 97 03/19/18 07:29 03/19/18 07:29 03/19/18 08:38 03/19/18 07:29 03/19/18 07:29 sitting up speaking in full sentences today perr eomi scleral icterus CTA anteriorly tachy dec bs, softer than yesterday, less distended 1+ LLE and trace RLE pitting edema A+O x 3, did not ambulate, globally weak but nonfocal Laboratory Results - last 24 hr 03/19/18 03/19/18 08:14 08:14 WBC 2.0 L RBC 2.49 L Hgb 8.6 L Hct 26 L MCV 102 H MCH 35 H MCHC 34 RDW 16 H Plt Count 169 MPV 8.2 Neut % (Auto) 40.1 Lymph % (Auto) 29.6 [place] % (Auto) 30.0 H Eos % (Auto) 0.1 Baso % (Auto) 0.2 Absolute Neuts (auto) 0.8 L* Absolute Lymphs (auto) 0.6 L Absolute Monos (auto) 0.6 Absolute Eos (auto) 0 Absolute Basos (auto) 0 Absolute Nucleated RBC 0 Nucleated RBC % 0.2 Sodium 130 L Potassium 3.8 Chloride 95 L Carbon Dioxide 26 Anion Gap 9 BUN 46 H Creatinine 1.54 H Est GFR ( Amer) 45.0 Est GFR (Non-Af Amer) 35.0 BUN/Creatinine Ratio 29.9 H Glucose 136 H Calcium 9.0 Total Bilirubin 1.80 H AST 31 ALT 43 Alkaline Phosphatase 154 H Total Protein 5.1 L Albumin 2.3 L Globulin 2.8 Albumin/Globulin Ratio 0.8 L Assessment: 57 yo F w 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 I have urged advancing diet VERY slowly, with clamping the NGT first for 4 hours and if no recurrent nausea starting sips of clears. She refuses this and wants to start full liquid now. Plan: advance diet as above, monitor closely bl LE doppler for L>R LE edema, new (likely related to anasarca but need to rule out DVT) SNF consult, patient will NOT receive any further chemotherapy until the time that her performance status has improved hyponatremia: markedly improved severe protein calorie malnutrition, due to poor PO intake from N/V and now SBO. resume diet today overall prognosis quite poor, which I expressed to Gayatri, but she is clear that she wants to be full code and keep "fighting this" dispo: SNF, likely 1-2 days
[2018-03-19] MEDS ORDERED: LORazepam INJ* 2 MG/ML 1 ML VIAL IV PUSH ONE (10:00)
--- NOTE | 2018-03-19 11:47 | RAD ---
HISTORY: Bilateral lower extremity swelling. COMPARISONS: None relevant TECHNIQUE: Multiple transverse and longitudinal ultrasound images were obtained of the bilateral lower extremities from the level of the common femoral vein inferiorly through to the infrapopliteal veins using grayscale, color Doppler, and spectral Doppler imaging with and without compression and with augmentation. FINDINGS: The study is limited by patient body habitus and soft tissue edema. VEINS: The venous system of the bilateral lower extremities is compressible throughout its course, with normal flow on color Doppler imaging and normal response to augmentation on spectral Doppler imaging. SOFT TISSUES: There is diffuse mild subcutaneous edema. OTHER FINDINGS: None. IMPRESSION: NO RIGHT LOWER EXTREMITY DEEP VEIN THROMBOSIS. NO LEFT LOWER EXTREMITY DEEP VEIN THROMBOSIS
[2018-03-19] MEDS: Mometasone 220 MCG MDI INH SCH (20:25)
[2018-03-20] MEDS: LORazepam INJ* 2 MG/ML 1 ML VIAL IV PUSH PRN ×5 (00:33→22:18)
[2018-03-20] MEDS: PROCHLORPERAZINE INJ 5 MG/ML 2 ML VIAL IV PRN ×2 (00:34→07:29)
[2018-03-20] MEDS: Ondansetron ODT TAB* 4 MG SL PRN (02:44)
[2018-03-20] MEDS: Heparin VIAL(*) 5000 UNITS/ML VIAL (FIVE THOUSAND) SUBCUT SCH ×3 (05:50→21:31)
[2018-03-20 06:05] LABS: ABS Basophils 0 10^3/ul (0-0.2); ABS Eosinophils 0 10^3/ul (0-0.6); ABS Lymphocytes 0.8 10^3/ul (1.0-4.8); ABS Monocytes 1.1 10^3/ul (0-0.8); ABS Neutrophils 1.8 10^3/ul (1.5-7.7); ABS Nucleated RBC 0 10^3/ul; Eosinophil % 0 % (0-6); Hematocrit 26 % (35-47); Hemoglobin 8.8 g/dl (12.0-16.0); Lymphocyte % 21.3 % (25-47); Mean Corpuscular HGB Conc 34 g/dl (31-36); Mean Corpuscular Hemoglobin 35 pg (27-31); Mean Corpuscular Volume 103 fL (80-97); Mean Platelet Volume 8.2 um3 (7.4-10.4); Nucleated Red Blood Cells % 0.2; Platelet Count 215 10^3/ul (150-450); Red Blood Count 2.52 10^6/ul (4.0-5.4); Red Cell Distribution Width 16 % (10.5-15); White Blood Count 3.7 10^3/ul (3.5-10.8)
[2018-03-20] MEDS: Clotrimazole TROCHE* 10 MG TROCHE PO SCH ×5 (06:11→21:36)
[2018-03-20 06:23] LABS: EGFR Non-African American 47.1 (>60)
[2018-03-20] MEDS: Metoprolol Succinate XL TAB* 100 MG PO SCH (07:13)
[2018-03-20] MEDS: Magnesium Oxide TAB* 400 MG PO SCH ×3 (07:13→22:14)
[2018-03-20] MEDS: Diltiazem CD CAP* 180 MG PO SCH (07:13)
[2018-03-20] MEDS: Dexamethasone IV* 4 MG/ML 1 ML (4 MG) IV SLOW PU SCH ×2 (07:28→21:30)
[2018-03-20] MEDS: Pantoprazole IV* 40 MG IV SCH (07:29)
[2018-03-20] MEDS: NS 0.9% 1000 ML* 1,000 ML IV SCH ×2 (09:50→23:36)
--- NOTE | 2018-03-20 11:30 | PN ---
Progress Note - Progress Note Date of Service: 03/20/18 SOAP: Subjective: [Patient felt much better yesterday am and started taking clear liquids. She had no abdominal pain, nausea or vomiting all day. Overnight, she awoke with severe nausea and vomited twice and again this am. At the time of evaluation this am, she denies abdominal or nausea. She has an appetite. No BM.] Objective: [ Albuterol (Ventolin 2.5 Mg/3 Ml Neb.Stella*) 2.5 mg INH Q4H PRN PRN Reason: SOB/WHEEZING Last Admin: 03/16/18 05:29 Dose: 2.5 mg Albuterol (Ventolin Hfa Inhaler*) 2 puff INH Q4H PRN PRN Reason: SOB/WHEEZING Last Admin: 03/16/18 03:34 Dose: 2 inh Alprazolam (Xanax Tab*) 0.5 mg PO Q6H PRN PRN Reason: ANXIETY Last Admin: 03/17/18 03:02 Dose: 0.5 mg Clotrimazole (Mycelex Bethanie*) 10 mg PO FIVE TIMES DAILY [facility] Last Admin: 03/20/18 08:36 Dose: Not Given Dexamethasone Sodium Phosphate (Decadron Iv*) 8 mg IV SLOW PU BID [facility] Last Admin: 03/20/18 07:28 Dose: 8 mg Diltiazem HCl (Cardizem Cd Cap*) 180 mg PO DAILY [facility] Last Admin: 03/20/18 07:13 Dose: Not Given Heparin Sodium (Porcine) (Heparin Vial(*)) 5,000 units SUBCUT Q8HR [facility] Last Admin: 03/20/18 05:50 Dose: 5,000 units Heparin Sodium (Porcine) (Heparin Flush Port (Ivad)) 5 ml FLUSH DAILY [facility] PRN Reason: Protocol Last Admin: 03/20/18 07:13 Dose: Not Given Sodium Chloride (Ns 0.9% 1000 Ml*) 1,000 mls @ 75 mls/hr IV PER RATE [facility] Last Admin: 03/20/18 09:50 Dose: 75 mls/hr Lorazepam (Ativan Inj*) 0.5 mg IV PUSH Q4H PRN PRN Reason: Anxiety/nausea/discomfort Last Admin: 03/20/18 05:01 Dose: 0.5 mg Magnesium Oxide (Magox 400 Tab*) 400 mg PO BID [facility] Last Admin: 03/20/18 07:13 Dose: Not Given Metoprolol Succinate (Toprol Xl Tab*) 100 mg PO DAILY [facility] Last Admin: 03/20/18 07:13 Dose: Not Given Mometasone Furoate (Asmanex 220 Mcg Mdi *) 2 puff INH 2100 [facility] Last Admin: 03/19/18 20:25 Dose: 2 puff Ondansetron HCl (Zofran Odt Tab*) 8 mg SL Q6H PRN PRN Reason: NAUSEA Last Admin: 03/20/18 02:44 Dose: 8 mg Ondansetron HCl (Zofran Inj*) 8 mg IV Q8H PRN PRN Reason: NAUSEA Last Admin: 03/18/18 07:34 Dose: 8 mg Pantoprazole Sodium (Protonix Iv*) 40 mg IV DAILY [facility] Last Admin: 03/20/18 07:29 Dose: 40 mg Prochlorperazine Edisylate (Compazine Inj*) 10 mg IV Q6H PRN PRN Reason: NAUSEA/VOMITING Last Admin: 03/20/18 07:29 Dose: 10 mg Scopolamine (Transderm-Scop 1.5 Mg Patch*) 1 patch TRANSDERM Q72H [facility] Last Admin: 03/18/18 22:47 Dose: 1 patch Laboratory Results - last 24 hr 03/19/18 03/20/18 03/20/18 08:14 05:45 05:45 WBC 2.0 L 3.7 RBC 2.49 L 2.52 L Hgb 8.6 L 8.8 L Hct 26 L 26 L MCV 102 H 103 H MCH 35 H 35 H MCHC 34 34 RDW 16 H 16 H Plt Count 169 215 MPV 8.2 8.2 Neut % (Auto) 40.1 49.7 Lymph % (Auto) 29.6 21.3 L [place] % (Auto) 30.0 H 28.8 H Eos % (Auto) 0.1 0 Baso % (Auto) 0.2 0.2 Absolute Neuts (auto) 0.8 L* 1.8 Absolute Lymphs (auto) 0.6 L 0.8 L Absolute Monos (auto) 0.6 1.1 H Absolute Eos (auto) 0 0 Absolute Basos (auto) 0 0 Absolute Nucleated RBC 0 0 Nucleated RBC % 0.2 0.2 Sodium 131 L Potassium 3.5 Chloride 96 L Carbon Dioxide 26 Anion Gap 9 BUN 42 H Creatinine 1.19 H Est GFR ( Amer) 60.6 Est GFR (Non-Af Amer) 47.1 BUN/Creatinine Ratio 35.3 H Glucose 142 H Calcium 9.2 Total Bilirubin 1.30 H AST 29 ALT 39 Alkaline Phosphatase 152 H Total Protein 5.3 L Albumin 2.4 L Globulin 2.9 Albumin/Globulin Ratio 0.8 L Vital Signs: Temp Pulse Resp BP Pulse Ox 97.4 F 114 16 124/72 94 03/20/18 07:46 03/20/18 07:46 03/20/18 07:46 03/20/18 07:46 03/20/18 07:46 Exam: Gen: Chronically ill appearing 57 yo female in NAD HEENT: MMM CV: RRR Resp: lungs CTA Abd: soft, but distended. BS present in all quadrants, nonTTP Ext: trace edema] Assessment: [57 yo female with advanced uterine leiomyosarcoma s/p C1 trabectedin admitted with hyponatremia and intractable n/v who subsequently developed a SBO.] Plan: [1. SBO - initial improvement and success with clear liquids yesterday - vomited again overnight and early this am, but BS present on exam now - KUB ordered and pending - NPO until KUB can be reviewed 2. Hyponatremia - improved 3. Uterine leiomyosarcoma - therapy on hold due to multiple complications - patient unfortunately has little insight in to the severity of her illness - palliative consult appreciated - patient would like to remain FULL CODE Dispo: patient will require DAVID when appropriate for dc]
--- NOTE | 2018-03-20 15:14 | RAD ---
Indication: Recurrent vomiting. Flat plate of the abdomen demonstrates air distended stomach. Moderately distended loops of small bowel are noted. IMPRESSION: Air distended stomach. Moderately distended loops of small bowel.
--- NOTE | 2018-03-20 19:33 | RAD ---
Indication: Confirm nasogastric tube placement. Single frontal view of the chest performed at 1826 hours was reviewed. Comparison is made with previous exam dated March 18, 2018. Cardiomegaly is noted. Central line is in place. Nasogastric tube is in place. IMPRESSION: CARDIOMEGALY WITHOUT EVIDENCE OF ACTIVE CARDIOPULMONARY DISEASE. NASOGASTRIC TUBE IS IN PLACE.
[2018-03-20] MEDS: Mometasone 220 MCG MDI INH SCH (19:49)
[2018-03-21] MEDS: LORazepam INJ* 2 MG/ML 1 ML VIAL IV PUSH PRN ×4 (03:20→20:50)
[2018-03-21] MEDS: Clotrimazole TROCHE* 10 MG TROCHE PO SCH ×5 (05:22→20:59)
[2018-03-21] MEDS: Heparin VIAL(*) 5000 UNITS/ML VIAL (FIVE THOUSAND) SUBCUT SCH ×3 (05:33→21:00)
--- NOTE | 2018-03-21 11:23 | PN ---
Progress Note - Progress Note Date of Service: 03/21/18 SOAP: Subjective: []She is a little better this am. No nausea. Still SOB. Not in pain. Cannot stand up and remains very weak. No fevers. Has foly in and wants to keep it. Albuterol (Ventolin 2.5 Mg/3 Ml Neb.Stella*) 2.5 mg INH Q4H PRN PRN Reason: SOB/WHEEZING Last Admin: 03/16/18 05:29 Dose: 2.5 mg Albuterol (Ventolin Hfa Inhaler*) 2 puff INH Q4H PRN PRN Reason: SOB/WHEEZING Last Admin: 03/16/18 03:34 Dose: 2 inh Alprazolam (Xanax Tab*) 0.5 mg PO Q6H PRN PRN Reason: ANXIETY Last Admin: 03/17/18 03:02 Dose: 0.5 mg Clotrimazole (Mycelex Bethanie*) 10 mg PO FIVE TIMES DAILY [facility] Last Admin: 03/21/18 05:22 Dose: Not Given Dexamethasone (Decadron Oral Solution*) 8 mg PO BID [facility] Diltiazem HCl (Cardizem Cd Cap*) 180 mg PO DAILY [facility] Last Admin: 03/20/18 07:13 Dose: Not Given Heparin Sodium (Porcine) (Heparin Vial(*)) 5,000 units SUBCUT Q8HR [facility] Last Admin: 03/21/18 05:33 Dose: 5,000 units Heparin Sodium (Porcine) (Heparin Flush Port (Ivad)) 5 ml FLUSH DAILY [facility] PRN Reason: Protocol Last Admin: 03/20/18 07:13 Dose: Not Given Lorazepam (Ativan Inj*) 0.5 mg IV PUSH Q4H PRN PRN Reason: Anxiety/nausea/discomfort Last Admin: 03/21/18 03:20 Dose: 0.5 mg Metoclopramide HCl (Reglan Liq*) 10 mg PO Q6H [facility] Metoprolol Succinate (Toprol Xl Tab*) 100 mg PO DAILY [facility] Last Admin: 03/20/18 07:13 Dose: Not Given Morphine Sulfate (Morphine Oral Concentrate*) 5 mg SL Q2H PRN PRN Reason: PAIN Ondansetron HCl (Zofran Odt Tab*) 8 mg SL Q6H PRN PRN Reason: NAUSEA Last Admin: 03/20/18 02:44 Dose: 8 mg Pantoprazole Sodium (Protonix Iv*) 40 mg IV DAILY [facility] Last Admin: 03/20/18 07:29 Dose: 40 mg Scopolamine (Transderm-Scop 1.5 Mg Patch*) 1 patch TRANSDERM Q72H [facility] Last Admin: 03/18/18 22:47 Dose: 1 patch Objective: [] Vital Signs Temp Pulse Resp BP Pulse Ox 98.4 F 115 28 136/63 98 03/21/18 07:22 03/21/18 07:22 03/21/18 07:22 03/21/18 07:22 03/21/18 07:22 Exam: Gen: Chronically ill appearing 57 yo female in NAD obese HEENT: MMM CV: RRR Resp: lungs CTA Abd: soft, but distended. BS present in all quadrants, nonTTP Ext: trace edema Assessment: [57 yo female with advanced uterine leiomyosarcoma s/p C1 trabectedin admitted with hyponatremia and intractable n/v who subsequently developed a SBO. Today dicussed that small bowl obstruction is from her cancer and it is the cancer that has been maker her weaker. Chemotherapy has been to hard on her body and not effective against the cancer. We can not do any more chemotherapy or treatment for her cancer. We need to maximize time with family. Meeting today with patient, , daughter, sister and mother. Plan: 1. We met with patient and discussed hospice. She does not feel she can go home. Both patient and family would like hospice residence on [facility], has had family at facility in the past. 2. Will go to clear liquids and clamp NGT. Try clear liquids. 3. Modification of medications (see above). Will stop Mg and changed to liquids meds where possible. Reglan from compazine for nausea. Continuation of metoprolol and Dilaudid. 4. She wants to keep Manzanares in place, will leave in on discharge. 5. DNR/DNI time with patient and family 45 min
[2018-03-21] MEDS: Metoprolol Succinate XL TAB* 100 MG PO SCH (11:25)
[2018-03-21] MEDS: Diltiazem CD CAP* 180 MG PO SCH (11:25)
[2018-03-21] MEDS: Metoclopramide LIQ* 10 MG/10 ML ORAL.SOLN PO SCH ×3 (11:26→20:57)
[2018-03-21] MEDS: Pantoprazole IV* 40 MG IV SCH (11:29)
[2018-03-21] MEDS: Magnesium Oxide TAB* 400 MG PO SCH (11:40)
[2018-03-21] MEDS: Dexamethasone IV* 4 MG/ML 1 ML (4 MG) IV SLOW PU SCH (11:40)
--- NOTE | 2018-03-21 16:17 | PN ---
Progress Note - Progress Note Date of Service: 03/21/18 Note: Met with patient and her sister and her [id number]. Dr. Atkinson was able to impress upon the patient the irreversible nature of her situation, and she has now changed her code status to DNR/DNI and she realizes she needs end-of-life care. She continues with brownish NG aspirate to wall suction, and has very scant bowel sounds on my exam. She is very eager to have a bed at the [facility]. I will work on arranging for that on Saturday, if a bed is still available at that time. Thanks.
[2018-03-21] MEDS: Dexamethasone Oral Solution* 1 MG/ML 10 ML UDC (10 MG) PO SCH (20:53)
[2018-03-21] MEDS: Scopolamine 1.5 mg* PATCH TRANSDERM SCH (20:55)
[2018-03-22] MEDS: LORazepam INJ* 2 MG/ML 1 ML VIAL IV PUSH PRN ×3 (02:28→20:45)
[2018-03-22] MEDS: Metoclopramide LIQ* 10 MG/10 ML ORAL.SOLN PO SCH ×4 (05:24→20:49)
[2018-03-22] MEDS: Clotrimazole TROCHE* 10 MG TROCHE PO SCH ×5 (05:25→20:55)
[2018-03-22] MEDS: Heparin VIAL(*) 5000 UNITS/ML VIAL (FIVE THOUSAND) SUBCUT SCH ×3 (05:26→20:56)
[2018-03-22] MEDS: Dexamethasone Oral Solution* 1 MG/ML 10 ML UDC (10 MG) PO SCH ×2 (09:42→20:49)
[2018-03-22] MEDS: Pantoprazole IV* 40 MG IV SCH (09:42)
[2018-03-22] MEDS: Metoprolol Succinate XL TAB* 100 MG PO SCH (09:42)
[2018-03-22] MEDS: Diltiazem CD CAP* 180 MG PO SCH (09:42)
[2018-03-22] MEDS: Morphine ORAL CONCENTRATE* 5 MG/0.25 ML ORAL.SYRIN SL PRN (20:48)
[2018-03-23] MEDS: LORazepam INJ* 2 MG/ML 1 ML VIAL IV PUSH PRN ×3 (02:39→12:56)
[2018-03-23] MEDS: Morphine ORAL CONCENTRATE* 5 MG/0.25 ML ORAL.SYRIN SL PRN ×6 (02:43→21:45)
[2018-03-23] MEDS: ALPRAZolam TAB* 0.5 MG PO PRN ×2 (03:28→11:53)
[2018-03-23] MEDS ORDERED: Sulfamethox/Trimethoprim DS 800/160* TAB PO ONE (03:40)
[2018-03-23] MEDS: Metoclopramide LIQ* 10 MG/10 ML ORAL.SOLN PO SCH ×4 (04:08→21:35)
[2018-03-23 04:52] LABS: Urine Appearance Turbid; Urine Blood 3+ (Negative); Urine Color Amber; Urine Ketones Negative (Negative); Urine Protein 2+(100 mg/dL) (Negative); Urine Specific Gravity 1.019 (1.010-1.030); Urine Urobilinogen Positive (Negative)
[2018-03-23] MEDS: Clotrimazole TROCHE* 10 MG TROCHE PO SCH ×6 (05:35→21:42)
[2018-03-23] MEDS: Heparin VIAL(*) 5000 UNITS/ML VIAL (FIVE THOUSAND) SUBCUT SCH ×3 (05:35→21:40)
[2018-03-23] MEDS: Dexamethasone Oral Solution* 1 MG/ML 10 ML UDC (10 MG) PO SCH ×2 (08:08→21:35)
[2018-03-23] MEDS: Pantoprazole IV* 40 MG IV SCH (08:08)
[2018-03-23] MEDS: Diltiazem CD CAP* 180 MG PO SCH (08:09)
[2018-03-23] MEDS: Metoprolol Succinate XL TAB* 100 MG PO SCH (08:09)
[2018-03-23] MEDS ORDERED: Senna TAB PO PRN (10:22)
[2018-03-23] MEDS: Sulfamethox/Trimethoprim DS 800/160* TAB PO SCH ×2 (11:49→21:36)
[2018-03-23] MEDS: Ondansetron ODT TAB* 4 MG SL PRN (20:07)
[2018-03-24] MEDS: Morphine ORAL CONCENTRATE* 5 MG/0.25 ML ORAL.SYRIN SL PRN ×6 (01:12→16:37)
[2018-03-24] MEDS: Ondansetron ODT TAB* 4 MG SL PRN ×3 (02:02→14:24)
[2018-03-24] MEDS: ALPRAZolam TAB* 0.5 MG PO PRN ×2 (02:02→06:02)
[2018-03-24] MEDS: Metoclopramide LIQ* 10 MG/10 ML ORAL.SOLN PO SCH ×4 (03:57→21:21)
[2018-03-24] MEDS: Heparin VIAL(*) 5000 UNITS/ML VIAL (FIVE THOUSAND) SUBCUT SCH ×3 (04:00→21:31)
[2018-03-24] MEDS: Clotrimazole TROCHE* 10 MG TROCHE PO SCH ×5 (04:01→21:30)
[2018-03-24] MEDS: Sulfamethox/Trimethoprim DS 800/160* TAB PO SCH ×2 (08:35→21:30)
[2018-03-24] MEDS: Diltiazem CD CAP* 180 MG PO SCH (08:36)
[2018-03-24] MEDS: Dexamethasone Oral Solution* 1 MG/ML 10 ML UDC (10 MG) PO SCH ×2 (08:36→21:27)
[2018-03-24] MEDS: Pantoprazole IV* 40 MG IV SCH (08:37)
[2018-03-24] MEDS: Metoprolol Succinate XL TAB* 100 MG PO SCH (08:37)
[2018-03-24] MEDS ORDERED: LORazepam INJ* 2 MG/ML 1 ML VIAL IV PUSH PRN (11:57)
--- NOTE | 2018-03-24 14:14 | PN ---
Progress Note - Progress Note Date of Service: 03/24/18 Note: I met with Gayatri, who had been hoping for a bed at the [facility]. Today she is nauseated and vomiting yellow bilious fluid. I hear scan bowel sounds. Gayatri says she has been passing flatus but this is doubtful. Her abdomen is distended and tympanitic. She is somewhat dyspneic as well. Unfortunately the one bed at [facility] was taken by an existing hospice patient. There is however a bed at the [facility] in [place], which we will try to arrange for Gayatri to have tomorrow morning. Her sister Bernarda and her Reyes are also in agreement with this plan. Gayatri will be referred to [facility].
--- NOTE | 2018-03-24 14:33 | PN ---
Progress Note - Progress Note Date of Service: 03/24/18 SOAP: Subjective: []Pt. seen and examined this AM approx. 11am. Feeling well today with less pain though nausea remains biggest issue. Very hopeful for bed at hospice residence where her sister was. Mother, daughter, and neice at bedside and involved in care. Medications: Albuterol (Ventolin 2.5 Mg/3 Ml Neb.Stella*) 2.5 mg INH Q4H PRN PRN Reason: SOB/WHEEZING Last Admin: 03/16/18 05:29 Dose: 2.5 mg Albuterol (Ventolin Hfa Inhaler*) 2 puff INH Q4H PRN PRN Reason: SOB/WHEEZING Last Admin: 03/16/18 03:34 Dose: 2 inh Alprazolam (Xanax Tab*) 0.5 mg PO Q4H PRN PRN Reason: ANXIETY Last Admin: 03/24/18 06:02 Dose: 0.5 mg Clotrimazole (Mycelex Bethanie*) 10 mg PO FIVE TIMES DAILY [facility] Last Admin: 03/24/18 13:36 Dose: Not Given Dexamethasone (Decadron Oral Solution*) 8 mg PO BID [facility] Last Admin: 03/24/18 08:36 Dose: 8 mg Diltiazem HCl (Cardizem Cd Cap*) 180 mg PO DAILY [facility] Last Admin: 03/24/18 08:36 Dose: 180 mg Heparin Sodium (Porcine) (Heparin Vial(*)) 5,000 units SUBCUT Q8HR [facility] Last Admin: 03/24/18 13:45 Dose: 5,000 units Heparin Sodium (Porcine) (Heparin Flush Port (Ivad)) 5 ml FLUSH DAILY [facility] PRN Reason: Protocol Last Admin: 03/24/18 08:37 Dose: 5 ml Lorazepam (Ativan Inj*) 0.5 mg IV PUSH Q4H PRN PRN Reason: Anxiety/nausea Last Admin: 03/24/18 12:45 Dose: 0.5 mg Lorazepam (Ativan Inj*) 1 mg IV PUSH UC ONCE ONE Stop: 03/24/18 14:58 Lorazepam (Ativan Tab(*)) 0.5 mg SL Q4H PRN PRN Reason: Anxiety/nausea Metoclopramide HCl (Reglan Liq*) 10 mg PO Q6H [facility] Last Admin: 03/24/18 08:53 Dose: 10 mg Metoprolol Succinate (Toprol Xl Tab*) 100 mg PO DAILY [facility] Last Admin: 03/24/18 08:37 Dose: 100 mg Morphine Sulfate (Morphine Oral Concentrate*) 5 mg SL Q2H PRN PRN Reason: PAIN Last Admin: 03/24/18 13:44 Dose: 5 mg Ondansetron HCl (Zofran Odt Tab*) 8 mg SL Q6H PRN PRN Reason: NAUSEA Last Admin: 03/24/18 14:24 Dose: 8 mg Pantoprazole Sodium (Protonix Iv*) 40 mg IV DAILY [facility] Last Admin: 03/24/18 08:37 Dose: 40 mg Scopolamine (Transderm-Scop 1.5 Mg Patch*) 1 patch TRANSDERM Q72H [facility] Last Admin: 03/21/18 20:55 Dose: 1 patch Senna (Senokot Tab*) 1 tab PO DAILY PRN PRN Reason: CONSTIPATION Last Admin: 03/23/18 11:49 Dose: 1 tab Trimethoprim/Sulfamethoxazole (Bactrim Ds 800/160 Tab*) 1 tab PO BID [facility] Last Admin: 03/24/18 08:35 Dose: 1 tab Objective: [] Vital Signs Temp Pulse Resp BP Pulse Ox 97.8 F 108 24 120/61 96 03/24/18 11:31 03/24/18 11:31 03/24/18 13:52 03/24/18 11:31 03/24/18 11:31 A&Ox3, EOMI, PINEDA though notably weak otherwise neuro grossly non-focal Resp. even and slightly labored without audible wheeze or rhonchi +Edema and abd. large and distended, tender Yellow urine output in byrne Buttocks pink with excoriated area Assessment: []57 yo female with advanced uterine sarcoma now transitioning to hospice. Plan: []Will transfer to [facility] Adjusted ativan and can use IV for transport Supportive care provided, cont. comfort measures
[2018-03-24] MEDS ORDERED: LORazepam INJ* 2 MG/ML 1 ML VIAL IV PUSH ONE (14:57)
[2018-03-24] MEDS: LORazepam TAB(*) 0.5 MG SL PRN ×3 (16:37→23:18)
[2018-03-24] MEDS: Ondansetron ODT TAB* 4 MG SL SCH ×2 (17:54→21:29)
[2018-03-24] MEDS: Scopolamine 1.5 mg* PATCH TRANSDERM SCH (21:24)
[2018-03-25] MEDS: Ondansetron ODT TAB* 4 MG SL SCH ×6 (03:01→20:19)
[2018-03-25] MEDS: Metoclopramide LIQ* 10 MG/10 ML ORAL.SOLN PO SCH ×4 (04:16→20:20)
[2018-03-25] MEDS: Heparin VIAL(*) 5000 UNITS/ML VIAL (FIVE THOUSAND) SUBCUT SCH ×3 (05:37→20:27)
[2018-03-25] MEDS: Clotrimazole TROCHE* 10 MG TROCHE PO SCH ×5 (05:50→20:27)
[2018-03-25] MEDS: Diltiazem CD CAP* 180 MG PO SCH (08:32)
[2018-03-25] MEDS: Metoprolol Succinate XL TAB* 100 MG PO SCH (08:32)
[2018-03-25] MEDS: Sulfamethox/Trimethoprim DS 800/160* TAB PO SCH (08:32)
[2018-03-25] MEDS: Dexamethasone Oral Solution* 1 MG/ML 10 ML UDC (10 MG) PO SCH ×3 (08:42→20:26)
[2018-03-25] MEDS: Pantoprazole IV* 40 MG IV SCH (08:43)
[2018-03-25] MEDS: LORazepam TAB(*) 0.5 MG SL PRN ×5 (08:51→22:25)
[2018-03-25] MEDS: Morphine ORAL CONCENTRATE* 5 MG/0.25 ML ORAL.SYRIN SL PRN ×2 (11:18→20:24)
--- NOTE | 2018-03-25 12:04 | PN ---
Progress Note - Progress Note Date of Service: 03/25/18 SOAP: Subjective: []Significant nausea today. Mild improvement with ativan. Emesis x2. Still no BM. Would prefer not to have NG placed again. Understands plan for transfer to [facility] for hospice once bed available. Byrne leaking per nursing. No complaints per pt. Medications: Albuterol (Ventolin 2.5 Mg/3 Ml Neb.Stella*) 2.5 mg INH Q4H PRN PRN Reason: SOB/WHEEZING Last Admin: 03/16/18 05:29 Dose: 2.5 mg Albuterol (Ventolin Hfa Inhaler*) 2 puff INH Q4H PRN PRN Reason: SOB/WHEEZING Last Admin: 03/16/18 03:34 Dose: 2 inh Alprazolam (Xanax Tab*) 0.5 mg PO Q4H PRN PRN Reason: ANXIETY Last Admin: 03/24/18 06:02 Dose: 0.5 mg Clotrimazole (Mycelex Bethanie*) 10 mg PO FIVE TIMES DAILY [facility] Last Admin: 03/25/18 08:32 Dose: Not Given Dexamethasone (Decadron Oral Solution*) 8 mg PO BID [facility] Last Admin: 03/25/18 08:42 Dose: 8 mg Diltiazem HCl (Cardizem Cd Cap*) 180 mg PO DAILY [facility] Last Admin: 03/25/18 08:32 Dose: Not Given Heparin Sodium (Porcine) (Heparin Vial(*)) 5,000 units SUBCUT Q8HR [facility] Last Admin: 03/25/18 05:37 Dose: 5,000 units Heparin Sodium (Porcine) (Heparin Flush Port (Ivad)) 5 ml FLUSH DAILY [facility] PRN Reason: Protocol Last Admin: 03/25/18 11:19 Dose: 5 ml Lorazepam (Ativan Inj*) 0.5 mg IV PUSH Q4H PRN PRN Reason: Anxiety/nausea Last Admin: 03/24/18 12:45 Dose: 0.5 mg Lorazepam (Ativan Tab(*)) 0.5 mg SL Q2H PRN PRN Reason: Anxiety/nausea Last Admin: 03/25/18 11:49 Dose: 0.5 mg Metoclopramide HCl (Reglan Liq*) 10 mg PO Q6H [facility] Last Admin: 03/25/18 08:43 Dose: 10 mg Metoprolol Succinate (Toprol Xl Tab*) 100 mg PO DAILY [facility] Last Admin: 03/25/18 08:32 Dose: Not Given Morphine Sulfate (Morphine Oral Concentrate*) 5 mg SL Q2H PRN PRN Reason: PAIN Last Admin: 03/25/18 11:18 Dose: 5 mg Ondansetron HCl (Zofran Odt Tab*) 4 mg SL Q4HR [facility] Last Admin: 03/25/18 08:43 Dose: 4 mg Pantoprazole Sodium (Protonix Iv*) 40 mg IV DAILY [facility] Last Admin: 03/25/18 08:43 Dose: 40 mg Scopolamine (Transderm-Scop 1.5 Mg Patch*) 1 patch TRANSDERM Q72H [facility] Last Admin: 03/24/18 21:24 Dose: 1 patch Senna (Senokot Tab*) 1 tab PO DAILY PRN PRN Reason: CONSTIPATION Last Admin: 03/23/18 11:49 Dose: 1 tab Objective: [] Vital Signs Temp Pulse Resp BP Pulse Ox 98.0 F 104 28 129/78 96 03/24/18 19:13 03/25/18 00:29 03/25/18 11:49 03/24/18 19:13 03/25/18 00:29 A&Ox3, EOMI, neuro grossly non-focal Resp. even and slightly labored with mild tachypnea, no audible adventitous sounds Limited assessment due to palliative nature of visit Laboratory Results - last 24 hr 03/24/18 23:48 POC Glucose (mg/dL) 107 H Assessment: []57 yo female with metastatic uterine sarcoma presenting 03/15 less then 12 hours after discharge with recurrent weakness and subsequent SBO unresolved with medical management and underlying aggressive disease felt to be cause, therefore plan for transition to hospice. She was admitted 03/12 approx. 4 days after first dose of Trabectedin with significant toxicities (severe nausea with vomiting and subsequent hyponatremia and acute kidney injury), however felt strongly that she wanted to be back home and then unfortunately after discharge unable to manage at home and returned to ER. Upon arrival she did not appear to have a SBO as she had a BM just prior to d/c, however with progressive decline and poor mobility SBO confirmed on . Ultimately she has not tolerated tx. and aggressive sarcoma felt to be cause of SBO. She unfortunately continues to be very symptomatic despite comfort measures with aggressive anti-emetics likely driven by the SBO, a sequela of advanced cancer. Plan: []Increase ativan SL 0.5 to q2hrs from q4hrs PRN Hospice as soon as bed available. Change byrne and recheck UA
[2018-03-25 17:16] LABS: Urine Appearance Cloudy; Urine Blood 1+ (Negative); Urine Color Amber; Urine Ketones Negative (Negative); Urine Protein 1+(30 mg/dL) (Negative); Urine Specific Gravity 1.025 (1.010-1.030); Urine Urobilinogen Positive (Negative)
[2018-03-26] MEDS: LORazepam TAB(*) 0.5 MG SL PRN ×7 (00:37→23:56)
[2018-03-26] MEDS: Ondansetron ODT TAB* 4 MG SL SCH ×6 (00:37→21:35)
[2018-03-26] MEDS: Metoclopramide LIQ* 10 MG/10 ML ORAL.SOLN PO SCH ×5 (03:07→21:32)
[2018-03-26] MEDS: Heparin VIAL(*) 5000 UNITS/ML VIAL (FIVE THOUSAND) SUBCUT SCH ×3 (06:00→21:38)
[2018-03-26] MEDS: Clotrimazole TROCHE* 10 MG TROCHE PO SCH ×5 (06:00→21:38)
[2018-03-26] MEDS: Morphine ORAL CONCENTRATE* 5 MG/0.25 ML ORAL.SYRIN SL PRN ×7 (08:27→23:56)
[2018-03-26] MEDS: Pantoprazole IV* 40 MG IV SCH (08:40)
[2018-03-26] MEDS ORDERED: Levofloxacin 750 MG IVPREMIX(* 750 MG/150 ML BAG IVPB ONE (08:42)
[2018-03-26] MEDS: Diltiazem CD CAP* 180 MG PO SCH (09:05)
[2018-03-26] MEDS: Metoprolol Succinate XL TAB* 100 MG PO SCH (09:05)
--- NOTE | 2018-03-26 09:59 | PN ---
Progress Note - Progress Note Date of Service: 03/26/18 SOAP: Subjective: []Feels poorly. Stiff and soar and still with nausea. Has been in bed, weak. Not in pain at this time. Breathing is ok sitting still. Depressed. Albuterol (Ventolin 2.5 Mg/3 Ml Neb.Stella*) 2.5 mg INH Q4H PRN PRN Reason: SOB/WHEEZING Last Admin: 03/16/18 05:29 Dose: 2.5 mg Albuterol (Ventolin Hfa Inhaler*) 2 puff INH Q4H PRN PRN Reason: SOB/WHEEZING Last Admin: 03/16/18 03:34 Dose: 2 inh Alprazolam (Xanax Tab*) 0.5 mg PO Q4H PRN PRN Reason: ANXIETY Last Admin: 03/24/18 06:02 Dose: 0.5 mg Clotrimazole (Mycelex Bethanie*) 10 mg PO FIVE TIMES DAILY [facility] Last Admin: 03/26/18 09:05 Dose: Not Given Dexamethasone (Decadron Oral Solution*) 8 mg PO TID [facility] Last Admin: 03/25/18 20:26 Dose: Not Given Diltiazem HCl (Cardizem Cd Cap*) 180 mg PO DAILY [facility] Last Admin: 03/26/18 09:05 Dose: Not Given Heparin Sodium (Porcine) (Heparin Vial(*)) 5,000 units SUBCUT Q8HR [facility] Last Admin: 03/26/18 06:00 Dose: Not Given Levofloxacin/Dextrose (Levaquin 750 Mg Ivpremix(*)) 750 mg in 150 mls @ 100 mls /hr IVPB ONCE ONE Stop: 03/26/18 10:11 Lorazepam (Ativan Inj*) 0.5 mg IV PUSH Q4H PRN PRN Reason: Anxiety/nausea Last Admin: 03/24/18 12:45 Dose: 0.5 mg Lorazepam (Ativan Tab(*)) 0.5 mg SL Q2H PRN PRN Reason: Anxiety/nausea Last Admin: 03/26/18 08:39 Dose: 0.5 mg Metoclopramide HCl (Reglan Liq*) 10 mg PO Q6H [facility] Last Admin: 03/26/18 03:07 Dose: 10 mg Metoprolol Succinate (Toprol Xl Tab*) 100 mg PO DAILY [facility] Last Admin: 03/26/18 09:05 Dose: Not Given Morphine Sulfate (Morphine Oral Concentrate*) 10 mg SL Q2H PRN PRN Reason: PAIN Ondansetron HCl (Zofran Odt Tab*) 4 mg SL Q4HR [facility] Last Admin: 03/26/18 08:39 Dose: 4 mg Pantoprazole Sodium (Protonix Iv*) 40 mg IV DAILY [facility] Last Admin: 03/26/18 08:40 Dose: 40 mg Scopolamine (Transderm-Scop 1.5 Mg Patch*) 1 patch TRANSDERM Q72H [facility] Last Admin: 03/24/18 21:24 Dose: 1 patch Senna (Senokot Tab*) 1 tab PO DAILY PRN PRN Reason: CONSTIPATION Last Admin: 03/23/18 11:49 Dose: 1 tab Objective: [] Vital Signs Temp Pulse Resp BP Pulse Ox 98.0 F 104 26 129/78 96 03/24/18 19:13 03/26/18 02:42 03/26/18 08:39 03/24/18 19:13 03/26/18 02:42 HEENT - cushingoid, no thrush CTA Tachy, RRR Obese, NT +BS +3 AMOL Dark urine in byrne Assessment: []57 yo female with metastatic uterine sarcoma and small bowl obstruction. Focus is palliative care. She is stable bu continued difficulty with management of symptoms. Several issues today: Plan: 1. SBO. Stable and tolerating some clears, no NG 2. UTI. Starting Levofloxacin, may be contributing to her symptoms 3. Tachycardia. Will decrease Dex to 8 mg po bid 4. Nausea, add Scopolamine patch 5. Disp is hospice residence once bed available
[2018-03-26] MEDS ORDERED: Haloperidol INJ IV/IM* 5 MG/ML AMP IV SLOW PU PRN (10:56)
[2018-03-26] MEDS ORDERED: Famotidine IV * 20 MG in NS 0.9% 100 ML* 100 ML IVPB SCH (11:00)
[2018-03-26] MEDS: Dexamethasone Oral Solution* 1 MG/ML 10 ML UDC (10 MG) PO SCH ×2 (11:05→21:36)
[2018-03-26] MEDS ORDERED: Famotidine IV* 10 MG/ML 2 ML (20 mg) IV SCH (11:30)
[2018-03-26] MEDS: Famotidine IV* 10 MG/ML 2 ML (20 mg) IV SLOW PU SCH (12:10)
[2018-03-27] MEDS: Ondansetron ODT TAB* 4 MG SL SCH ×3 (01:58→10:17)
[2018-03-27] MEDS: LORazepam TAB(*) 0.5 MG SL PRN ×4 (01:58→09:57)
[2018-03-27] MEDS: Morphine ORAL CONCENTRATE* 5 MG/0.25 ML ORAL.SYRIN SL PRN ×6 (01:59→12:08)
[2018-03-27] MEDS: Metoclopramide LIQ* 10 MG/10 ML ORAL.SOLN PO SCH ×2 (04:12→10:16)
[2018-03-27] MEDS: Clotrimazole TROCHE* 10 MG TROCHE PO SCH ×2 (06:22→10:16)
[2018-03-27] MEDS: Heparin VIAL(*) 5000 UNITS/ML VIAL (FIVE THOUSAND) SUBCUT SCH (06:22)
[2018-03-27] MEDS: Dexamethasone Oral Solution* 1 MG/ML 10 ML UDC (10 MG) PO SCH (07:39)
[2018-03-27] MEDS: Diltiazem CD CAP* 180 MG PO SCH (07:40)
[2018-03-27] MEDS: Famotidine IV* 10 MG/ML 2 ML (20 mg) IV SLOW PU SCH (07:40)
[2018-03-27] MEDS: Metoprolol Succinate XL TAB* 100 MG PO SCH (07:40)
[2018-03-27] MEDS: Pantoprazole IV* 40 MG IV SCH (07:41)
[2018-03-27] MEDS ORDERED: Morphine VIAL* 4 MG/ML VIAL (1 ml vial) IV PRN (12:44)
[2018-03-27] MEDS ORDERED: Morphine PCA ADULT* 5 MG/ML 30 ML PCA SCH (13:00)
[2018-03-27 13:30] VITALS: BP 105/63
== END 2018-03-27 14:48 | disposition expired | DRG 374 ==
LOC: ED 16:12 → MED 20:31 → UNDODISIN 03-27 14:35
PROVIDERS: ADMIT Internal Medicine; ATTEND Internal Medicine Hematology & Oncology
PROC: 0W9G3ZZ Drainage of Peritoneal Cavity, Percutaneous Approach (ICD-10-PCS; principal; 2018-03-18)
PROC: 0D9670Z Drainage of Stomach with Drainage Device, Via Natural or Artificial Opening (ICD-10-PCS; 2018-03-18)
DX: C78.6 Secondary malignant neoplasm of retroperitoneum and peritoneum (principal); D61.810 Antineoplastic chemotherapy induced pancytopenia; E43 Unspecified severe protein-calorie malnutrition; C79.9 Secondary malignant neoplasm of unspecified site; J96.11 Chronic respiratory failure with hypoxia; I13.0 Hypertensive heart and chronic kidney disease with heart failure and stage 1 through stage 4 chronic kidney disease, or unspecified chronic kidney disease; E87.1 Hypo-osmolality and hyponatremia; N17.9 Acute kidney failure, unspecified; K56.609 Unspecified intestinal obstruction, unspecified as to partial versus complete obstruction; N39.0 Urinary tract infection, site not specified; Z68.41 Body mass index [BMI] 40.0-44.9, adult; E87.70 Fluid overload, unspecified; E78.00 Pure hypercholesterolemia, unspecified; I50.9 Heart failure, unspecified; J45.909 Unspecified asthma, uncomplicated; M19.90 Unspecified osteoarthritis, unspecified site; F41.0 Panic disorder [episodic paroxysmal anxiety]; F32.9 Major depressive disorder, single episode, unspecified; E11.9 Type 2 diabetes mellitus without complications; C55 Malignant neoplasm of uterus, part unspecified; E66.9 Obesity, unspecified; E88.09 Other disorders of plasma-protein metabolism, not elsewhere classified; D70.9 Neutropenia, unspecified; Z66 Do not resuscitate; N18.3 Chronic kidney disease, stage 3 (moderate); E11.22 Type 2 diabetes mellitus with diabetic chronic kidney disease; T45.1X5A Adverse effect of antineoplastic and immunosuppressive drugs, initial encounter; R62.7 Adult failure to thrive; Z88.1 Allergy status to other antibiotic agents; Z87.440 Personal history of urinary (tract) infections; Z90.710 Acquired absence of both cervix and uterus; Z90.49 Acquired absence of other specified parts of digestive tract; Z90.6 Acquired absence of other parts of urinary tract; Z82.49 Family history of ischemic heart disease and other diseases of the circulatory system; Z87.891 Personal history of nicotine dependence; Z72.89 Other problems related to lifestyle; Z80.0 Family history of malignant neoplasm of digestive organs; Z80.3 Family history of malignant neoplasm of breast; Z80.42 Family history of malignant neoplasm of prostate; Y92.9 Unspecified place or not applicable
CPT/HCPCS: 36415; 49083; 71045; 74018; 80048; 80053; 80076; 81003; 81015; 83605; 83735; 83880; 84484; 85025; 85610; 85730; 87077; 87086; 87088; 87186; 93005; 93970; 94640; 94760; 99231; 99232; 99233; 99283; A9270-GY; G8987-GO-CM; G8988-GO-CI; J0780; J1100; J1630; J1642; J1644; J1940; J2060; J2270; J2405